=== PATIENT | male | born 1965 | race Caucasian/White ===

== ENCOUNTER 2020-06-02 16:32 | Emergency (ER) | payer MEDICAID, SELFPAY ==
[2020-06-02 17:21] VITALS: BP 113/77; PULSE 90; RESP 18; TEMP 37.4; O2SAT 97; BMI 18.1
--- NOTE | 2020-06-02 17:22 | ED.URI ---
HPI - URI/Sore Throat General Chief Complaint: Upper Respiratory Symptoms Stated Complaint: COUGH Time Seen by Provider: 06/02/20 17:11 Source: patient Mode of arrival: ambulatory Limitations: no limitations History of Present Illness HPI Narrative: states around this time of the year he will get runny nose/congestion and does a postnasal drip he will get some nausea. Mother at home with similar symptoms. presenting seeking cover test. MD elicited complaint: rhinorrhea and nasal congestion Onset (ago): day(s) Consistency: constant Severity: mild Description of mucous: clear Relieving factors: nothing Context: sick contacts Treatments prior to arrival: none Related Data Allergies Allergy/AdvReac Type Severity Reaction Status Date / Time bictegravir [BICTEGRAVIR] Allergy Unknown FATIGUE Unverified 05/03/20 16:04 dapsone [DAPSONE] Allergy Unknown G6PD Unverified 05/03/20 16:04 DEFICIENT methotrexate [METHOTREXATE] Allergy Unknown HIGH Unverified 05/03/20 16:04 LFT's, Elevated LFTs Sulfa (Sulfonamide Allergy Unknown G6PD Unverified 05/03/20 16:04 Antibiotics) DEFICIENT [SULFA (SULFONAMIDE ANTIBIOTICS)] sulfamethoxazole Allergy Unknown G6PD Unverified 05/03/20 16:04 [From BACTRIM] DEFICIENT trimethoprim [From BACTRIM] Allergy Unknown G6PD Unverified 05/03/20 16:04 DEFICIENT Yozpklmvriq-Iciytyxzkc-Taesiow Allergy Unknown fatigue Uncoded 10/05/19 00:00 Sulfamethoxazole Allergy Unknown G6PD Uncoded 10/05/19 00:00 Deficient Sulfonamide Antibiotics Allergy Unknown Elevated Uncoded 10/05/19 00:00 LFTs Review of Systems Review of Systems: Constitutional: No Weight loss, No Fever, No Chills, No Night Sweats, No Fatigue, No Malaise ENT/Mouth: No Hearing loss, No Ear Pain, No Nasal Congestion, No Sinus Pain, No Hoarseness, No sore throat, No Swallowing Difficulty Eyes: No Eye Pain, No Swelling, No Redness, No Foreign Body, No Discharge, No Vision Changes Cardiovascular: No Chest Pain, No SOB, No Dyspnea on Exertion, No Orthopnea, No Edema, No Palpitations Respiratory: No Cough, No Sputum, No Wheezing, No Smoke Exposure, No Dyspnea Gastrointestinal: No Nausea, No Vomiting, No Diarrhea, No Constipation, No abdominal Pain, No Hematochezia, No Melena Genitourinary: no irregular bleeding, No Dysuria, No Urinary Frequency, No Hematuria, No Urinary Incontinence, No Urgency, No Flank Pain, No Urinary Flow Changes, No Hesitancy Musculoskeletal: No joint pain, No Myalgias, No Joint Swelling Skin: No Skin Lesions, No rash Neuro: No Weakness, No Numbness, No Paresthesias, No Loss of Consciousness, No Dizziness, No Headache Psych: No Anxiety/Panic, No Depression, No SI/HI/AH/VH, No Social Issues, Heme/Lymph: No Bruising, No Bleeding,No Lymphadenopathy Endocrine: No Polyuria, No Polydipsia, No Temperature Intolerance Yes all other systems are reviewed and are negative [facility] Past Medical History Attestation statement: The following information was validated with the patient. Social History Social History Smoking Status: Never smoker Substance Use Type: Marijuana Advance Directives: No Advance Directives Information Provided: No Physical Exam Vital Signs: Vital Signs: Reviewed Const: General: cooperative and healthy appearing; No acute distress or intoxicated appearing Nutritional Appearance: average body habitus Orientation/consciousness: patient oriented x3 HENMT: Head: Yes normal to inspection Ears: hearing grossly normal bilaterally Eyes: General: appearance normal, both eyes and all related structures Visual Navas: normal visual navas by confrontation Neck: Neck: Yes normal visual inspection and No tender Thyroid: Thyroid normal Chest: Chest palpation & inspection: normal inspection of the chest Resp: Effort & Inspection: normal respiratory effort Cardio: Jugular venous distension: no JVD GI: Inspection: Yes normal to inspection Percussion: Yes normal to percussion Auscultation: normal bowel sounds : General: Yes no CVA tenderness Back/Spine/Pelvis: Back: no CVA tenderness Skin: General skin exam: no rashes or lesions noted Neuro: General: patient oriented x3 Extrem: General: Yes normal to inspection Discharge Plan Discharge Clinical Impression: Viral infection Patient Disposition: Home, Self-Care Instructions: Viral Syndrome (ED) Additional Instructions: Based on your symptoms and history we have sent a COVID-19. Although your RESULT IS PENDING at this time. ? RESULTS should return within 72 hours. ? At this time you will be contacted with either NEGATIVE OR POSITIVE results. ? -Please wait until we contact you for your results. ? At this time you will be okay for discharge. Please plan for self quarantine for up to 14 days. Do not expose yourself to others. You may not go to work. If testing does come back negative you may return to activities as long as you are no longer having any symptoms for at least 3 days. ? Please continue to follow cold instructions and wash your hands frequently. You may take Tylenol as directed on the bottle for pain or fever. ? Patient seen in the emergency department on 02/10/2020 and should be excused from work until negative test results AND until 72 hours without any symptoms AND at least 10 days have passed since symptoms first appeared or since last exposure to COVID-19 positive patient ? CDC Guidelines for home isolation: - Stay away from others - WEAR A MASK if you are sick AND STAY HOME - Cover your mouth and nose with a tissue when you cough or sneeze. Dispose of tissues in a lined trash can and wash your hands immediately with soap and water for at least 20 seconds. If soap and water are not available, clean hands with alcohol-based hand presidential helicopter crew chief that contains at least 60% alcohol. - Clean your hands often with soap and water for at least 20 seconds - Avoid touching your eyes, nose and mouth with unwashed hands - Do not share dishes, drinking glasses, cups, eating utensils, towels, or bedding with other people in your home. After using these items, wash them thoroughly with soap and water or put in the electroplating sales representative. - Clean high-touch surfaces in your isolation area ( sick room and bathroom) every day; let a caregiver clean and disinfect high-touch surfaces in other areas of the home. Clean the area or item with soap and water or another detergent if it is dirty. Then, use a household disinfectant. - Limit contact with pets and animals: If you must care for a pet, wash your hands before and after interacting with them Referrals: Michell Mallory MD [Primary Care Provider] - 1 week (Phone VISIT )
== END 2020-06-02 17:30 | disposition home or self-care (01) ==
PROVIDERS: Nurse Practitioner Primary Care; Emergency Provider Emergency Medicine; PCP Family Medicine
DX: B34.9 Viral infection, unspecified (principal); Z20.828 Contact with and (suspected) exposure to other viral communicable diseases; F12.90 Cannabis use, unspecified, uncomplicated; Z21 Asymptomatic human immunodeficiency virus [HIV] infection status
CPT/HCPCS: 87635; 99283

== ENCOUNTER 2020-06-04 15:55 | Emergency (ER) | payer MEDICAID, SELFPAY ==
[2020-06-04 16:13] VITALS: BP 132/87; PULSE 86; RESP 18; TEMP 37.3; O2SAT 97; BMI 17.2
[2020-06-04 16:52] VITALS: BP 140/81; PULSE 78; RESP 18; O2SAT 97
--- NOTE | 2020-06-04 17:04 | PC.NURSE ---
PT ALERT AND ORIENTED, SKIN APPROPRIATE FOR ETHNICITY, RESPIRATIONS EVEN AND UNLABORED. PT REPORTS THAT HE IS UNABLE TO EAT, WHEN HE EATS HE STATES HIS STOMACH IS CLOSED, AND HAVING SOME ABD PAIN ALL OVER, DENIES NAUSEA AND DIARRHEA, ALSO REPORTS LOOSING WEIGHT IN LAST COUPLE OF WEEKS, SCLERA APPEARS SLIGHT YELLOW AT THIS TIME, VS STABLE
--- NOTE | 2020-06-04 18:57 | PC.NURSE ---
report taken from kolby patel. pt sitting in bed, rene just saw patient. pt in nad, pt neuro intact. pt very thin, sclera jaundice. primarily slovenian speaking
--- NOTE | 2020-06-04 19:09 | CT_ITS ---
EXAMINATION: CT CHEST, ABDOMEN AND PELVIS WITHOUT CONTRAST CLINICAL INFORMATION: Concern for malignancy. Unintentional weight loss. COMPARISON: Abdominal pelvic CT from May 10, 2020. TECHNIQUE: Contiguous axial thin section helical images of the chest, abdomen and pelvis without oral or IV contrast. The data set was reformatted in the coronal and sagittal planes and reviewed on an independent workstation. Please note that the examination is significantly limited secondary to the lack of IV contrast. As such, it is not possible to appropriately evaluate for any possible malignancy. DLP: 439 mGy-cm. FINDINGS: The heart is of normal size. There is no pericardial effusion. There is no axillary lymphadenopathy. There is no demonstrable hilar or mediastinal lymphadenopathy; however, please note that evaluation for hilar and mediastinal lymphadenopathy is significantly limited due to the lack of IV contrast. There are no chest wall masses. Review of lung windows demonstrates that there are neither pleural effusions nor pneumothoraces. There is atelectasis within the azygos esophageal recess. Within both lower lobes, there is multifocal patchy groundglass opacification. There are no pulmonary parenchymal nodules. The liver is of normal size and attenuation without focal lesions nor intrahepatic biliary ductal dilation. There are calculi within the gallbladder lumen. There is no wall thickening or discernible pericholecystic fluid. The spleen, pancreas, adrenal glands are unremarkable. Again identified is an atrophic left kidney. The right kidney is of normal size and attenuation. There is no hydronephrosis. Within the upper pole of the right kidney there are 2 punctate nonobstructive renal calculi each measuring 2 mm. There is a 2 mm nonobstructive calculus within the interpole region of the right kidney. There is no abdominal free fluid. There is neither mesenteric nor retroperitoneal lymphadenopathy. Normal opacified loops of small and large bowel are identified. There is no pelvic free fluid. The urinary bladder is unremarkable. There is neither pelvic nor inguinal lymphadenopathy. Bone windows: Neither sclerotic nor lytic bone lesions are identified. There are bilateral L5 pars defects with grade 1-2 anterolisthesis of L5 in relation to S1. IMPRESSION: Please note that the examination is significantly limited secondary to the lack of IV contrast. As such, it is not possible to appropriately evaluate for any possible malignancy. There is no demonstrable mediastinal or hilar lymphadenopathy. However, please note that evaluation is, as stated above, significantly limited. Patchy multifocal airspace disease noted within both lower lobes. This is most likely medical claims representative of an infectious or inflammatory process. Recommendation is for a several month follow-up chest CT to assure resolution of this appearance. Cholelithiasis without evidence of cholecystitis. Atrophic left kidney. No right-sided hydronephrosis. Nonobstructive right renal calculi. Automated exposure control (Care Dose) Adjustment of the mA and/or kv according to patient size (this includes techniques or standardized protocols for targeted exams where dose is matched to indication / reason for exam; i.e. extremities or head).
--- NOTE | 2020-06-04 19:09 | ED_ITS ---
HPI - General Adult General Chief complaint: Failure to Thrive Stated complaint: unable to eat Time Seen by Provider: 06/04/20 16:50 Source: patient Mode of arrival: ambulatory Limitations: no limitations History of Present Illness HPI narrative: patient comes to emergency room complaining a 30 lb weight loss in 2 months. Patient states he has been having diffuse abdominal pain for 2 months now, patient states every time he eats his abdomen hurts and also when he gets he feels full fairly quickly. Patient states he is being treated for HIV but the treatment has been ongoing since 1985. Onset (ago): month(s) Related Data Allergies Allergy/AdvReac Type Severity Reaction Status Date / Time bictegravir [BICTEGRAVIR] Allergy Unknown FATIGUE Verified 06/04/20 16:18 dapsone [DAPSONE] Allergy Unknown G6PD Verified 06/04/20 16:18 DEFICIENT methotrexate [METHOTREXATE] Allergy Unknown HIGH Verified 06/04/20 16:18 LFT's, Elevated LFTs Sulfa (Sulfonamide Allergy Unknown G6PD Verified 06/04/20 16:18 Antibiotics) DEFICIENT [SULFA (SULFONAMIDE ANTIBIOTICS)] sulfamethoxazole Allergy Unknown G6PD Verified 06/04/20 16:18 [From BACTRIM] DEFICIENT trimethoprim [From BACTRIM] Allergy Unknown G6PD Verified 06/04/20 16:18 DEFICIENT Oxdomwledcy-Sxagtgtqmo-Avlvdlt Allergy Unknown fatigue Uncoded 10/05/19 00:00 Sulfamethoxazole Allergy Unknown G6PD Uncoded 10/05/19 00:00 Deficient Sulfonamide Antibiotics Allergy Unknown Elevated Uncoded 10/05/19 00:00 LFTs Review of Systems Review of Systems: Constitutional : 35 lb Weight loss, No Fever, No Chills, No Night Sweats, No Fatigue, No Malaise ENT/Mouth : No Hearing loss, No Ear Pain, No Nasal Congestion, No Sinus Pain, No Hoarseness, No sore throat, No Rhinorrhea, No Swallowing Difficulty Eyes: No Eye Pain, No Swelling, No Redness, No Foreign Body, No Discharge, No Vision Changes Cardiovascular : No Chest Pain, No SOB, No Dyspnea on Exertion, No Orthopnea, No Edema, No Palpitations Respiratory : No Cough, No Sputum, No Wheezing, No Smoke Exposure, No Dyspnea Gastrointestinal : No Nausea, No Vomiting, No Diarrhea, abdominal pain with meals Genitourinary : no irregular bleeding, No Dysuria, No Urinary Frequency, No Hematuria, No Urinary Incontinence, No Urgency, No Flank Pain, No Urinary Flow Changes, No Hesitancy Musculoskeletal : No joint pain, No Myalgias, No Joint Swelling Skin : No Skin Lesions, No rash Neuro : No Weakness, No Numbness, No Paresthesias, No Loss of Consciousness, No Dizziness, No Headache Psych : No Anxiety/Panic, No Depression, No SI/HI/AH/VH, No Social Issues, Heme/Lymph: No Bruising, No Bleeding,No Lymphadenopathy Endocrine : No Polyuria, No Polydipsia, No Temperature Intolerance [facility] Past Medical History Medical History HIV (human immunodeficiency virus infection) Social History Social History Smoking Status: Never smoker Use of substances other than those prescribed or required for medical reasons: Yes Substance Use Type: Marijuana Substance Use Frequency: Daily Advance Directives: No Advance Directives Information Provided: No Physical Exam Vital Signs: Vital Signs: Vital Signs Temp Pulse Resp BP Pulse Ox 06/04/20 20:30 98.5 F 59 18 133/77 99 06/04/20 16:52 78 18 140/81 H 97 06/04/20 16:13 99.2 F 86 18 132/87 97 Body Mass Index 17.2 Appearance: Alert. Oriented X3. No acute distress, cachectic Eyes: Pupils equal, round and reactive to light. ENT: Pharynx normal. Neck: Normal inspection. Neck supple. No lymph nodes noted. No crepitus CVS: Normal heart rate and rhythm. Pulses normal. Normal S1 and S2 Respiratory: No respiratory distress. Breath sounds normal. No Wheezing. No rales Abdomen: Soft and nontender. No rigidity. No distention. good BS x4 Skin: Skin warm and dry. Normal skin color. Normal skin turgor. Extremities: No lower extremity edema. No lower extremity edema. No Lacerations. No Rash Neuro: Oriented X 3. No motor deficit. No sensory deficit. Moving all extermities. No slurred speech. Medical Decision Making MDM Narrative Medical decision making narrative: patient's CT scan was not done with contrast because of patient's elevated creatinine I discussed with the patient his CT scan results and his labs. At this moment, it is on conclusive why he is losing so much weight. I discussed with the patient that he will need an upper endoscopy and a colonoscopy. Differential Diagnosis Differential Diagnosis: Peptic ulcer, versus gastritis versus malignancy Lab Data Result diagrams: 06/04/20 19:19 06/04/20 19:19 Labs: Lab Results 06/04/20 06/04/20 06/04/20 Range/Units 19:19 19:19 19:19 WBC 3.6 L (4.8-10.8) X10*3/uL RBC 3.94 L (4.60-5.80) X10*6/uL Hgb 11.6 L (14.0-18.0) g/dl Hct 35.7 L (42-52) % MCV 90.6 (80-98) fL MCH 29.4 (27.0-33.0) pg MCHC 32.5 (31.0-36.0) g/dl RDW 12.0 (11.0-16.0) % Plt Count 133 L (160-400) X10*3/uL MPV 11.7 (9.4-12.4) fL Immature Gran % (Auto) 0.8 H (0.0-0.4) % Neut % (Auto) 64.6 (45-73) % Lymph % (Auto) 24.2 (20-40) % Bureau % (Auto) 9.3 (2-11) % Eos % (Auto) 0.8 (0-4) % Baso % (Auto) 0.3 (0-2) % Lymph # (Auto) 0.9 L (1.2-4.9) X10*3/uL Bureau # (Auto) 0.3 (0.1-1.2) X10*3/uL Eos # (Auto) 0.0 (0.0-0.4) X10*3/uL Baso # (Auto) 0.0 (0.0-0.2) X10*3/uL Abs Immat Gran (auto) 0.03 (0.00-0.03) X10*3/uL Absolute Neuts (auto) 2.4 (2.0-8.3) X10*3/uL Absolute Nucleated RBC 0.000 (0.0-0.012) X10*3/uL Nucleated RBC % (auto) 0.0 (0.0-0.2) /100WBC Sodium 144 (135-145) mmol/L Potassium 4.5 (3.3-5.1) mmol/l Chloride 106 (96-108) mmol/L Carbon Dioxide 29 (22-29) mmol/L Anion Gap 14 (12-20) BUN 20 H (9-16) mg/dL Creatinine 1.77 H (0.5-1.4) mg/dL Estim Creat Clear Calc 31.7 Estimated GFR 40 Random Glucose 71 (60-115) mg/dL Calcium 8.5 (8.4-10.2) mg/dL Magnesium 2.0 (1.6-2.6) mg/dL Total Bilirubin 0.6 (0.0-1.0) mg/dL Direct Bilirubin 0.3 (0.0-0.5) mg/dL AST 19 (5-37) U/L ALT 13 (0-40) U/L Alkaline Phosphatase 71 (39-117) U/L Total Protein 6.8 (6.5-8.0) g/dL Albumin 3.6 (3.5-5.0) g/dL Lipase 51 (8-78) U/L Urine Color YELLOW Urine Appearance CLEAR Urine pH 6.0 (5.0-8.0) Ur Specific [place] 1.025 (1.005-1.025) Urine Protein 1+ H (NEG-TRACE) MG/DL Urine Glucose (UA) NEG (NEG) MG/DL Urine Ketones NEG (NEG) MG/DL Urine Blood TRACE (NEG) Urine Nitrite NEG (NEG) Ur Leukocyte Esterase NEG (NEG) Urine RBC 0-2 (0) /HPF Urine WBC 0 (0-4) /HPF Ur Squamous Epith Cells NONE /LPF Urine Bacteria NONE /LPF Imaging Data CT scan of chest abdomen and pelvis: Radiologist's impression: There is no demonstrable mediastinal or hilar lymphadenopathy. However, please note that evaluation is, as stated above, significantly limited. Patchy multifocal airspace disease noted within both lower lobes. This is most likely traffic workforce representative of an infectious or inflammatory process. Recommendation is for a several month follow-up chest CT to assure resolution of this appearance. Cholelithiasis without evidence of cholecystitis. Atrophic left kidney. No right-sided hydronephrosis. Nonobstructive right renal calculi. Discharge Plan Discharge Clinical Impression: Excessive weight loss, Early satiety Patient Disposition: Home, Self-Care Additional Instructions: please follow-up with her primary care physician. You will likely need a referral to gastroenterology for an upper and lower endoscopy. If you have any new symptoms or worsening symptoms, please return to the emergency room or call 911. Referrals: Dale Castaneda MD [Physician] - 2 days
[2020-06-04] MEDS: 0.9 % Sodium Chloride 1,000 ML 999 ML IVCONT ×2 (19:20→20:54)
[2020-06-04 19:32] LABS: Basophils Percent Auto 0.3 % (0-2); Eosinophils Percent Auto 0.8 % (0-4); Hemoglobin 11.6 g/dl (14.0-18.0); PLT CLUMP 1; SCAN SMEAR FLAG 1
[2020-06-04 19:34] LABS: Appearance Urine CLEAR; Color Urine YELLOW; Glucose Urine UA NEG (NEG); Hematocrit 35.7 % (42-52); Imm Gran Abs Auto 0.03 X10*3/uL (0.00-0.03); Imm Gran Pct Auto 0.8 % (0.0-0.4); Leukocyte Esterase Urine NEG (NEG); Lymphocytes Absolute Auto 0.9 X10*3/uL (1.2-4.9); Lymphocytes Percent Auto 24.2 % (20-40); Mean Corpuscular HGB Conc 32.5 g/dl (31.0-36.0); Mean Corpuscular Hemoglobin 29.4 pg (27.0-33.0); Mean Corpuscular Volume 90.6 fL (80-98); Mean Platelet Volume 11.7 fL (9.4-12.4); Monocytes Absolute Auto 0.3 X10*3/uL (0.1-1.2); Monocytes Percent Auto 9.3 % (2-11); Neutrophils Absolute Auto 2.4 X10*3/uL (2.0-8.3); Neutrophils Percent Auto 64.6 % (45-73); Nitrite Urine NEG (NEG); Platelet Count 133 X10*3/uL (160-400); Red Blood Count 3.94 X10*6/uL (4.60-5.80); Specific Gravity - Urine 1.025 (1.005-1.025); Urine Blood TRACE (NEG); Urine Ketones NEG (NEG); Urine Protein 1+ MG/DL (NEG-TRACE); White Blood Count 3.6 X10*3/uL (4.8-10.8)
[2020-06-04 19:35] LABS: MANUAL DIFF FLAG NO
[2020-06-04 19:44] LABS: RBC Urine 0-2 /HPF (0); WBC Urine 0 /HPF (0-4)
[2020-06-04 20:00] LABS: Alanine Aminotransferase 13 U/L (0-40); Albumin Level 3.6 g/dL (3.5-5.0); Alkaline Phosphatase 71 U/L (39-117); Anion Gap 14 (12-20); Aspartate Amino Transferase 19 U/L (5-37); Bilirubin Direct 0.3 mg/dL (0.0-0.5); Bilirubin Total 0.6 mg/dL (0.0-1.0); Blood Urea Nitrogen 20 mg/dL (9-16); Calcium 8.5 mg/dL (8.4-10.2); Carbon Dioxide 29 mmol/L (22-29); Chloride 106 mmol/L (96-108); Creatinine Clr Calc Pharmacy 31.7; Estimated Glomerular Filt Rate 40; Glucose Random 71 mg/dL (60-115); Lipase 51 U/L (8-78); Potassium 4.5 mmol/l (3.3-5.1); Sodium 144 mmol/L (135-145); Total Protein 6.8 g/dL (6.5-8.0)
[2020-06-04 20:30] VITALS: BP 133/77; PULSE 59; RESP 18; TEMP 36.9; O2SAT 99
[2020-06-04 22:12] VITALS: BP 145/81; PULSE 65; RESP 18; TEMP 36.8; O2SAT 100
--- NOTE | 2020-06-04 22:20 | PC.NURSE ---
sandwich given dr lópez at bedside for re eval
== END 2020-06-04 22:33 | disposition home or self-care (01) ==
PROVIDERS: Emergency Provider Emergency Medicine; PCP Family Medicine
DX: R63.4 Abnormal weight loss (principal); R68.81 Early satiety; F12.90 Cannabis use, unspecified, uncomplicated; Z21 Asymptomatic human immunodeficiency virus [HIV] infection status; Z79.899 Other long term (current) drug therapy
CPT/HCPCS: 36415; 71250; 74176; 80048; 80076; 81001; 83690; 83735; 85025; 96360; 96361; 99285

== ENCOUNTER → 2020-08-29 08:46 | Outpatient (BNVA) | payer MEDICAID, SELFPAY | PROVIDERS: PCP Family Medicine; Referring Provider Family Medicine; Visit Provider Student in an Organized Health Care Education/Training Program | DX: Z76.89 Persons encountering health services in other specified circumstances (principal) ==

== ENCOUNTER 2020-11-01 | Outpatient (REF) | payer MEDICAID, SELFPAY ==
[2020-11-01 14:46] LABS: MANUAL DIFF FLAG NO
[2020-11-01 14:50] LABS: Basophils Percent Auto 0.4 % (0-2); Eosinophils Absolute Auto 0.1 X10*3/uL (0.0-0.4); Eosinophils Percent Auto 2.4 % (0-4); Hematocrit 39.2 % (42-52); Hemoglobin 12.8 g/dl (14.0-18.0); Imm Gran Abs Auto 0.01 X10*3/uL (0.00-0.03); Imm Gran Pct Auto 0.2 % (0.0-0.4); Lymphocytes Absolute Auto 0.9 X10*3/uL (1.2-4.9); Lymphocytes Percent Auto 18.6 % (20-40); Mean Corpuscular HGB Conc 32.7 g/dl (31.0-36.0); Mean Corpuscular Hemoglobin 30.3 pg (27.0-33.0); Mean Corpuscular Volume 92.7 fL (80-98); Mean Platelet Volume 12.6 fL (9.4-12.4); Monocytes Absolute Auto 0.3 X10*3/uL (0.1-1.2); Monocytes Percent Auto 6.7 % (2-11); Neutrophils Absolute Auto 3.6 X10*3/uL (2.0-8.3); Neutrophils Percent Auto 71.7 % (45-73); Platelet Count 133 X10*3/uL (160-400); Red Blood Count 4.23 X10*6/uL (4.60-5.80); Red Cell Distribution Width 12.2 % (11.0-16.0); White Blood Count 5.1 X10*3/uL (4.8-10.8)
[2020-11-01 15:21] LABS: Alanine Aminotransferase 14 U/L (0-40); Albumin Level 4.2 g/dL (3.5-5.0); Alkaline Phosphatase 83 U/L (39-117); Anion Gap 13 (12-20); Aspartate Amino Transferase 19 U/L (5-37); Bilirubin Total 1.2 mg/dL (0.0-1.0); Blood Urea Nitrogen 19 mg/dL (9-16); C Reactive Protein 0.45 mg/dL (< or = 0.50); Calcium 9.1 mg/dL (8.4-10.2); Carbon Dioxide 29 mmol/L (22-29); Chloride 104 mmol/L (96-108); Estimated Glomerular Filt Rate 37; Glucose Random 87 mg/dL (60-115); Potassium 4.5 mmol/L (3.3-5.1); Sodium 141 mmol/L (135-145)
[2020-11-01 15:31] LABS: Erythrocyte Sedimentation Rate 14 MM/HR (0-15)
[2020-11-06 08:03] LABS: TS Negative Control Passed; TS Panel A 0; TS Panel B 0; TS Positive Control Passed; TSpotTB Negative (SeeBelow)
== END 2020-11-01 00:01 ==
LOC: HO.MRI
PROVIDERS: Student in an Organized Health Care Education/Training Program; Visit Provider Psychiatry & Neurology Neurology
DX: L40.50 Arthropathic psoriasis, unspecified (principal); B20 Human immunodeficiency virus [HIV] disease; N28.9 Disorder of kidney and ureter, unspecified; B19.20 Unspecified viral hepatitis C without hepatic coma; Z88.2 Allergy status to sulfonamides; Z88.8 Allergy status to other drugs, medicaments and biological substances; Z79.899 Other long term (current) drug therapy
CPT/HCPCS: 36415; 80053; 85025; 85652; 86140; 86481; 99212

== ENCOUNTER 2020-11-07 17:59 | Outpatient (REF) | payer MEDICAID, SELFPAY ==
--- NOTE | ~2020-11-07 | MR_ITS ---
EXAMINATION: MR BRAIN WITHOUT CONTRAST CLINICAL INFORMATION: Seizures. COMPARISON: CT head from 05/17/2014. Brain MRI from 03/20/2008. TECHNIQUE: MRI of the brain was obtained using routine sequences without contrast. FINDINGS: No focal restricted diffusion is demonstrated to suggest acute or subacute cerebral ischemia. No evidence of acute or chronic hemorrhagic products on heme-sensitive imaging. Chronic, extensive, confluent periventricular and deep white matter T2 FLAIR hyperintensity. The ventricles are normal in morphology and size. No abnormal mass effect. No midline shift. The hippocampi are symmetric in size, contour, and signal intensity. The temporal horns appear symmetric. Normal appearance of the pituitary gland. Normal positioning of the cerebellar tonsils. Normal arterial and venous vascular flow voids are present. Normal, homogeneous marrow signal. Mild mucosal thickening of the paranasal sinuses. No signal abnormalities within the mastoids. MR/MR head/brain wo con IMPRESSION: 1. No acute intracranial abnormalities. 2. Chronic extensive leukoencephalopathy, similar distribution but slightly decreased in degree compared to exam from 2007.
== END 2020-11-07 18:00 | disposition home or self-care (01) ==
LOC: HO.MRI 17:59
PROVIDERS: Visit Provider Psychiatry & Neurology Neurology
DX: G40.909 Epilepsy, unspecified, not intractable, without status epilepticus (principal)
CPT/HCPCS: 70551

== ENCOUNTER 2020-11-27 16:09 | Outpatient (REF) | payer MEDICAID, SELFPAY ==
--- NOTE | ~2020-11-27 | CT_ITS ---
EXAMINATION: CT CHEST WITHOUT CONTRAST CLINICAL INFORMATION: Follow-up abnormal chest CT COMPARISON: Previous chest CT May 2020 TECHNIQUE: Multidetector volumetric CT imaging of the chest was done. Axial MIP volume rendering provided. Sagittal and coronal reformatted images were obtained. This CT examination was performed using dose optimization techniques as appropriate, variously including the following: *Automated exposure control *Adjustment of mA and/or kV according to patient size (this includes techniques or standardized protocols for targeted exams where dose is matched to indication/reason for exam; i.e. extremities or head) *Use of iterative reconstruction technique DLP: 94 mGy-cm FINDINGS: MBA INTERNSHIP: Unremarkable LUNGS: The bilateral lower lobe patchy groundglass opacities seen on May 2020 exam have resolved. The lungs are clear. MEDIASTINUM: The mediastinum is normal. PLEURA: There is no pleural effusion. No pleural mass or thickening. AXILLA: No lymphadenopathy. UPPER ABDOMEN: The left kidney appears atrophic. There are small bilateral renal calcifications suggestive of small stones. OSSEOUS STRUCTURES: There are mild degenerative changes of the spine and scoliosis.. There is slight loss of height of the T5 and T6 vertebral body superior endplates questionable for mild old compression fractures. This appears unchanged. CT/CT chest wo con IMPRESSION: Resolved bilateral lower lobe groundglass opacities from May 2020 exam. The lungs are clear. Atrophic-appearing left kidney. Small bilateral renal stones.
== END 2020-11-27 16:10 | disposition home or self-care (01) ==
LOC: HO.CT 16:09
PROVIDERS: Visit Provider Family Medicine
DX: R93.89 Abnormal findings on diagnostic imaging of other specified body structures (principal); U07.1 COVID-19
CPT/HCPCS: 71250

== ENCOUNTER 2021-01-03 14:16 | Outpatient (REF) | payer MEDICAID, SELFPAY ==
[2021-01-03 15:51] LABS: Hemoglobin 13.6 g/dl (14.0-18.0); Mean Corpuscular HGB Conc 33.2 g/dl (31.0-36.0); Mean Corpuscular Hemoglobin 30.6 pg (27.0-33.0); Mean Corpuscular Volume 92.1 fL (80-98); Mean Platelet Volume 12.4 fL (9.4-12.4); Platelet Count 131 X10*3/uL (160-400); Red Blood Count 4.45 X10*6/uL (4.60-5.80); Red Cell Distribution Width 12.2 % (11.0-16.0); White Blood Count 5.9 X10*3/uL (4.8-10.8)
[2021-01-03 16:06] LABS: Anion Gap 11 (12-20); Blood Urea Nitrogen 21 mg/dL (9-16); Calcium 9.5 mg/dL (8.4-10.2); Carbon Dioxide 31 mmol/L (22-29); Chloride 107 mmol/L (96-108); Estimated Glomerular Filt Rate 32; Glucose Random 93 mg/dL (60-115); Potassium 4.9 mmol/L (3.3-5.1); Sodium 144 mmol/L (135-145)
== END 2021-01-03 14:17 | disposition home or self-care (01) ==
LOC: HO.LAB 14:16
PROVIDERS: PCP Family Medicine; Referring Provider Family Medicine; Visit Provider Nurse Practitioner Family
DX: R10.9 Unspecified abdominal pain (principal); K21.9 Gastro-esophageal reflux disease without esophagitis
CPT/HCPCS: 36415; 80048; 85027

== ENCOUNTER → 2021-01-31 11:12 | Day surgery (SDC) | payer MEDICAID, SELFPAY ==
[2021-01-25 15:03] VITALS: BMI 18.1
[2021-01-25 15:32] VITALS: BMI 16.6
--- NOTE | 2021-01-29 13:13 | HO.ANESPROP2 ---
HPI - Anesthesia Eval Consult details Narrative: 55yo M for Colonoscopy Multiple med allergies/ G6PD Deficiency Suboxone daily PMFSH Active Problems Active Problems: All Active Problems (Updated 01/25/21 @ 15:31 by Svitlana Atkinson) G6PD deficiency (Acute) Chronic hepatitis C (Acute) Chronic hepatitis B (Acute) Chronic kidney disease, stage 3 (Acute) Psoriatic arthritis (Acute) Chronic, continuous use of opioids (Acute) Nephrolithiasis (Acute) Compensated HCV cirrhosis (Acute) Venous stasis of both lower extremities (Acute) H/O immunosuppressive therapy (Acute) Methadone maintenance therapy patient (Acute) HIV (human immunodeficiency virus infection) (Acute) Past Medical History Medical History (Updated 01/29/21 @ 13:20 by Sherlyn Wynn) Arthritis Chronic hepatitis B Chronic hepatitis C Chronic kidney disease, stage 3 Chronic, continuous use of opioids Compensated HCV cirrhosis Epigastric pain Failure to thrive G6PD deficiency History of COVID-19 HIV (human immunodeficiency virus infection) Methadone maintenance therapy patient Poor dentition Psoriatic arthritis Unintentional weight loss Venous stasis of both lower extremities Surgical History Surgical History (Updated 01/25/21 @ 15:29 by Svitlana Atkinson) No significant past surgical history Social History Social History Patient Tobacco Use Status: Former Tobacco user Quit Date: 1999 Use of substances other than those prescribed or required for medical reasons: Yes Substance Use Type: Marijuana Substance Use Frequency: Daily Are you DNR?: No Advance Directives: No Advance Directives Information Provided: No Advance Directives on File: No Recently lost weight without trying: Yes How much weight loss: 24-33 pounds Poor oral hygiene: Yes Meds Allergies Allergy/AdvReac Type Severity Reaction Status Date / Time bictegravir [BICTEGRAVIR] Allergy Unknown FATIGUE Verified 01/03/21 14:30 dapsone [DAPSONE] Allergy Unknown G6PD Verified 01/03/21 14:30 DEFICIENT methotrexate [METHOTREXATE] Allergy Unknown HIGH Verified 01/03/21 14:30 LFT's, Elevated LFTs Sulfa (Sulfonamide Allergy Unknown G6PD Verified 01/03/21 14:30 Antibiotics) DEFICIENT [SULFA (SULFONAMIDE ANTIBIOTICS)] sulfamethoxazole Allergy Unknown G6PD Verified 01/03/21 14:30 [From BACTRIM] DEFICIENT trimethoprim [From BACTRIM] Allergy Unknown G6PD Verified 01/03/21 14:30 DEFICIENT Seaouhjvybj-Yyzqmgsgkh-Bfqggcn Allergy Unknown fatigue Uncoded 10/05/19 00:00 Sulfamethoxazole Allergy Unknown G6PD Uncoded 10/05/19 00:00 Deficient Sulfonamide Antibiotics Allergy Unknown Elevated Uncoded 10/05/19 00:00 LFTs Home Medications Medication Instructions Recorded Confirmed Last Taken Type darunavir ethanolate 800 mg tablet 800 mg PO DAILY 07/19/20 01/25/21 Unknown History docusate sodium 100 mg capsule 100 mg PO DAILY 07/19/20 08/29/20 Unknown History dolutegravir 50 mg tablet 50 mg PO DAILY 07/19/20 08/29/20 Unknown History atovaquone 750 mg/5 mL oral 1,500 mg PO DAILY 01/03/21 01/25/21 Unknown History suspension buprenorphine-naloxone [Suboxone] 1 strip SUBLINGUAL BID 01/25/21 01/25/21 01/31/21 History Exam Exam Date and Time: January 29, 2021 1313 Height,Weight and Vital Signs: Height 5 ft 5 in Weight 45.359 kg Pertinent Lab Results Pertinent Lab Results: Laboratory Tests 01/03/21 01/03/21 15:24 15:24 WBC 5.9 Hgb 13.6 L Hct 41.0 L Plt Count 131 L Sodium 144 Potassium 4.9 Chloride 107 Carbon Dioxide 31 H BUN 21 H Creatinine 2.15 H Assessment and Plan Assessment Anesthesia Assessment: Chart Reviewed
[2021-01-31 12:20] VITALS: BP 135/77; PULSE 60; RESP 18; TEMP 37.1; O2SAT 99
--- NOTE | 2021-01-31 12:32 | PC.NURSE ---
pt ate all day dr mills cancelled case
== END ==
PROVIDERS: PCP Family Medicine; Visit Provider Internal Medicine Gastroenterology
DX: Z12.11 Encounter for screening for malignant neoplasm of colon (principal); Z53.9 Procedure and treatment not carried out, unspecified reason

== ENCOUNTER 2021-04-17 12:51 | Day surgery (SDC) | payer MEDICAID, SELFPAY ==
[2021-03-13 20:29] VITALS: BMI 18.3
--- NOTE | 2021-04-16 10:53 | HO.ANESPROP2 ---
Documented by User: Sherlyn Wynn NP 04/16/21 10:55 HPI - Anesthesia Eval Consult details Narrative: 55yo M for Colonoscopy Multiple med allergies/ G6PD Deficiency Suboxone daily PMFSH Active Problems Active Problems: All Active Problems (Updated 01/29/21 @ 13:20 by Sherlyn Wynn NP) Compensated HCV cirrhosis (Acute) Chronic hepatitis B (Acute) Chronic hepatitis C (Acute) Nephrolithiasis (Acute) H/O immunosuppressive therapy (Acute) HIV (human immunodeficiency virus infection) (Acute) Past Medical History Medical History Arthritis Chronic hepatitis B Chronic hepatitis C Chronic kidney disease, stage 3 Chronic, continuous use of opioids Compensated HCV cirrhosis Epigastric pain Failure to thrive G6PD deficiency History of COVID-19 HIV (human immunodeficiency virus infection) Methadone maintenance therapy patient Poor dentition Psoriatic arthritis Unintentional weight loss Venous stasis of both lower extremities Surgical History Surgical History No significant past surgical history Social History Social History Patient Tobacco Use Status: Former Tobacco user Quit Date: 1999 Substance Use Type: Marijuana Are you DNR?: No Advance Directives: No Advance Directives Information Provided: Yes Advance Directives on File: No Meds Allergies Allergy/AdvReac Type Severity Reaction Status Date / Time bictegravir [BICTEGRAVIR] Allergy Unknown FATIGUE Verified 04/17/21 12:57 dapsone [DAPSONE] Allergy Unknown G6PD Verified 04/17/21 12:57 DEFICIENT methotrexate [METHOTREXATE] Allergy Unknown HIGH Verified 04/17/21 12:57 LFT's, Elevated LFTs Sulfa (Sulfonamide Allergy Unknown G6PD Verified 04/17/21 12:57 Antibiotics) DEFICIENT [SULFA (SULFONAMIDE ANTIBIOTICS)] sulfamethoxazole Allergy Unknown G6PD Verified 04/17/21 12:57 [From BACTRIM] DEFICIENT trimethoprim [From BACTRIM] Allergy Unknown G6PD Verified 04/17/21 12:57 DEFICIENT Dlnlynipclk-Vwrcgpnvgg-Wisqbus Allergy Unknown fatigue Uncoded 10/05/19 00:00 Sulfamethoxazole Allergy Unknown G6PD Uncoded 10/05/19 00:00 Deficient Sulfonamide Antibiotics Allergy Unknown Elevated Uncoded 10/05/19 00:00 LFTs Home Medications Medication Instructions Recorded Confirmed Last Taken Type darunavir ethanolate 800 mg tablet 800 mg PO DAILY 07/19/20 03/13/21 Unknown History (Prezista) docusate sodium 100 mg capsule 100 mg PO DAILY 07/19/20 03/13/21 Unknown History (Colace) dolutegravir 50 mg tablet (Tivicay) 50 mg PO DAILY 07/19/20 03/13/21 Unknown History atovaquone 750 mg/5 mL oral 1,500 mg PO DAILY 01/03/21 03/13/21 Unknown History suspension buprenorphine 8 mg-naloxone 2 mg 1 strip SUBLINGUAL BID 01/25/21 03/13/21 01/31/21 History sublingual film (Suboxone) Exam Exam Date and Time: April 16, 2021 1053 Height,Weight and Vital Signs: Height 5 ft 5 in Weight 49.895 kg Pertinent Lab Results Pertinent Lab Results: Laboratory Tests 01/03/21 01/03/21 15:24 15:24 WBC 5.9 Hgb 13.6 L Hct 41.0 L Plt Count 131 L Sodium 144 Potassium 4.9 Chloride 107 Carbon Dioxide 31 H BUN 21 H Creatinine 2.15 H Assessment and Plan Assessment Anesthesia Assessment: Chart Reviewed Documented by User: Sanaz Chamorro MD 04/17/21 13:05 [facility] Past Medical History Medical History Arthritis Chronic hepatitis B Chronic hepatitis C Chronic kidney disease, stage 3 Chronic, continuous use of opioids Compensated HCV cirrhosis Epigastric pain Failure to thrive G6PD deficiency History of COVID-19 HIV (human immunodeficiency virus infection) Methadone maintenance therapy patient Poor dentition Psoriatic arthritis Unintentional weight loss Venous stasis of both lower extremities Family History Family history of problems with anesthesia: No Surgical History Surgical History No significant past surgical history History of Problems with Anesthesia: No Social History Social History Patient Tobacco Use Status: Former Tobacco user Quit Date: 1999 Substance Use Type: Marijuana Are you DNR?: No Advance Directives: No Advance Directives Information Provided: Yes Advance Directives on File: No Meds Allergies Allergy/AdvReac Type Severity Reaction Status Date / Time bictegravir [BICTEGRAVIR] Allergy Unknown FATIGUE Verified 04/17/21 12:57 dapsone [DAPSONE] Allergy Unknown G6PD Verified 04/17/21 12:57 DEFICIENT methotrexate [METHOTREXATE] Allergy Unknown HIGH Verified 04/17/21 12:57 LFT's, Elevated LFTs Sulfa (Sulfonamide Allergy Unknown G6PD Verified 04/17/21 12:57 Antibiotics) DEFICIENT [SULFA (SULFONAMIDE ANTIBIOTICS)] sulfamethoxazole Allergy Unknown G6PD Verified 04/17/21 12:57 [From BACTRIM] DEFICIENT trimethoprim [From BACTRIM] Allergy Unknown G6PD Verified 04/17/21 12:57 DEFICIENT Vtektwnwlzt-Zluiyrxjaw-Fcoodpo Allergy Unknown fatigue Uncoded 10/05/19 00:00 Sulfamethoxazole Allergy Unknown G6PD Uncoded 10/05/19 00:00 Deficient Sulfonamide Antibiotics Allergy Unknown Elevated Uncoded 10/05/19 00:00 LFTs Home Medications Medication Instructions Recorded Confirmed Last Taken Type darunavir ethanolate 800 mg tablet 800 mg PO DAILY 07/19/20 03/13/21 Unknown History (Prezista) docusate sodium 100 mg capsule 100 mg PO DAILY 07/19/20 03/13/21 Unknown History (Colace) dolutegravir 50 mg tablet (Tivicay) 50 mg PO DAILY 07/19/20 03/13/21 Unknown History atovaquone 750 mg/5 mL oral 1,500 mg PO DAILY 01/03/21 03/13/21 Unknown History suspension buprenorphine 8 mg-naloxone 2 mg 1 strip SUBLINGUAL BID 01/25/21 03/13/21 01/31/21 History sublingual film (Suboxone) Exam Airway Mallampati Class: II TM Dist: >3cm Neck ROM: Full Heart: rrr Lungs: cta Assessment and Plan Assessment Anesthesia Assessment: Anesthesia Plan Discussed and Chart Reviewed Final Anesthetic Review Family History of Problems with Anesthesia: No History of Problems with Anesthesia: No NPO: Yes ASA Class: III Final Preanesthetic Review: No Changes in Pt Med Stat, Meds/Allgs Chart Reviewed and Consent Obtained/Reviewed Patient Risk: Intermediate Procedure Risk: Intermediate Anesthetic Plan Anesthetic Plan: MAC: Disposition: Standard PACU
[2021-04-17 13:12] VITALS: BP 143/76; PULSE 61; RESP 15; TEMP 36.5; O2SAT 99
[2021-04-17] MEDS: Lactated Ringers 1,000 ML 100 ML IVCONT (13:28)
--- NOTE | 2021-04-17 14:09 | MHC.SHP ---
Pre-Procedural Eval Section A Date of Service: 04/17/21 Section B Chief Complaint: screening Relevant Family History (Specify if Yes): No Relevant Social History: Other (specify) (THC) Present Medications: see Short Stay Collaborative assessment Medical History: Significant History (Arthritis Chronic hepatitis B Chronic hepatitis C Chronic kidney disease, stage 3 Chronic, continuous use of opioids Compensated HCV cirrhosis Epigastric pain Failure to thrive G6PD deficiency History of COVID-19 HIV (human immunodeficiency virus infection) Methadone maintenance therapy patient Poor) Allergies: Allergies Allergy/AdvReac Type Severity Reaction Status Date / Time bictegravir [BICTEGRAVIR] Allergy Unknown FATIGUE Verified 04/17/21 12:57 dapsone [DAPSONE] Allergy Unknown G6PD Verified 04/17/21 12:57 DEFICIENT methotrexate [METHOTREXATE] Allergy Unknown HIGH Verified 04/17/21 12:57 LFT's, Elevated LFTs Sulfa (Sulfonamide Allergy Unknown G6PD Verified 04/17/21 12:57 Antibiotics) DEFICIENT [SULFA (SULFONAMIDE ANTIBIOTICS)] sulfamethoxazole Allergy Unknown G6PD Verified 04/17/21 12:57 [From BACTRIM] DEFICIENT trimethoprim [From BACTRIM] Allergy Unknown G6PD Verified 04/17/21 12:57 DEFICIENT Jqqopuyujje-Cboqoqwkcq-Ubtwzua Allergy Unknown fatigue Uncoded 10/05/19 00:00 Sulfamethoxazole Allergy Unknown G6PD Uncoded 10/05/19 00:00 Deficient Sulfonamide Antibiotics Allergy Unknown Elevated Uncoded 10/05/19 00:00 LFTs Review of Systems Sugical H&P ROS: Negative: Constitution, Cardiovascular, Respiratory, Neurological, Psychiatric, Hem-Onc, Allergic/Immunologic, Gastrointestinal, Genitourinary, Musculoskeletal, Integumentary, Endocrine and Eyes/Ears/Nose/Throat Exam Surgical H&P Exam: Normal: HEENT, Normal: Heart, Normal: Lungs, Normal: Extremities, Normal: Abdomen, Normal: Skin and Normal: Neurological Plan Diagnosis/Plan: Unchanged I have reviewed the history and physical and performed a pertinent physical examination on my patient. No changes have occurred unless specified.
--- NOTE | 2021-04-17 14:11 | P.OP_ITS ---
Operative Note Operative Note Date of Service: 04/17/21 Narrative: Operative Information Procedure Description: Colonoscopy COLONOSCOPY Instrument: Olympus variable stiffness pediatric scope 190L Colonoscopy Monitoring: Vital signs and clinical assessment, continuous EKG monitoring, Pulse oximetry, Carbon Dioxide monitoring and blood pressure monitoring were done throughout the procedure. Colon withdrawal time was 11 minutes. Procedure: The patient was placed in the left lateral decubitis position and pre-procedure medications were administered. After a digital rectal examination of the ano-rectum, the video colonoscope was inserted into the rectum and advanced through the colon to the cecum/TI. The colonoscope was slowly withdrawn in a retrograde panoramic fashion and the colon mucosa was carefully examined including a retroflexed view of the rectum. Findings and interventions are described below. Procedure Difficulty:moderate Findings: Terminal Gagnh-heobgl-acpv superficially intubated Cecum:normal Ascending Colon: x 2 diminutive polyps 4-5 mm removed with forceps Transverse Colon -normal Descending Colon:normal Sigmoid Colon: normal Rectum: Retroflexion with small internal hemorrhoids, grade I Anorectum - normal Colon preparation: [place] Bowel Preparation Scale Right colon; 1 Transverse colon: 2 Left colon; 1 (0 = Unprepared colon segment with mucosa not seen due to solid stool that cannot be cleared. 1 = Portion of mucosa of the colon segment seen, but other areas of the colon segment not well seen due to staining, residual stool and/or opaque liquid. 2 = Minor amount of residual staining, small fragments of stool and/or opaque li quid, but mucosa of colon segment seen well. 3 = Entire mucosa of colon segment seen well with no residual staining, small fragments of stool or opaque liquid) Impression and Post Procedure Diagnosis: polyps internal hemorrhoids Plan: High fiber diet leaflet Avoid straining at stool, epsom salts and sitz bath, anusol supps or cream Repeat Colonoscopy in 1-2 years or earlier if clinically indicated, next time review prep with patient again and emphasize compliance Above findings were reviewed with the patient and relevant handouts were provided if indicated.
--- NOTE | 2021-04-17 14:11 | P.BOP_ITS ---
Brief Operative Note Date of Service: 04/17/21 Pre-op diagnosis: colon screening Post-op diagnosis: same Procedure: see op note Surgeon: Nina Chase MD Anesthesia: MAC Was an Public Information Specialist used for this Procedure?: No Estimated blood loss (mL): 0 Condition: stable Disposition: PACU
[2021-04-17 14:45] VITALS: BP 84/55; PULSE 60; RESP 16; TEMP 36.2; O2SAT 99
[2021-04-17 15:00] VITALS: BP 138/83; PULSE 58; RESP 18; O2SAT 100
[2021-04-17 15:10] VITALS: TEMP 36.4
== END 2021-04-17 15:40 | disposition home or self-care (01) ==
PROVIDERS: PCP Family Medicine; Visit Provider Internal Medicine Gastroenterology
PROC: 0DJD8ZZ Inspection of Lower Intestinal Tract, Via Natural or Artificial Opening Endoscopic (ICD-10-PCS; CPT 45378; principal; 2021-04-17 14:10)
DX: Z12.11 Encounter for screening for malignant neoplasm of colon (principal); K63.5 Polyp of colon; K64.0 First degree hemorrhoids; Z21 Asymptomatic human immunodeficiency virus [HIV] infection status; N18.9 Chronic kidney disease, unspecified
CPT/HCPCS: 45380; 88305

== ENCOUNTER → 2021-04-24 08:51 | Outpatient (BNVA) | payer MEDICAID, SELFPAY | PROVIDERS: PCP Family Medicine; Visit Provider Student in an Organized Health Care Education/Training Program ==

== ENCOUNTER 2021-11-06 09:34 | Outpatient (REF) | payer MEDICAID, SELFPAY ==
[2021-11-06 09:53] LABS: MANUAL DIFF FLAG NO
[2021-11-06 10:05] LABS: Basophils Percent Auto 0.3 % (0-2); Eosinophils Absolute Auto 0.2 X10*3/uL (0.0-0.4); Eosinophils Percent Auto 3.3 % (0-4); Hematocrit 43.6 % (42.0-52.0); Imm Gran Abs Auto 0.03 X10*3/uL (0.00-0.03); Imm Gran Pct Auto 0.5 % (0.0-0.4); Lymphocytes Absolute Auto 1.1 X10*3/uL (1.2-4.9); Lymphocytes Percent Auto 16.6 % (20-40); Mean Corpuscular HGB Conc 32.1 g/dl (31.0-36.0); Mean Corpuscular Hemoglobin 30.2 pg (27.0-33.0); Mean Corpuscular Volume 94.2 fL (80.0-98.0); Mean Platelet Volume 11.7 fL (9.4-12.4); Monocytes Absolute Auto 0.4 X10*3/uL (0.1-1.2); Monocytes Percent Auto 5.4 % (2-11); Neutrophils Absolute Auto 4.9 x10*3/uL (2.0-8.3); Neutrophils Percent Auto 73.9 % (45-73); Platelet Count 139 X10*3/uL (160-400); Red Blood Count 4.63 X10*6/uL (4.60-5.80); Red Cell Distribution Width 12.5 % (11.0-16.0); White Blood Count 6.6 X10*3/uL (4.8-10.8)
[2021-11-06 10:45] LABS: Alanine Aminotransferase 17 U/L (0-40); Albumin Level 4.3 g/dL (3.5-5.0); Alkaline Phosphatase 113 U/L (39-117); Anion Gap 12 (12-20); Aspartate Amino Transferase 21 U/L (5-37); Bilirubin Total 1.2 mg/dL (0.0-1.0); Blood Urea Nitrogen 22 mg/dL (9-16); C Reactive Protein 1.35 mg/dL (< or = 0.50); Calcium 9.8 mg/dL (8.4-10.2); Carbon Dioxide 29 mmol/L (22-29); Chloride 107 mmol/L (96-108); Estimated Glomerular Filt Rate 41; Glucose Random 106 mg/dL (60-115); Potassium 4.4 mmol/L (3.3-5.1); Sodium 144 mmol/L (135-145); Total Protein 7.5 g/dL (6.5-8.0)
[2021-11-06 10:51] LABS: Erythrocyte Sedimentation Rate 17 MM/HR (0-15)
== END 2021-11-06 09:35 | disposition home or self-care (01) ==
LOC: HO.LAB 09:34
PROVIDERS: PCP Family Medicine; Visit Provider Student in an Organized Health Care Education/Training Program
DX: L40.50 Arthropathic psoriasis, unspecified (principal)
CPT/HCPCS: 36415; 80053; 85025; 85652; 86140

== ENCOUNTER → 2021-11-25 14:10 | Outpatient (BNVA) | payer MEDICAID, SELFPAY | PROVIDERS: PCP Family Medicine; Visit Provider Nurse Practitioner Family | DX: L40.50 Arthropathic psoriasis, unspecified (principal) | CPT/HCPCS: 99212 ==

== ENCOUNTER 2021-11-27 12:44 | Outpatient (REF) | payer MEDICAID, SELFPAY ==
[2021-11-28 05:03] LABS: HBc Num1 1.19 S/CO (0.00-0.79); ~Hepatitis B Surface Antibody NONREACTIVE (Nonreactive)
[2021-11-28 05:11] LABS: Hepatitis B Surface Antigen Negative (Negative)
[2021-11-28 05:58] LABS: HBc Num2 1.14 S/CO; Hepatitis B Core Antibody Reactive (Nonreactive); ~HepC Num2 0.99; ~HepC Num3 0.99
[2021-11-29 07:36] LABS: HBsAGNum1 0.15 S/CO (0.00-0.99); ~HepC Num1 1.28 S/CO (0.00-0.79); ~Hepatitis C Antibody Reactive (Nonreactive)
[2021-11-29 07:42] LABS: Hepatitis A Antibody IgM 0.33 Index (0-0.79); ~Hepatitis A Antibody IgM Nonreactive (Nonreactive)
[2021-11-29 14:06] LABS: HIV RNA PCR Qn Copies 226 copies/mL (NOT DETECTED); HIV RNA PCR Qn Log Copies 2.35 (NOT DETECTED)
[2021-11-29 17:26] LABS: TS Negative Control Passed; TS Panel A 0; TS Panel B 0; TS Positive Control Passed; TSpotTB Negative (Negative)
[2021-11-30 20:45] LABS: Hepatitis B Core Antibody IgM NON-REACTIVE (NON-REACTIVE)
[2021-12-01 13:46] LABS: HCV Log PCR <1.18 NOT DETECTED Log IU/mL (NOT DETECTED); HepC Viral Load <15 NOT DETECTED IU/mL (NOT DETECTED)
== END 2021-11-27 12:45 | disposition home or self-care (01) ==
LOC: HO.LAB 12:44
PROVIDERS: PCP Family Medicine; Visit Provider Nurse Practitioner Family
DX: L40.50 Arthropathic psoriasis, unspecified (principal); B20 Human immunodeficiency virus [HIV] disease
CPT/HCPCS: 36415; 86481; 86704; 86705; 86706; 86709; 86803; 87340; 87522; 87536

== ENCOUNTER → 2022-02-27 12:36 | Outpatient (BNVA) | payer MEDICAID, SELFPAY | PROVIDERS: PCP Nurse Practitioner Family; Visit Provider Nurse Practitioner Family | DX: L40.50 Arthropathic psoriasis, unspecified (principal) | CPT/HCPCS: 99212 ==

== ENCOUNTER 2022-04-25 12:39 | Outpatient (REF) | payer MEDICAID, SELFPAY ==
[2022-04-25 12:49] LABS: MANUAL DIFF FLAG NO
[2022-04-25 13:21] LABS: Basophils Percent Auto 0.6 % (0-2); Eosinophils Absolute Auto 0.3 X10*3/uL (0.0-0.4); Eosinophils Percent Auto 3.9 % (0-4); Hematocrit 40.6 % (42.0-52.0); Hemoglobin 13.4 g/dl (14.0-18.0); Imm Gran Abs Auto 0.02 X10*3/uL (0.00-0.03); Imm Gran Pct Auto 0.3 % (0.0-0.4); Lymphocytes Absolute Auto 1.4 X10*3/uL (1.2-4.9); Lymphocytes Percent Auto 20.8 % (20-40); Mean Corpuscular Hemoglobin 29.8 pg (27.0-33.0); Mean Corpuscular Volume 90.2 fL (80.0-98.0); Mean Platelet Volume 12.4 fL (9.4-12.4); Monocytes Absolute Auto 0.4 X10*3/uL (0.1-1.2); Monocytes Percent Auto 5.8 % (2-11); Neutrophils Absolute Auto 4.6 x10*3/uL (2.0-8.3); Neutrophils Percent Auto 68.6 % (45-73); Platelet Count 147 X10*3/uL (160-400); White Blood Count 6.7 X10*3/uL (4.8-10.8)
[2022-04-25 14:01] LABS: Alanine Aminotransferase 15 U/L (0-40); Aspartate Amino Transferase 19 U/L (5-37); C Reactive Protein 0.18 mg/dL (< or = 0.50); Estimated Glomerular Filt Rate 33
[2022-04-25 14:05] LABS: Erythrocyte Sedimentation Rate 10 MM/HR (0-15)
[2022-04-28 14:02] LABS: Absolute CD3 Count 891 cells/uL (840-3060); Absolute CD4 Count 327 cells/uL (490-1740); Absolute CD8 Count 570 cells/uL (180-1170); Absolute Lymphocytes 1268 cells/uL (850-3900); CD4 CD8 Ratio 0.57 (0.86-5.00); Percent CD3 Cells 70 % (57-85); Percent CD4 Cells 26 % (30-61); Percent CD8 Cells 45 % (12-42)
== END 2022-04-25 12:40 | disposition home or self-care (01) ==
LOC: HO.LAB 12:39
PROVIDERS: Visit Provider Nurse Practitioner Family
DX: B20 Human immunodeficiency virus [HIV] disease (principal); L40.50 Arthropathic psoriasis, unspecified; Z79.899 Other long term (current) drug therapy
CPT/HCPCS: 36415; 82565; 84450; 84460; 85025; 85652; 86140; 86359; 86360

== ENCOUNTER 2022-07-04 17:19 | Emergency (ER) | payer MEDICAID, SELFPAY ==
--- NOTE | ~2022-07-04 | CT_ITS ---
EXAMINATION: CT HEAD WITHOUT CONTRAST CLINICAL INFORMATION: Window fell on head COMPARISON: Head CT 05/17/2014 TECHNIQUE: Imaging was performed from the skull base to vertex without intravenous administration of contrast. This CT examination was performed using dose optimization techniques as appropriate, variously including the following: *Automated exposure control *Adjustment of mA and/or kV according to patient size (this includes techniques or standardized protocols for targeted exams where dose is matched to indication/reason for exam; i.e. extremities or head) *Use of iterative reconstruction technique Total exam dose length product: 602 mGy-cm FINDINGS: No intra or extra-axial fluid collection, hemorrhage, or mass. No ventriculomegaly. No midline shift or herniation. Basal cisterns are patent. Ross-white matter differentiation is maintained. No territorial encephalomalacia. No significant volume loss. Similar appearance of extensive confluent hypoattenuation throughout the supratentorial white matter bilaterally. No calvarial fracture or soft tissue abnormality. The mastoid air cells and visualized portions of the paranasal sinuses are well aerated. CT/CT head/brain wo IV con IMPRESSION: No acute intracranial pathology.
--- NOTE | ~2022-07-04 | XR_ITS ---
EXAMINATION: XR hand LT 2V CLINICAL INFORMATION: Reason for Exam crush.lacs. r/o retained glass COMPARISON: Left hand radiographs 01/15/2012 TECHNIQUE: AP, lateral, and oblique views of the hand FINDINGS: No acute fracture or dislocation. Advanced degenerative changes of the wrist with complete loss of radiocarpal joint space, subchondral sclerosis and cystic change. Osseous fusion across the fourth and fifth DIP joints. The second and third DIP joints demonstrate advanced loss of joint space with central erosions which could be seen in the setting of erosive arthropathy. Loss of joint space involving the first through fifth metacarpophalangeal joints with volar subluxation of the second and third and potentially fourth proximal phalanges with respect to the metacarpal heads and flexion of the PIP joints involving the second through fourth digits, progressed from prior which could be seen in the setting of rheumatoid arthritis if clinical history is appropriate. Soft tissue swelling along the dorsum of the hand. No radiopaque retained foreign body. XR/XR hand LT 2V IMPRESSION: Soft tissue swelling along the dorsum of the hand. No radiopaque retained foreign body. 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
[2022-07-04 17:52] VITALS: BP 145/89; PULSE 82; RESP 16; TEMP 37; O2SAT 94; BMI 16.6
--- NOTE | 2022-07-04 17:52 | ED.UPPEXIN ---
HPI - Extremity Injury (Upper) General Chief Complaint: Wound/Laceration <KALI Rodriguez - Last Filed: 07/04/22 17:58> Stated Complaint: left hand laceration and head <KALI Rodriguez - Last Filed: 07/04/22 17:58> Time Seen by Provider: 07/04/22 18:05 <KALI Rodriguez - Last Filed: 07/04/22 17:58> Source: patient <Lottie Womack CNP - Last Filed: 07/04/22 19:03> Mode of arrival: ambulatory <Lottie Womack CNP - Last Filed: 07/04/22 19:03> Limitations: no limitations <Ltotie Womack CNP - Last Filed: 07/04/22 19:03> History of Present Illness HPI narrative: Patient is a 57-year-old male who presents to emergency department for evaluation laceration to the hand and head. Reports that approximately 10:00pm yesterday a glass window had fallen landing on top of his head and to the left hand. He states that his hand has been painful since this occurred, he also has swelling, with 2 lacerations to the top of the hand. currently denies any numbness or tingling to the fingers or cold sensation. There is localized swelling across failure is also complaining of a mild headache. He denies any loss of consciousness during this. Denies dizziness, lightheadedness, vision changes, pain, neck stiffness. Unaware of last tetanus vaccine. <Lottie Womack CNP - Last Filed: 07/04/22 19:03> Related Data Home Medications: Home Medications Medication Instructions Recorded Confirmed dolutegravir 50 mg tablet (Tivicay) 50 mg PO DAILY 07/19/20 11/25/21 buprenorphine 8 mg-naloxone 2 mg 1 strip sublingual BID 01/25/21 03/13/21 sublingual film (Suboxone) darunavir 800 mg-cobicistat 150 mg 1 tab PO BEDTIME 11/25/21 11/25/21 tablet (Prezcobix) naloxone 4 mg/actuation nasal 1 spray intranasal PRN 11/25/21 11/25/21 spray (Narcan) Previous Rx's Medication Instructions Recorded famotidine 20 mg tablet (Pepcid) 20 mg PO DAILY #30 tabs 01/03/21 adalimumab 40 mg/0.4 mL 40 mg (0.4 mL) subcut Q2W #2 ea 06/03/22 subcutaneous syringe kit (Humira(CF)) <KALI Rodriguez - Last Filed: 07/04/22 17:58> Allergies/Adverse Reactions: Allergies Allergy/AdvReac Type Severity Reaction Status Date / Time bictegravir [BICTEGRAVIR] Allergy Unknown FATIGUE Verified 07/04/22 17:57 dapsone [DAPSONE] Allergy Unknown G6PD Verified 07/04/22 17:57 DEFICIENT methotrexate [METHOTREXATE] Allergy Unknown HIGH Verified 07/04/22 17:57 LFT's, Elevated LFTs Sulfa (Sulfonamide Allergy Unknown G6PD Verified 07/04/22 17:57 Antibiotics) DEFICIENT [SULFA (SULFONAMIDE ANTIBIOTICS)] sulfamethoxazole Allergy Unknown G6PD Verified 07/04/22 17:57 [From BACTRIM] DEFICIENT trimethoprim [From BACTRIM] Allergy Unknown G6PD Verified 07/04/22 17:57 DEFICIENT Suthzkoffbv-Rczmqjycfj-Nhrcvol Allergy Unknown fatigue Uncoded 07/04/22 17:57 Sulfamethoxazole Allergy Unknown G6PD Uncoded 07/04/22 17:57 Deficient Sulfonamide Antibiotics Allergy Unknown Elevated Uncoded 07/04/22 17:57 LFTs <KALI Rodriguez - Last Filed: 07/04/22 17:58> [facility] Past Medical History Attestation statement: The following information was validated with the patient. <Lottie Womack CNP - Last Filed: 07/04/22 19:03> Source: old records reviewed <Lottie Womack CNP - Last Filed: 07/04/22 19:03> Medical History: Medical History Arthritis Chronic hepatitis B Chronic hepatitis C Chronic kidney disease, stage 3 Chronic, continuous use of opioids Compensated HCV cirrhosis Epigastric pain Failure to thrive G6PD deficiency History of COVID-19 HIV (human immunodeficiency virus infection) Methadone maintenance therapy patient Poor dentition Psoriatic arthritis Unintentional weight loss Venous stasis of both lower extremities <KALI Rodriguez - Last Filed: 07/04/22 17:58> Surgical History: Surgical History History of removal of cyst No significant past surgical history <KALI Rodriguez - Last Filed: 07/04/22 17:58> Social History Social History: Social History Patient Tobacco Use Status: Former Tobacco user Quit Date: 1999 Substance Use Type: Marijuana Advance Directives: No Advance Directives Information Provided: No <KALI Rodriguez - Last Filed: 07/04/22 17:58> Physical Exam Vital Signs: Vital Signs: Last Vital Signs Temp 98.6 F 07/04/22 17:52 Pulse 82 07/04/22 17:52 Resp 16 07/04/22 17:52 BP 145/89 H 07/04/22 17:52 Pulse Ox 94 07/04/22 17:52 O2 Del Method 07/04/22 17:52 BMI result Body Mass Index 16.6 <KALI Rodriguez - Last Filed: 07/04/22 17:58> Vital Signs: Last Vital Signs Temp 98.6 F 07/04/22 17:52 Pulse 82 07/04/22 17:52 Resp 16 07/04/22 17:52 BP 145/89 H 07/04/22 17:52 Pulse Ox 94 07/04/22 17:52 O2 Del Method 07/04/22 17:52 BMI result Body Mass Index 16.6 <Lottie Womack CNP - Last Filed: 07/04/22 19:03> Vital Signs: Last Vital Signs Temp 98.6 F 07/04/22 17:52 Pulse 82 07/04/22 17:52 Resp 16 07/04/22 17:52 BP 145/89 H 07/04/22 17:52 Pulse Ox 94 07/04/22 17:52 O2 Del Method 07/04/22 17:52 BMI result Body Mass Index 16.6 <Annette Larson NP - Last Filed: 07/04/22 19:34> Appearance: Alert.?Oriented to person, place and time. No acute distress.?Normal affect. Head: Normocephalic. Tenderness upon palpation left scientologist region, no lacerations present. No hematoma. Eyes: Pupils equal, round and reactive to light.? EOMI. No nystagmus. ENT: Pharynx normal.?? Neck: Normal inspection.? Neck supple.??No midline cervical spine tenderness, step-offs, deformities CVS: Heart sounds normal. Normal heart rate and rhythm.? Pulses normal.?? Respiratory: No respiratory distress.? Lung sounds clear to auscultation bilaterally?? Abdomen: Soft and non-tender. Normoactive bowel sounds. Skin: Skin warm and dry.? Normal skin color.? Two superficial linear lacerations to the dorsal left hand, no active bleeding, no purulent drainage, localized swelling. 2+ radial pulse bilaterally, full range of motion to the left digits and wrist. Extremities: No lower extremity edema.? Neuro: Moves all extremities spontaneously. Sensation intact bilaterally. CN II-XII intact. No focal neuro deficits. Ambulates with normal steady gait. <Lottie Womack CNP - Last Filed: 07/04/22 19:03> Course Course Course Narrative: RME--57yo M pmhx HIV (levels undetectable estela patient) c/o glass window falling on head and crushing L hand last night 10PM. +head pain and L hand pain/swelling and superficial lacs. Tetanus unknown. Denies LOC. +ttp to L frontal forehead. L hand swollen with [address], x-ray, Tdap ordered <KALI Rodriguez - Last Filed: 07/04/22 17:58> Reevaluation(s) Reevaluation #1: Patient is a 57-year-old male with a past medical history of arthritis, hepatitis-B, hepatitis-C, HIV, CKD, G6PD deficiency who presents emergency department for evaluation of lacerations to left hand in pain after injury in addition to left frontal headache. At the time of examination he is well-appearing. No focal neurological deficits. Head CT is pending from rapid medical exam in triage and XR of the left hand is pending. Lacerations cleansed with normal saline, closure with been removed. Tetanus vaccine updated. <Lottie Womack CNP - Last Filed: 07/04/22 19:03> Time: 18:14 <Lottie Womack CNP - Last Filed: 07/04/22 19:03> Reevaluation #2: Patient signed out to Steven Larson, pending CT of the head in XR the left hand. If results are normal, patient can be cleared for discharge home. <Lottie Womack CNP - Last Filed: 07/04/22 19:03> Time: 19:01 <Lottie Womack CNP - Last Filed: 07/04/22 19:03> Reevaluation #3: 1930-CT head shows no acute finding. X-ray of hand shows no foreign body, no acute fracture but severe degenerative changes. Plan for discharge home <Annette Larson NP - Last Filed: 07/04/22 19:34> Medications Administered Discontinued Medications Generic Name Dose Route Start Last Admin Trade Name Freq PRN Reason Stop Dose Admin Diphtheria/Tetanus/Acell Pertussis 0.5 ml 07/04/22 17:55 07/04/22 18:09 Diphth,Pertus(Acell),Tet Adult 0.5 Ml Syringe IM 07/04/22 17:56 0.5 ml .ONCE ONE Administration <KALI Rodriguez - Last Filed: 07/04/22 17:58> Medications Administered Discontinued Medications Generic Name Dose Route Start Last Admin Trade Name Freq PRN Reason Stop Dose Admin Diphtheria/Tetanus/Acell Pertussis 0.5 ml 07/04/22 17:55 07/04/22 18:09 Diphth,Pertus(Acell),Tet Adult 0.5 Ml Syringe IM 07/04/22 17:56 0.5 ml .ONCE ONE Administration <Lottie Womack CNP - Last Filed: 07/04/22 19:03> Medications Administered Discontinued Medications Generic Name Dose Route Start Last Admin Trade Name Freq PRN Reason Stop Dose Admin Diphtheria/Tetanus/Acell Pertussis 0.5 ml 07/04/22 17:55 07/04/22 18:09 Diphth,Pertus(Acell),Tet Adult 0.5 Ml Syringe IM 07/04/22 17:56 0.5 ml .ONCE ONE Administration <Annette Larson NP - Last Filed: 07/04/22 19:34> MDM - Extremity Injury (Upper) Medical Records Attestation: I reviewed the patient's medical records. <Lottie Womack CNP - Last Filed: 07/04/22 19:03> Imaging Data CT scan - head: Attestation: I personally reviewed and interpreted this imaging study as follows: <Annette Larson NP - Last Filed: 07/04/22 19:34> Radiologist's impression: [place] [id number] CT Scan Report Signed Patient: Joe Echols MR#: [id number] : 1965 Acct:[id number] Age/Sex: 57 / M ADM Date: 07/04/22 Loc: HO.ED Attending Dr: Ordering Physician: Kelsey Martinez Date of Service: 07/04/22 Procedure(s): CT head/brain wo IV con Accession Number(s): [id number] cc: Kelsey Martinez~ EXAMINATION: CT HEAD WITHOUT CONTRAST CLINICAL INFORMATION: Window fell on head? COMPARISON: Head CT 05/17/2014 TECHNIQUE: Imaging was performed from the skull base to vertex without intravenous administration of contrast. This CT examination was performed using dose optimization techniques as appropriate, variously including the following: *Automated exposure control *Adjustment of mA and/or kV according to patient size (this includes techniques or standardized protocols for targeted exams where dose is matched to indication/reason for exam; i.e. extremities or head) *Use of iterative reconstruction technique Total exam dose length product: 602 mGy-cm FINDINGS: No intra or extra-axial fluid collection, hemorrhage, or mass. No ventriculomegaly. No midline shift or herniation. Basal cisterns are patent. Ross-white matter differentiation is maintained. No territorial encephalomalacia. ?No significant volume loss. Similar appearance of extensive confluent hypoattenuation throughout the supratentorial white matter bilaterally. No calvarial fracture or soft tissue abnormality.? The mastoid air cells and visualized portions of the paranasal sinuses are well aerated. CT/CT head/brain wo IV con IMPRESSION: No acute intracranial pathology. ? <Annette Larson NP - Last Filed: 07/04/22 19:34> XR hand: Attestation: I personally reviewed and interpreted this imaging study as follows: <Annette Larson NP - Last Filed: 07/04/22 19:34> Radiologist's impression: [address] [address] XRay Report Signed Patient: Joe Echols MR#: [id number] : 1965 Acct:[id number] Age/Sex: 57 / M ADM Date: 07/04/22 Loc: HO.ED Attending Dr: Ordering Physician: Kelsey Martinez Date of Service: 07/04/22 Procedure(s): XR hand LT 2V Accession Number(s): [id number] cc: Kelsey Martinez~ EXAMINATION: XR hand LT 2V CLINICAL INFORMATION: Reason for Exam crush.lacs. r/o retained glass COMPARISON: Left hand radiographs 01/15/2012 TECHNIQUE: AP, lateral, and oblique views of the hand FINDINGS: No acute fracture or dislocation. ? Advanced degenerative changes of the wrist with complete loss of radiocarpal joint space, subchondral sclerosis and cystic change. Osseous fusion across the fourth and fifth DIP joints. The second and third DIP joints demonstrate advanced loss of joint space with central erosions which could be seen in the setting of erosive arthropathy. Loss of joint space involving the first through fifth metacarpophalangeal joints with volar subluxation of the second and third and potentially fourth proximal phalanges with respect to the metacarpal heads and flexion of the PIP joints involving the second through fourth digits, progressed from prior which could be seen in the setting of rheumatoid arthritis if clinical history is appropriate. Soft tissue swelling along the dorsum of the hand. No radiopaque retained foreign body. XR/XR hand LT 2V IMPRESSION: ? Soft tissue swelling along the dorsum of the hand. No radiopaque retained foreign body. ? 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 <Annette Larson NP - Last Filed: 07/04/22 19:34> Discharge Plan Discharge Clinical Impression: Acute head injury without loss of consciousness, Laceration, Traumatic hematoma of left hand <KALI Rodirguez - Last Filed: 07/04/22 17:58> Patient Disposition: Home, Self-Care <KALI Rodriguez - Last Filed: 07/04/22 17:58> Instructions: Head Injury (ED), Contusion in Adults (ED), Skin Adhesive Care (ED) <KALI Rodriguez - Last Filed: 07/04/22 17:58> Additional Instructions: Your tetanus vaccine was updated today. Please be sure that the left hand does not get wet for the next 24 hours, as this may disrupt the skin glue. You can take ibuprofen 200 mg, 3 tablets (600mg) every 6-8 hours as needed for pain. Apply ice to your hand for 10-15 minutes 3-4 times daily. Contact your primary care provider and arrange for a follow-up visit as needed Return to emergency department with any new or worsening symptoms or concerns. <KALI Rodriguez - Last Filed: 07/04/22 17:58> Prescriptions: No Action Humira(CF) 40 mg/0.4 mL syringe kit 40 mg subcut Q2W Qty: 2 0RF buprenorphine-naloxone [Suboxone] 8-2 mg film 1 strip sublingual BID Tivicay 50 mg tablet 50 mg PO DAILY famotidine [Pepcid] 20 mg tablet 20 mg PO DAILY Qty: 30 3RF Prezcobix 800-150 mg-mg tablet 1 tab PO BEDTIME naloxone [Narcan] 4 mg/actuation spray,non-aerosol 1 spray intranasal PRN <KALI Rodriguez - Last Filed: 07/04/22 17:58>
[2022-07-04] MEDS: Diphth,Pertus(ACell),Tet Adult 0.5 ML SYRINGE IM (18:09)
[2022-07-04 20:09] VITALS: BP 134/83; PULSE 93; RESP 16; TEMP 36.5; O2SAT 95
== END 2022-07-04 20:11 | disposition home or self-care (01) ==
PROVIDERS: Emergency Provider Emergency Medicine; PCP Family Medicine
DX: S01.01XA Laceration without foreign body of scalp, initial encounter (principal); S60.512A Abrasion of left hand, initial encounter; S60.222A Contusion of left hand, initial encounter; R51.9 Headache, unspecified; M54.2 Cervicalgia; W25.XXXA Contact with sharp glass, initial encounter; Y93.9 Activity, unspecified; Y92.9 Unspecified place or not applicable; Y99.9 Unspecified external cause status; Z87.891 Personal history of nicotine dependence; Z79.899 Other long term (current) drug therapy
CPT/HCPCS: 70450; 73120; 90471; 90715; 99284

== ENCOUNTER → 2022-08-13 09:28 | Outpatient (BNVA) | payer MEDICAID, SELFPAY | PROVIDERS: PCP Family Medicine; Visit Provider Nurse Practitioner Family | DX: L40.50 Arthropathic psoriasis, unspecified (principal); Z79.899 Other long term (current) drug therapy | CPT/HCPCS: 36415; 82565; 84450; 84460; 85025; 85652; 86140; 99212 ==

== ENCOUNTER 2022-08-13 10:28 | Outpatient (REF) | payer MEDICAID, SELFPAY ==
[2022-08-13 13:38] LABS: MANUAL DIFF FLAG NO
[2022-08-13 13:55] LABS: Basophils Percent Auto 0.3 % (0-2); Eosinophils Absolute Auto 0.1 X10*3/uL (0.0-0.4); Eosinophils Percent Auto 2.4 % (0-4); Hematocrit 42.3 % (42.0-52.0); Hemoglobin 13.9 g/dl (14.0-18.0); Imm Gran Abs Auto 0.01 X10*3/uL (0.00-0.03); Imm Gran Pct Auto 0.2 % (0.0-0.4); Lymphocytes Absolute Auto 1.1 X10*3/uL (1.2-4.9); Lymphocytes Percent Auto 18.8 % (20-40); Mean Corpuscular HGB Conc 32.9 g/dl (31.0-36.0); Mean Corpuscular Hemoglobin 30.3 pg (27.0-33.0); Mean Corpuscular Volume 92.2 fL (80.0-98.0); Mean Platelet Volume 12.7 fL (9.4-12.4); Monocytes Absolute Auto 0.3 X10*3/uL (0.1-1.2); Monocytes Percent Auto 5.2 % (2-11); Neutrophils Absolute Auto 4.2 x10*3/uL (2.0-8.3); Neutrophils Percent Auto 73.1 % (45-73); Platelet Count 129 X10*3/uL (160-400); Red Blood Count 4.59 X10*6/uL (4.60-5.80); Red Cell Distribution Width 12.2 % (11.0-16.0); White Blood Count 5.8 X10*3/uL (4.8-10.8)
[2022-08-13 14:05] LABS: Alanine Aminotransferase 18 U/L (0-40); Aspartate Amino Transferase 21 U/L (5-37); C Reactive Protein < 0.10 mg/dL (< or = 0.50); Estimated Glomerular Filt Rate 34
[2022-08-13 14:37] LABS: Erythrocyte Sedimentation Rate 6 MM/HR (0-15)
== END 2022-08-13 10:29 | disposition home or self-care (01) ==
LOC: HO.10HDL 10:28
PROVIDERS: Visit Provider Nurse Practitioner Family
DX: L40.50 Arthropathic psoriasis, unspecified (principal); Z79.899 Other long term (current) drug therapy
CPT/HCPCS: 36415; 82565; 84450; 84460; 85025; 85652; 86140

== ENCOUNTER 2022-11-14 10:32 | Outpatient (REF) | payer MEDICAID, SELFPAY ==
--- NOTE | ~2022-11-14 | MR_ITS ---
EXAMINATION: MR head/brain wo con MR/MR head/brain wo con FINDINGS/IMPRESSION: The ordered MRI examination could not be performed due to claustrophobia. Only a localizer sequence was performed without performing diagnostic sequences. The patient may be able to undergo the MRI examination at a later time after receiving pre-treatment for claustrophobia. No images were obtained.
== END 2022-11-14 10:33 | disposition home or self-care (01) ==
LOC: HO.MRI 10:32
PROVIDERS: PCP Family Medicine; Visit Provider Family Medicine
DX: G44.329 Chronic post-traumatic headache, not intractable (principal); H53.9 Unspecified visual disturbance; N18.32 Chronic kidney disease, stage 3b; N20.0 Calculus of kidney
CPT/HCPCS: 70551

== ENCOUNTER → 2022-12-04 09:55 | Outpatient (BNVA) | payer MEDICAID, SELFPAY | PROVIDERS: PCP Family Medicine; Visit Provider Nurse Practitioner Family | DX: N20.0 Calculus of kidney (principal) | CPT/HCPCS: 99202 ==

== ENCOUNTER 2022-12-08 11:45 | Outpatient (REF) | payer MEDICAID, SELFPAY ==
[2022-12-08 12:46] LABS: Basophils Percent Auto 0.4 % (0-2); Eosinophils Absolute Auto 0.2 X10*3/uL (0.0-0.4); Eosinophils Percent Auto 3.1 % (0-4); Hematocrit 40.6 % (42.0-52.0); Hemoglobin 13.6 g/dl (14.0-18.0); Imm Gran Abs Auto 0.02 X10*3/uL (0.00-0.03); Imm Gran Pct Auto 0.4 % (0.0-0.4); Lymphocytes Absolute Auto 1.1 X10*3/uL (1.2-4.9); Lymphocytes Percent Auto 21.9 % (20-40); MANUAL DIFF FLAG NO; Mean Corpuscular HGB Conc 33.5 g/dl (31.0-36.0); Mean Corpuscular Hemoglobin 30.3 pg (27.0-33.0); Mean Corpuscular Volume 90.4 fL (80.0-98.0); Mean Platelet Volume 11.9 fL (9.4-12.4); Monocytes Absolute Auto 0.3 X10*3/uL (0.1-1.2); Monocytes Percent Auto 5.5 % (2-11); Neutrophils Absolute Auto 3.5 x10*3/uL (2.0-8.3); Neutrophils Percent Auto 68.7 % (45-73); Platelet Count 113 X10*3/uL (160-400); Red Blood Count 4.49 X10*6/uL (4.60-5.80); Red Cell Distribution Width 12.5 % (11.0-16.0); White Blood Count 5.1 X10*3/uL (4.8-10.8)
[2022-12-08 13:30] LABS: Erythrocyte Sedimentation Rate 5 MM/HR (0-15)
[2022-12-08 13:33] LABS: Alanine Aminotransferase 15 U/L (0-40); Aspartate Amino Transferase 20 U/L (5-37); C Reactive Protein 0.12 mg/dL (< or = 0.50); Estimated Glomerular Filt Rate 29; Prostate Specific Antigen 0.13 ng/mL (<0.05-4.0)
== END 2022-12-08 11:46 | disposition home or self-care (01) ==
LOC: HO.LAB 11:45
PROVIDERS: Nurse Practitioner Family; PCP Family Medicine; Visit Provider Nurse Practitioner Family
DX: N40.0 Benign prostatic hyperplasia without lower urinary tract symptoms (principal); L40.50 Arthropathic psoriasis, unspecified; Z79.899 Other long term (current) drug therapy
CPT/HCPCS: 36415; 82565; 84153; 84450; 84460; 85025; 85652; 86140

== ENCOUNTER 2022-12-11 13:49 | Outpatient (REF) | payer MEDICAID, SELFPAY ==
--- NOTE | ~2022-12-11 | US_ITS ---
EXAMINATION: US RETROPERITONEAL LIMITED (RENAL ONLY) CLINICAL INFORMATION: Calculus of kidney. COMPARISON: CT abdomen pelvis 06/04/2020. Ultrasound renal 01/25/2020. TECHNIQUE: Real-time imaging of the kidneys. FINDINGS: RIGHT KIDNEY: 9.6 x 5.0 x 5.9 cm (SAG x AP x TRV). The kidney is slightly small but parenchymal thickness appears normal. No hydronephrosis. 1.0 cm simple lower pole cyst. No follow-up imaging is recommended. 4 mm nonobstructing calculus in the mid to upper kidney. 2 mm nonobstructing calculus in the mid to upper kidney. 2 mm nonobstructing calculus in the mid kidney. LEFT KIDNEY: 5.5 x 2.2 x 2.6 cm (SAG x AP x TRV). Atrophic kidney. No focal parenchymal lesions or hydronephrosis. 2 mm nonobstructing calculus in the mid kidney. US/US renal BI IMPRESSION: Atrophic left kidney and small right kidney (but with normal parenchymal thickness). Multiple bilateral nonobstructing renal calculi. Overall appearance unchanged compared to 06/04/2020.
== END 2022-12-11 13:50 | disposition home or self-care (01) ==
LOC: HO.US 13:49
PROVIDERS: PCP Family Medicine; Visit Provider Nurse Practitioner Family
DX: N20.0 Calculus of kidney (principal)
CPT/HCPCS: 76775

== ENCOUNTER → 2023-01-07 08:11 | Outpatient (BNVA) | payer MEDICAID, SELFPAY | PROVIDERS: PCP Family Medicine; Visit Provider Nurse Practitioner Family | DX: L40.50 Arthropathic psoriasis, unspecified (principal); M25.512 Pain in left shoulder; Z79.899 Other long term (current) drug therapy | CPT/HCPCS: 99212 ==

== ENCOUNTER 2023-02-08 09:12 | Emergency (ER) | payer MEDICAID, SELFPAY ==
--- NOTE | ~2023-02-08 | CT_ITS ---
EXAMINATION: CT HEAD WITHOUT CONTRAST CLINICAL INFORMATION: Seizure. COMPARISON: Most recent MR brain dated 11/14/2022. TECHNIQUE: Contiguous axial imaging was performed from the skull base to vertex without intravenous administration of contrast. This CT examination was performed using dose optimization techniques as appropriate, variously including the following: *Automated exposure control *Adjustment of mA and/or kV according to patient size (this includes techniques or standardized protocols for targeted exams where dose is matched to indication/reason for exam; i.e. extremities or head) *Use of iterative reconstruction technique DLP: 576 mGy-cm. FINDINGS: No acute intracranial hemorrhage. No mass effect or midline shift. No parenchymal lesion. Hypoattenuation of the periventricular white matter, unchanged and consistent with chronic microvascular ischemic disease. The clayton-white differentiation is maintained. No extra-axial fluid collection. The ventricles and sulci are unremarkable. The basal cisterns are patent. The calvarium is intact. The visualized paranasal sinuses and mastoid air cells are clear. CT/CT head/brain wo IV con IMPRESSION: 1. No acute intracranial hemorrhage or mass effect. 2. Chronic microvascular ischemic disease, unchanged.
--- NOTE | ~2023-02-08 | XR_ITS ---
EXAMINATION: XR CHEST CLINICAL INFORMATION: Seizure. COMPARISON: Most recent chest CT dated 11/27/2020. TECHNIQUE: Frontal view of the chest was obtained. FINDINGS: The lungs are clear. The cardiomediastinal silhouette is normal in size. There is no pleural effusion or pneumothorax. No acute osseous abnormality. XR/XR chest 1V IMPRESSION: No acute cardiopulmonary findings.
[2023-02-08 09:21] VITALS: BP 151/90; BP 168/90; PULSE 100; PULSE 79; RESP 18; TEMP 37.1; O2SAT 100; O2SAT 96; BMI 19.2
--- NOTE | 2023-02-08 09:38 | ECG_ITS ---
Test Reason : SEIZURE Blood Pressure : / mmHG Vent. Rate : 074 BPM Atrial Rate : 074 BPM P-R Int : 180 ms QRS Dur : 074 ms QT Int : 362 ms P-R-T Axes : 064 -43 025 degrees QTc Int : 401 ms Normal sinus rhythm Left axis deviation cannot exclude old Inferior infarct , age undetermined Abnormal ECG When compared with ECG of 07-MAR-2018 16:09, No significant changes seen Referred By: Lucho Gallagher Electronically Signed By:MARLENY FUENTES
--- NOTE | 2023-02-08 09:40 | ED.SEIZURE ---
HPI - Seizure General Chief Complaint: Seizure Stated Complaint: SEIZURE Time Seen by Provider: 02/08/23 09:22 Source: patient and EMS Mode of arrival: EMS Limitations: no limitations History of Present Illness HPI Narrative: 57-year-old male came in by ambulance for evaluation for possible seizure. Girlfriend called EMS for possible seizure, patient bit his tongue, no urinary incontinence, patient emerged department is awake do not know why he is here today. Patient declined using any drugs, no alcohol consumption, no headache, no CP, no SOB, no abdominal pain. Place: Home Related Data Home Medications Medication Instructions Recorded Confirmed dolutegravir 50 mg tablet (Tivicay) 50 mg PO DAILY 07/19/20 08/13/22 buprenorphine 8 mg-naloxone 2 mg 1 strip sublingual BID 01/25/21 08/13/22 sublingual film (Suboxone) darunavir 800 mg-cobicistat 150 mg 1 tab PO BEDTIME 11/25/21 08/13/22 tablet (Prezcobix) naloxone 4 mg/actuation nasal 1 spray intranasal PRN 11/25/21 08/13/22 spray (Narcan) Previous Rx's Medication Instructions Recorded adalimumab 40 mg/0.4 mL 40 mg (0.4 mL) subcut Q2W #2 ea 01/07/23 subcutaneous syringe kit (Humira(CF)) levetiracetam 500 mg tablet 500 mg PO Q12H #60 tabs 02/08/23 (Keppra) Allergies Allergy/AdvReac Type Severity Reaction Status Date / Time bictegravir [BICTEGRAVIR] AdvReac Unknown Fatigued Verified 02/08/23 09:32 dapsone [DAPSONE] AdvReac Unknown G6PD Verified 02/08/23 09:32 DEFICIENT methotrexate [METHOTREXATE] AdvReac Unknown HIGH Verified 02/08/23 09:32 LFT's, Elevated LFTs Sulfa (Sulfonamide AdvReac Unknown G6PD Verified 02/08/23 09:32 Antibiotics) DEFICIENT [SULFA (SULFONAMIDE ANTIBIOTICS)] sulfamethoxazole AdvReac Unknown G6PD Verified 02/08/23 09:32 [From BACTRIM] Deficient, elevated LFTs trimethoprim [From BACTRIM] AdvReac Unknown G6PD Verified 02/08/23 09:32 DEFICIENT emtricitabine [From Biktarvy] AdvReac Fatigued Verified 02/08/23 09:32 tenofovir [From Biktarvy] AdvReac Fatigued Verified 02/08/23 09:32 Review of Systems Review of Systems: All other systems are reviewed and are negative Constitutional: Reports as per HPI and Reports no additional constitutional complaints Eyes: Reports as per HPI and Reports no additional eye complaints Reports system reviewed and no additional complaints, except as documented Cardiovascular: Reports as per HPI and Reports no additional cardiovascular complaints Respiratory: Reports as per HPI and Reports no additional respiratory complaints Gastrointestinal: Reports as per HPI and Reports no additional gastrointestinal complaints Genitourinary: Reports no additional female genitourinary complaints Musculoskeletal: Reports no additional musculoskeletal complaints Skin/Breast: Reports system reviewed and no additional complaints, except as docu Psychiatric: Reports no additional psychiatric complaints Endocrine: Reports no additional endocrine complaints Hematologic/Lymphatic: Reports no additional hematologic/lymphatic complaints Allergic/Immunologic: Reports no additional allergic/immunologic complaints Reports system reviewed and no additional complaints, except as documented and Reports Abnormal speech present PMFSH Past Medical History Medical History Arthritis Chronic hepatitis B Chronic hepatitis C Chronic kidney disease, stage 3 Chronic, continuous use of opioids Compensated HCV cirrhosis Epigastric pain Failure to thrive G6PD deficiency History of COVID-19 HIV (human immunodeficiency virus infection) Methadone maintenance therapy patient Poor dentition Psoriatic arthritis Unintentional weight loss Venous stasis of both lower extremities Surgical History History of removal of cyst No significant past surgical history Social History Social History Alcohol intake: never Patient Tobacco Use Status: Former Tobacco user Quit Date: 1999 Smoked in Last 30 Days: No Use of substances other than those prescribed or required for medical reasons: Yes Substance Use Type: Marijuana Advance Directives: No Advance Directives Information Provided: Yes Physical Exam Vital Signs: Vital Signs: Last Vital Signs Temp 98.8 F 02/08/23 09:21 Pulse 80 02/08/23 10:33 Resp 14 02/08/23 10:33 BP 132/90 H 02/08/23 10:33 Pulse Ox 98 02/08/23 10:33 O2 Del Method Room Air 02/08/23 10:33 BMI result Body Mass Index 19.2 Vital signs have been reviewed as appeared to be correct. Blood pressure normal. Heart rate normal. Respiration rate normal. Temperature normal. Oxygen saturation normal. Appearance: Alert. Oriented X3. No acute distress. Head: Normal external exam. Normocephalic. Atraumatic. No Francisco signs noted. No raccoon eyes noted, a small tongue bite on the right side of the tongue, no active bleeding Eyes: PERRLA. EOMI. Conjunctiva and sclera normal. Eyelids normal. ENT: TM's Normal. Pharynx normal. Uvula midline. Moist mucous membranes. No trismus noted. No drooling noted. No muffled voice noted. Neck: Normal inspection. Neck supple. FROM. No adenopathy. Thyroid Normal. No meningeal signs. No neck mass noted. CVS: Normal heart rate and rhythm. Heart sound normal. No murmurs noted. Pulses normal throughout. Respiratory: No respiratory distress. Painless inspiration. Breath sounds normal. No wheezes/rales/rhonchi noted. Chest nontender. No accessory muscle usage noted or decreased air movement noted. Abdomen: Soft and nontender. Bowel sounds normal in all 4 quadrants. No distention noted. No organomegaly noted. No visible injury noted. Back: No CVA tenderness. Full range of motion noted. Skin: Skin warm and dry. Normal skin color. Normal skin turgor. No rashes/lesions/lacerations noted. Extremities: No lower extremity edema. Extremities exhibit normal range of motion. Extremities nontender. Neuro: Oriented X 3. Cranial nerve exam: II-XII are grossly intact No motor deficit. No sensory deficit. Reflexes normal. Course Course Course Narrative: Question of seizure and tongue bite, labs unremarkable, SCDs only workable will start the patient on given a 500 mg twice a day to control seizure and follow-up with neurologist as an outpatient. Medications Administered Discontinued Medications Generic Name Dose Route Start Last Admin Trade Name Freq PRN Reason Stop Dose Admin Levetiracetam 1,000 mg in 100 mls @ 400 mls/hr 02/08/23 10:00 02/08/23 10:33 Keppra IV 02/08/23 10:14 Infused ONCE ONE Infusion Medical Decision Making Differential Diagnosis Differential Diagnoses: The differential diagnosis associated with the presentation includes (Seizure, electrolyte abnormalities, severe anemia, substance abuse, dehydration.) Admission/Observation Consideration of admission/observation: Escalation of care including admission/observation considered Lab Data MDM Lab Attestation statement: I reviewed the patient's lab results. 02/08/23 09:50 02/08/23 09:50 Labs: Lab Results 02/08/23 02/08/23 02/08/23 Range/Units 09:50 09:50 09:50 WBC 4.6 L (4.8-10.8) X10*3/uL RBC 4.58 L (4.60-5.80) X10*6/uL Hgb 13.9 L (14.0-18.0) g/dl Hct 41.0 L (42.0-52.0) % MCV 89.5 (80.0-98.0) fL MCH 30.3 (27.0-33.0) pg MCHC 33.9 (31.0-36.0) g/dl RDW 12.4 (11.0-16.0) % Plt Count 97 L (160-400) X10*3/uL MPV 12.1 (9.4-12.4) fL Immature Gran % (Auto) 0.2 (0.0-0.4) % Neut % (Auto) 72.8 (45-73) % Lymph % (Auto) 19.3 L (20-40) % [place] % (Auto) 4.4 (2-11) % Eos % (Auto) 2.9 (0-4) % Baso % (Auto) 0.4 (0-2) % Lymph # (Auto) 0.9 L (1.2-4.9) X10*3/uL [place] # (Auto) 0.2 (0.1-1.2) X10*3/uL Eos # (Auto) 0.1 (0.0-0.4) X10*3/uL Baso # (Auto) 0.0 (0.0-0.2) X10*3/uL Abs Immat Gran (auto) 0.01 (0.00-0.03) X10*3/uL Absolute Neuts (auto) 3.3 (2.0-8.3) x10*3/uL Absolute Nucleated RBC 0.000 (0.0-0.012) X10*3/uL Nucleated RBC % (auto) 0.0 (0.0-0.2) /100WBC Smear Tech's Comments VERIFIED Sodium 143 (135-145) mmol/L Potassium 3.8 (3.3-5.1) mmol/L Chloride 108 (96-108) mmol/L Carbon Dioxide 29 (22-29) mmol/L Anion Gap 10 L (12-20) BUN 25 H (9-16) mg/dL Creatinine 1.91 H (0.5-1.4) mg/dL Estim Creat Clear Calc 30.6 Estimated GFR 36 Random Glucose 127 H (60-115) mg/dL Calcium 9.3 (8.4-10.2) mg/dL Total Bilirubin 1.1 H (0.0-1.0) mg/dL Direct Bilirubin 0.3 (0.0-0.5) mg/dL AST 16 (5-37) U/L ALT 9 (0-40) U/L Alkaline Phosphatase 85 (39-117) U/L Troponin I High Sens 13.4 (<3.5-35.0) ng/L Total Protein 6.6 (6.5-8.0) g/dL Albumin 3.8 (3.5-5.0) g/dL Lipase 43 (8-78) U/L Urine Color Urine Appearance Urine pH (5.0-9.0) Ur Specific [place] (1.005-1.025) Urine Protein (Neg-Trace) mg/dL Urine Glucose (UA) (Negative) mg/dL Urine Ketones (Negative) mg/dL Urine Blood (Negative) Urine Nitrite (Negative) Ur Leukocyte Esterase (Negative) Urine RBC (0-2) /HPF Urine WBC (0-5) /HPF Ur Squamous Epith Cells (0-2) /HPF Urine Bacteria (None Seen) Hyaline Casts (0-2) /LPF Urine Opiates Screen (Not Detect) Urine Fentanyl Screen (Not Detect) Ur Barbiturates Screen (Not Detect) Ur Phencyclidine Scrn (Not Detect) Ur Amphetamines Screen (Not Detect) U Benzodiazepines Scrn (Not Detect) Urine Cocaine Screen (Not Detect) U Marijuana (THC) Screen (Not Detect) Ethyl Alcohol mg/dL 02/08/23 02/08/23 02/08/23 Range/Units 09:50 10:44 10:44 WBC (4.8-10.8) X10*3/uL RBC (4.60-5.80) X10*6/uL Hgb (14.0-18.0) g/dl Hct (42.0-52.0) % MCV (80.0-98.0) fL MCH (27.0-33.0) pg MCHC (31.0-36.0) g/dl RDW (11.0-16.0) % Plt Count (160-400) X10*3/uL MPV (9.4-12.4) fL Immature Gran % (Auto) (0.0-0.4) % Neut % (Auto) (45-73) % Lymph % (Auto) (20-40) % [place] % (Auto) (2-11) % Eos % (Auto) (0-4) % Baso % (Auto) (0-2) % Lymph # (Auto) (1.2-4.9) X10*3/uL [place] # (Auto) (0.1-1.2) X10*3/uL Eos # (Auto) (0.0-0.4) X10*3/uL Baso # (Auto) (0.0-0.2) X10*3/uL Abs Immat Gran (auto) (0.00-0.03) X10*3/uL Absolute Neuts (auto) (2.0-8.3) x10*3/uL Absolute Nucleated RBC (0.0-0.012) X10*3/uL Nucleated RBC % (auto) (0.0-0.2) /100WBC Smear Tech's Comments Sodium (135-145) mmol/L Potassium (3.3-5.1) mmol/L Chloride (96-108) mmol/L Carbon Dioxide (22-29) mmol/L Anion Gap (12-20) BUN (9-16) mg/dL Creatinine (0.5-1.4) mg/dL Estim Creat Clear Calc Estimated GFR Random Glucose (60-115) mg/dL Calcium (8.4-10.2) mg/dL Total Bilirubin (0.0-1.0) mg/dL Direct Bilirubin (0.0-0.5) mg/dL AST (5-37) U/L ALT (0-40) U/L Alkaline Phosphatase (39-117) U/L Troponin I High Sens (<3.5-35.0) ng/L Total Protein (6.5-8.0) g/dL Albumin (3.5-5.0) g/dL Lipase (8-78) U/L Urine Color Yellow Urine Appearance Clear Urine pH 6.5 (5.0-9.0) Ur Specific [place] 1.010 (1.005-1.025) Urine Protein 30 (1+) H (Neg-Trace) mg/dL Urine Glucose (UA) 100 H (Negative) mg/dL Urine Ketones Negative (Negative) mg/dL Urine Blood Moderate (2+) H (Negative) Urine Nitrite Negative (Negative) Ur Leukocyte Esterase Negative (Negative) Urine RBC 11-20 H (0-2) /HPF Urine WBC 0-5 (0-5) /HPF Ur Squamous Epith Cells 0-2 (0-2) /HPF Urine Bacteria Trace (None Seen) Hyaline Casts 0-2 (0-2) /LPF Urine Opiates Screen Not Detected (Not Detect) Urine Fentanyl Screen Not Detected (Not Detect) Ur Barbiturates Screen Not Detected (Not Detect) Ur Phencyclidine Scrn Not Detected (Not Detect) Ur Amphetamines Screen Not Detected (Not Detect) U Benzodiazepines Scrn Not Detected (Not Detect) Urine Cocaine Screen Not Detected (Not Detect) U Marijuana (THC) Screen POSITIVE H (Not Detect) Ethyl Alcohol < 10 mg/dL Independent Interpretation I performed an independent interpretation of an: EKG (Normal sinus rhythm at 74 beats per minutes, left axis deviation, normal intervals, no ST-T changes.), Plain X-Ray (Chest: No acute intrathoracic pathology.) and CT Scan (Head: No acute intracranial pathology.) Radiology Impression Discussion of test interpretation with radiology: I have reviewed the radiologist's reading. Discharge Plan Discharge Clinical Impression: Seizure Patient Disposition: Home, Self-Care Instructions: Epilepsy in Older Adults (ED) Prescriptions: New levetiracetam [Keppra] 500 mg tablet 500 mg PO Q12H Qty: 60 0RF No Action buprenorphine-naloxone [Suboxone] 8-2 mg film 1 strip sublingual BID Tivicay 50 mg tablet 50 mg PO DAILY Prezcobix 800-150 mg-mg tablet 1 tab PO BEDTIME naloxone [Narcan] 4 mg/actuation spray,non-aerosol 1 spray intranasal PRN Humira(CF) 40 mg/0.4 mL syringe kit 40 mg subcut Q2W Qty: 2 2RF Referrals: Gladis Jiménez MD [Physician] - Michell Mallory MD [Primary Care Provider] -
[2023-02-08 09:55] LABS: Basophils Percent Auto 0.4 % (0-2); Imm Gran Abs Auto 0.01 X10*3/uL (0.00-0.03); Imm Gran Pct Auto 0.2 % (0.0-0.4); Mean Corpuscular Hemoglobin 30.3 pg (27.0-33.0); PLT CLUMP 1; SCAN SMEAR FLAG 1
[2023-02-08 09:57] LABS: Eosinophils Absolute Auto 0.1 X10*3/uL (0.0-0.4); Eosinophils Percent Auto 2.9 % (0-4); Hemoglobin 13.9 g/dl (14.0-18.0); Lymphocytes Absolute Auto 0.9 X10*3/uL (1.2-4.9); Lymphocytes Percent Auto 19.3 % (20-40); Mean Corpuscular HGB Conc 33.9 g/dl (31.0-36.0); Mean Corpuscular Volume 89.5 fL (80.0-98.0); Mean Platelet Volume 12.1 fL (9.4-12.4); Monocytes Absolute Auto 0.2 X10*3/uL (0.1-1.2); Monocytes Percent Auto 4.4 % (2-11); Neutrophils Absolute Auto 3.3 x10*3/uL (2.0-8.3); Neutrophils Percent Auto 72.8 % (45-73); Red Blood Count 4.58 X10*6/uL (4.60-5.80); Red Cell Distribution Width 12.4 % (11.0-16.0)
[2023-02-08 10:01] LABS: Platelet Count 97 X10*3/uL (160-400); White Blood Count 4.6 X10*3/uL (4.8-10.8)
[2023-02-08] MEDS: levETIRAcetam in NaCl (iso-os) 1,000 MG/100 ML PIGGYBACK 400 MG IV (10:05)
[2023-02-08 10:07] LABS: Ethanol < 10 mg/dL
[2023-02-08 10:09] LABS: Alanine Aminotransferase 9 U/L (0-40); Albumin Level 3.8 g/dL (3.5-5.0); Alkaline Phosphatase 85 U/L (39-117); Anion Gap 10 (12-20); Aspartate Amino Transferase 16 U/L (5-37); Bilirubin Direct 0.3 mg/dL (0.0-0.5); Bilirubin Total 1.1 mg/dL (0.0-1.0); Blood Urea Nitrogen 25 mg/dL (9-16); Calcium 9.3 mg/dL (8.4-10.2); Carbon Dioxide 29 mmol/L (22-29); Chloride 108 mmol/L (96-108); Creatinine Clr Calc Pharmacy 30.6; Estimated Glomerular Filt Rate 36; Glucose Random 127 mg/dL (60-115); Lipase 43 U/L (8-78); Potassium 3.8 mmol/L (3.3-5.1); Sodium 143 mmol/L (135-145); Total Protein 6.6 g/dL (6.5-8.0)
[2023-02-08 10:13] LABS: MANUAL DIFF FLAG SCAN; SLIDE REVIEW VERIFIED
[2023-02-08 10:16] LABS: Troponin-I High Sensitivity 13.4 ng/L (<3.5-35.0)
[2023-02-08 10:33] VITALS: BP 132/90; PULSE 80; RESP 14; O2SAT 98
[2023-02-08 10:56] LABS: Appearance Urine Clear; Color Urine Yellow; Glucose Urine UA 100 mg/dL (Negative); Leukocyte Esterase Urine Negative (Negative); Nitrite Urine Negative (Negative); PH 6.5 (5.0-9.0); UMIC TRIGGER UACC YES; Urine Blood Moderate (2+) (Negative); Urine Ketones Negative (Negative); Urine Protein 30 (1+) mg/dL (Neg-Trace)
[2023-02-08 10:58] LABS: Bacteria Urine Trace (None Seen); Hyaline Casts Urine 0-2 /LPF (0-2); Squamous Epithelial Cell Urine 0-2 /HPF (0-2); WBC Urine 0-5 /HPF (0-5)
[2023-02-08 11:06] LABS: Amphetamine Screen Urine Not Detected (Not Detect); Barbiturates, Urine Not Detected (Not Detect); Benzodiazepines Screen Urine Not Detected (Not Detect); Cannabinoid Screen Urine POSITIVE (Not Detect); Cocaine Screen Urine Not Detected (Not Detect); Fentanyl, urine Not Detected (Not Detect); Opiate Screen Urine Not Detected (Not Detect); Phencyclidine Screen Urine Not Detected (Not Detect)
== END 2023-02-08 12:41 | disposition home or self-care (01) ==
PROVIDERS: Emergency Provider Emergency Medicine; PCP Family Medicine
DX: R56.9 Unspecified convulsions (principal); R51.9 Headache, unspecified; F12.90 Cannabis use, unspecified, uncomplicated; R94.31 Abnormal electrocardiogram [ECG] [EKG]; Z79.899 Other long term (current) drug therapy
CPT/HCPCS: 36415; 70450; 71045; 80048; 80076; 80307; 81001; 83690; 84484; 85025; 93005; 96365; 96366; 99284; J1953

== ENCOUNTER 2023-04-17 13:25 | Outpatient (AMB) | payer MEDICAID, SELFPAY ==
--- NOTE | 2023-04-17 13:28 | A.OFFVIS_ITS ---
Intake Vital Signs 04/17/23 13:29 Height 5 ft 4 in Weight 105 lb 9.623 oz BMI 18.1 BP 130/80 Blood Pressure Location Rt brachial Position Sitting Pulse 81 Pulse Source Pulse Oximeter Temp 98.6 F Temp Source Skin Pulse Oximetry (%) 96 Intake Visit Reasons: psoriatic arthritis Intake Note: Pt seen today for PsA follow up. C/o pain in hands Lasting Floorworker Required: Yes Lasting Floorworker Name: Latonia [id number] Accompanied by: Self / Same As Patient Allergies bictegravir [BICTEGRAVIR] Adverse Reaction (Unknown, Verified 04/17/23 13:37) Fatigued dapsone [DAPSONE] Adverse Reaction (Unknown, Verified 04/17/23 13:37) G6PD DEFICIENT methotrexate [METHOTREXATE] Adverse Reaction (Unknown, Verified 04/17/23 13:37) HIGH LFT's, Elevated LFTs Sulfa (Sulfonamide Antibiotics) [SULFA (SULFONAMIDE ANTIBIOTICS)] Adverse Reaction (Unknown, Verified 04/17/23 13:37) G6PD DEFICIENT sulfamethoxazole [From BACTRIM] Adverse Reaction (Unknown, Verified 04/17/23 13:37) G6PD Deficient, elevated LFTs trimethoprim [From BACTRIM] Adverse Reaction (Unknown, Verified 04/17/23 13:37) G6PD DEFICIENT emtricitabine [From Biktarvy] Adverse Reaction (Verified 04/17/23 13:37) Fatigued tenofovir [From Biktarvy] Adverse Reaction (Verified 04/17/23 13:37) Fatigued Medication List - Last Reconciled 04/17/23 by Vel Tate MD adalimumab (Humira(CF)) 40 mg (0.4 mL) subcut Q2W buprenorphine-naloxone 8-2 mg (Suboxone) 1 strip sublingual BID darunavir-cobicistat 800-150 mg-mg (Prezcobix) 1 tab PO BEDTIME dolutegravir (Tivicay) 50 mg PO DAILY levetiracetam (Keppra) 500 mg PO Q12H naloxone 4 mg/actuation (Narcan) 1 spray intranasal PRN HPI HPI Comments History of Present Illness Details Patient is a 57yoM with psoriatic arthritis who presents for follow- up. He also has history of HIV on HAART, hepatitis-B and C, pancytopenia, CKD Patient states that he is doing well overall. On Humira every other week. Well tolerated. States that he gets tingling and numbness in his extremities, and this can happen in the morning or at night or in the middle of the day. States that he saw a medication on TV that can help with those symptoms. Does not remember the name of the medication. [facility] Medical History (Updated 04/17/23 @ 14:01 by Vel Tate MD) Arthritis Chronic hepatitis B Chronic hepatitis C Chronic kidney disease, stage 3 Chronic, continuous use of opioids Compensated HCV cirrhosis Epigastric pain Failure to thrive G6PD deficiency History of COVID-19 HIV (human immunodeficiency virus infection) Methadone maintenance therapy patient Poor dentition Psoriatic arthritis Unintentional weight loss Venous stasis of both lower extremities Surgical History History of removal of cyst No significant past surgical history Social History Alcohol intake: never Patient Tobacco Use Status: Former Tobacco user Quit Date: 1999 Substance Use Type: Marijuana Review of Systems Musc Reports numbness and Reports tingling Skin/Breast Denies rash Neuro Reports numbness and Reports tingling Physical Exam Vital Signs: Last Vital Signs Temp 98.6 F 04/17/23 13:29 Pulse 81 04/17/23 13:29 BP 130/80 04/17/23 13:29 Pulse Ox 96 04/17/23 13:29 BMI result Body Mass Index 18.1 Const General: cooperative, healthy appearing and comfortable Nutritional Appearance: thin Orientation/consciousness: patient oriented x3 Limitations: no limitations HEENT Head: Yes normocephalic and Yes atraumatic Mouth: moist mucous membranes Resp Effort & Inspection: normal respiratory effort and able to speak in complete sentences Skin General skin exam: no rashes or lesions noted Neuro General: patient oriented x3 Extrem Other: Chronic deformities of both hands with no active synovitis normal range of motion of both elbows and shoulders Nail pitting of left foot 4th and 5th fingers Assessment & Plan Assessment & Plan (1) Psoriatic arthritis: Comment: MTX Dc due to transaminitis In 2013 he was cleared by ID to start Biologic therapy. Started Arava in 2014 and then Enbrel was added in Aug 2016 because of worsening skin rash. Stopped Enbrel in January 2018 Humira restarted December 2021 with ID clearance effective Code(s): L40.50 - Arthropathic psoriasis, unspecified Plan: This is a 57-year-old male with psoriasis and psoriatic arthritis who presents for follow-up. He also has history of HIV on HAART, hepatitis-B, hepatitis-C, CKD, pancytopenia. Both up regularly with Infectious Disease. Patient is doing well with no active synovitis. No psoriasis on exam. Continue Humira 40 mg every other week Labs before next visit in 4 months (2) High risk medication use: Code(s): Z79.899 - Other jail (current) drug therapy Plan: Continue Humira 40 mg every other week. Continue to follow-up with ID Plan I spent 27 minutes reviewing patient's chart, evaluating patient, ordering diagn ostic workup, counseling patient and documenting in the chart Orders: Orders Comprehensive Met. Panel 4 Months L40.50 - Arthropathic psoriasis, unspecified C Reactive Protein 4 Months L40.50 - Arthropathic psoriasis, unspecified Complete Blood Count Auto Diff 4 Months L40.50 - Arthropathic psoriasis, unspecified Erythrocyte Sedimentation Rate 4 Months L40.50 - Arthropathic psoriasis, unspecified T Spot TB 4 Months Z11.7 - Encounter for testing for latent tuberculosis infection Coding Level of Care Code Est Pt Level 4 (65290) Diagnoses Psoriatic arthritis L40.50 High risk medication use Z79.899
[2023-04-17 13:29] VITALS: BP 130/80; PULSE 81; TEMP 37; O2SAT 96; BMI 18.1
== END 2023-04-17 13:55 | disposition home or self-care (01) ==
PROVIDERS: PCP Family Medicine; Visit Provider Student in an Organized Health Care Education/Training Program
DX: L40.50 Arthropathic psoriasis, unspecified (principal); Z79.899 Other long term (current) drug therapy
CPT/HCPCS: 99214

== ENCOUNTER → 2023-04-17 13:25 | Outpatient (BNVA) | payer MEDICAID, SELFPAY | PROVIDERS: PCP Family Medicine; Visit Provider Student in an Organized Health Care Education/Training Program | DX: L40.50 Arthropathic psoriasis, unspecified (principal); Z79.899 Other long term (current) drug therapy | CPT/HCPCS: 99212 ==

== ENCOUNTER 2023-05-04 14:45 | Outpatient (AMB) | payer MEDICAID, SELFPAY ==
--- NOTE | 2023-05-04 14:58 | MHC.OFFVIS ---
Intake Intake Visit Reasons: follow up/US/labs (set) Intake Note: Patient presents for follow up micro hematuria/nephrolithiasis/ultrasound/labs (imaging 12/11/22) (psa 0.13) Urology Medications: none Blood Thinner: none Firearms Specialist Required: No Accompanied by: Self / Same As Patient Allergies bictegravir [BICTEGRAVIR] Adverse Reaction (Unknown, Verified 05/04/23 23:01) Fatigued dapsone [DAPSONE] Adverse Reaction (Unknown, Verified 05/04/23 23:01) G6PD DEFICIENT methotrexate [METHOTREXATE] Adverse Reaction (Unknown, Verified 05/04/23 23:01) HIGH LFT's, Elevated LFTs Sulfa (Sulfonamide Antibiotics) [SULFA (SULFONAMIDE ANTIBIOTICS)] Adverse Reaction (Unknown, Verified 05/04/23 23:) G6PD DEFICIENT sulfamethoxazole [From BACTRIM] Adverse Reaction (Unknown, Verified 05/04/23 23:01) G6PD Deficient, elevated LFTs trimethoprim [From BACTRIM] Adverse Reaction (Unknown, Verified 05/04/23 23:) G6PD DEFICIENT emtricitabine [From Biktarvy] Adverse Reaction (Verified 05/04/23 23:01) Fatigued tenofovir [From Biktarvy] Adverse Reaction (Verified 05/04/23 23:01) Fatigued Medication List - Last Reconciled 05/04/23 by QUENTIN Keller-JR adalimumab (Humira(CF)) 40 mg (0.4 mL) subcut Q2W buprenorphine-naloxone 8-2 mg (Suboxone) 1 strip sublingual BID darunavir-cobicistat 800-150 mg-mg (Prezcobix) 1 tab PO BEDTIME dolutegravir (Tivicay) 50 mg PO DAILY levetiracetam (Keppra) 500 mg PO Q12H naloxone 4 mg/actuation (Narcan) 1 spray intranasal PRN HPI HPI Comments History of Present Illness Details Joe is a pleasant 57 year old male patient of Dr. Mallory. He has a PMH of HIV, nephropathy, pancytopenia, Hep C, Hep B and Psoriatic Arthritis. Patient presents to the office today for follow-up. Of note, patient was seen approximately 5 months ago as a new patient for history of nephrolithiasis at which a renal ultrasound was ordered for further assessment evaluation. These results reviewed with the patient today. Right kidney is slightly small but parenchymal thickness appears normal. Nohydronephrosis. 1.0 cm simple lower pole cyst. No follow-up imaging is recommended per radiology report. 4 mm nonobstructing calculus in the mid to upper kidney. 2 mm nonobstructing calculus in the mid to upper kidney. 2 mm nonobstructing calculus in the mid kidney. Left kidney noted to be atrophic. No lesions or hydronephrosis noted. 2 mm nonobstructing calculus in the midpole. When asked patient denies any bothersome urinary issues or concerns at this time. He denies urinary urgency, urinary frequency, incontinence, nocturia, hematuria, dysuria, foul smelling urine, changes to urinary stream, fever, falnk pain, and or chills. Recent PSA results reviewed with the patient today. PSA 12/07--0.1. Discussed at length surveillance monitoring verses surgical intervention of nephrolithiasis. Discussed risks and benefits of surveillance monitoring verses further surgical intervention. Discussed at length potential causes for nephrolithiasis. When asked patient reports to be following up with Nephrology regarding atrophic kidney and reports nephrology to be trending BUN and creatinine. He discusses following up with Dr. Richards and reports seeing him just a couple of weeks ago. He otherwise offers no issues or concerns at this time. [facility] Medical History Arthritis Unintentional weight loss Poor dentition Failure to thrive History of COVID-19 Epigastric pain Methadone maintenance therapy patient Venous stasis of both lower extremities Compensated HCV cirrhosis Chronic, continuous use of opioids Psoriatic arthritis Chronic kidney disease, stage 3 Chronic hepatitis B Chronic hepatitis C G6PD deficiency HIV (human immunodeficiency virus infection) Surgical History History of removal of cyst No significant past surgical history Social History Alcohol intake: never Patient Tobacco Use Status: Former Tobacco user Quit Date: 1999 Substance Use Type: Marijuana Review of Systems Const All systems reviewed & are unremarkable except as noted in HPI and below Reports no additional complaints Eyes Reports no additional complaints ENT Reports no additional complaints Card Reports no additional complaints Resp Reports no additional complaints GI Reports no additional complaints Reports as per HPI Musc Reports no additional complaints Neuro Reports no additional complaints Psych Reports no additional complaints Endo Reports no additional complaints Giles/Lymph Reports as per HPI Aller/Immun Reports as per HPI Physical Exam Const General: cooperative, comfortable, no acute distress, well developed, alert and awake Nutritional Appearance: thin Orientation/consciousness: patient oriented x3 Limitations: no limitations HEENT Head: Yes normal to inspection, Yes normocephalic and Yes atraumatic Ears: hearing grossly normal bilaterally Eyes General: appearance normal, both eyes and all related structures Neck Neck: Yes normal visual inspection and Yes trachea midline Chest Chest palpation & inspection: normal inspection of the chest Resp Effort & Inspection: normal respiratory effort and able to speak in complete sentences Cardio Rate: regular rate GI Inspection: Yes normal to inspection General: Yes no CVA tenderness Back/Spine/Pelvis Back: no CVA tenderness Skin General skin exam: no rashes or lesions noted Neuro General: patient oriented x3 Extrem General: Yes normal to inspection Psych Appearance: grossly normal and well kempt Mental Status: mental status grossly normal Speech and movement: Normal speech and movement present and Clear speech present Affect: normal affect Attitude: cooperative Thought process: Normal thought process present Thought content: Normal thought content present Insight: Fair insight present (Psych) Judgement: Fair judgement present (Psych) Results AMB Urinalysis, Automated UA Leukoctes 0 Leoncio/uL Last Edit by GregorioQualisteo Ayana on 05/04/23 15:25 UA Nitrite Last Edit by Factorli Ayana on 05/04/23 15:25 UA Urobilinogen 0.2 mg/dL Last Edit by [employer] on 05/04/23 15:25 UA Protein 15 mg/dL Last Edit by [employer] on 05/04/23 15:25 UA pH 6.5 Last Edit by [employer] on 05/04/23 15:25 UA Blood 10 Huey/uL Last Edit by [employer] on 05/04/23 15:25 UA Specific Chester 1.015 Last Edit by [employer] on 05/04/23 15:25 UA Ketone Negative Last Edit by Factorli [employer] on 05/04/23 15:25 UA Bilirubin 0 mg/dL Last Edit by Factorli Ayana on 05/04/23 15:25 UA Glucose 0 mg/dL Last Edit by Kayleigh Piña on 05/04/23 15:25 Results Reviewed Results Reviewed: Laboratory Last Values Urine pH (Auto) 6.5 05/04/23 15:09 Specific Chester (Auto) 1.015 05/04/23 15:09 Urine Protein (Auto) 15 mg/dL 05/04/23 15:09 Glucose (UA)(Auto) 0 mg/dL 05/04/23 15:09 Urine Ketones (Auto) Negative 05/04/23 15:09 Urine Blood (Auto) 10 Huey/uL 05/04/23 15:09 Urine Bilirubin (Auto) 0 mg/dL 05/04/23 15:09 Urine Urobilinogen (Auto) 0.2 mg/dL 05/04/23 15:09 Leukocyte Esterase (Auto) 0 Leoncio/uL 05/04/23 15:09 Date of Service: 12/11/22 EXAMINATION: US RETROPERITONEAL LIMITED (RENAL ONLY) FINDINGS: RIGHT KIDNEY: 9.6 x 5.0 x 5.9 cm (SAG x AP x TRV). The kidney is slightly small but parenchymal thickness appears normal. No hydronephrosis. 1.0 cm simple lower pole cyst. No follow-up imaging is recommended. 4 mm nonobstructing calculus in the mid to upper kidney. 2 mm nonobstructing calculus in the mid to upper kidney. 2 mm nonobstructing calculus in the mid kidney. LEFT KIDNEY: 5.5 x 2.2 x 2.6 cm (SAG x AP x TRV). Atrophic kidney. No focal parenchymal lesions or hydronephrosis. 2 mm nonobstructing calculus in the mid kidney. US/US renal BI IMPRESSION: Atrophic left kidney and small right kidney (but with normal parenchymal thickness). Multiple bilateral nonobstructing renal calculi. Overall appearance unchanged compared to 06/04/2020. Assessment & Plan Assessment & Plan (1) Nephrolithiasis: Code(s): N20.0 - Calculus of kidney (2) Atrophic kidney: Code(s): N26.1 - Atrophy of kidney (terminal) (3) Renal cyst: Code(s): N28.1 - Cyst of kidney, acquired Plan In office urinalysis results reviewed with the patient today; as noted above. Recent renal imaging results reviewed with the patient today; as noted above. Continue to follow with Nephrology per Nephrology recommendations; patient sees Dr. Richards. Patient denies any bothersome urinary issues or concerns at this time. Discussed at length potential causes of nephrolithiasis Discussed, educated, encouraged on the importance of drinking plenty of water daily. Start vitamin B6 as discussed and prescribed. Discussed adding 1 oz of lemon juice to water daily. Will continue with interval surveillance imaging Will obtain renal ultrasound in 6 months Follow-up in 6 months with imaging to be completed prior; or sooner with any issues, concerns, and or questions. Orders: Orders AMB Urinalysis Automated Today Z13.9 - Encounter for screening, unspecified Medications: New pyridoxine (vitamin B6) 100 mg PO DAILY 90 days 90 tabs 2RF N20.0 - Calculus of kidney Patient Instructions: The patient had an opportunity to ask questions regarding the treatment plan. All questions were answered. Physical exam, labs, and imaging were discussed and reviewed in detail. As well as risks, benefits, and discussion of treatment choices. No major barriers to understanding were identified. The patient expressed understanding and agreement with the above treatment plan. The patient was made aware they should contact our office by phone for worsening of their current condition, the appearance of new symptoms, or with any questions or concerns. Compliance is encouraged with any medications and follow up testing that is ordered. It is a privilege to be allowed the opportunity to participate in? your urological care.? Again, if you have any questions or concerns If you have any questions or concerns please do not hesitate to contact me. The office is [phone]. This note is constructed using voice recognition software. While every effort has been made to ensure accuracy refrigerating engineer head errors may have been included. Yours sincerely, EVERARDO Keller Coding Level of Care Code Est Pt Level 4 (71909) Diagnoses Nephrolithiasis N20.0 Atrophic kidney N26.1 Renal cyst N28.1
== END 2023-05-04 15:41 | disposition home or self-care (01) ==
PROVIDERS: PCP Family Medicine; Visit Provider Nurse Practitioner Family
DX: N20.0 Calculus of kidney (principal); N26.1 Atrophy of kidney (terminal); N28.1 Cyst of kidney, acquired
CPT/HCPCS: 99214

== ENCOUNTER → 2023-05-04 14:45 | Outpatient (BNVA) | payer MEDICAID, SELFPAY | PROVIDERS: PCP Family Medicine; Visit Provider Nurse Practitioner Family | DX: N20.0 Calculus of kidney (principal); N26.1 Atrophy of kidney (terminal); N28.1 Cyst of kidney, acquired | CPT/HCPCS: 81003; 99212 ==

== ENCOUNTER 2023-05-29 10:20 | Outpatient (REF) | payer MEDICAID, SELFPAY ==
[2023-05-29 11:43] LABS: MANUAL DIFF FLAG NO
[2023-05-29 11:46] LABS: Appearance Urine Clear; Color Urine Yellow; Glucose Urine UA Negative (Negative); Leukocyte Esterase Urine Negative (Negative); Nitrite Urine Negative (Negative); PH 5.5 (5.0-9.0); UMIC TRIGGER UA YES; Urine Blood Trace (Negative); Urine Ketones Negative (Negative); Urine Protein Trace mg/dL (Neg-Trace)
[2023-05-29 11:51] LABS: Bacteria Urine None Seen (None Seen); Hyaline Casts Urine 0-2 /LPF (0-2); RBC Urine 0-2 /HPF (0-2); Squamous Epithelial Cell Urine 0-2 /HPF (0-2); WBC Urine 0-5 /HPF (0-5)
[2023-05-29 12:07] LABS: Basophils Percent Auto 0.4 % (0-2); Eosinophils Absolute Auto 0.2 X10*3/uL (0.0-0.4); Eosinophils Percent Auto 3.1 % (0-4); Hematocrit 43.7 % (42.0-52.0); Hemoglobin 14.6 g/dl (14.0-18.0); Imm Gran Abs Auto 0.02 X10*3/uL (0.00-0.03); Imm Gran Pct Auto 0.4 % (0.0-0.4); Lymphocytes Absolute Auto 1.1 X10*3/uL (1.2-4.9); Lymphocytes Percent Auto 21.9 % (20-40); Mean Corpuscular HGB Conc 33.4 g/dl (31.0-36.0); Mean Corpuscular Hemoglobin 30.4 pg (27.0-33.0); Mean Corpuscular Volume 90.9 fL (80.0-98.0); Mean Platelet Volume 12.3 fL (9.4-12.4); Monocytes Absolute Auto 0.3 X10*3/uL (0.1-1.2); Monocytes Percent Auto 5.4 % (2-11); Neutrophils Absolute Auto 3.6 x10*3/uL (2.0-8.3); Neutrophils Percent Auto 68.8 % (45-73); Platelet Count 137 X10*3/uL (160-400); Red Blood Count 4.81 X10*6/uL (4.60-5.80); Red Cell Distribution Width 12.3 % (11.0-16.0); White Blood Count 5.2 X10*3/uL (4.8-10.8)
[2023-05-29 12:44] LABS: Cholesterol 192 mg/dL (<200); HDL Cholesterol 56 mg/dL (>40); LDL Cholesterol Calculated 125 mg/dL (<100); Triglycerides 58 mg/dL (<150)
[2023-05-29 12:50] LABS: Alanine Aminotransferase 19 U/L (0-40); Albumin Level 4.5 g/dL (3.5-5.0); Alkaline Phosphatase 81 U/L (39-117); Anion Gap 14 (12-20); Aspartate Amino Transferase 26 U/L (5-37); Bilirubin Total 1.1 mg/dL (0.0-1.0); Blood Urea Nitrogen 27 mg/dL (9-16); Calcium 9.8 mg/dL (8.4-10.2); Carbon Dioxide 28 mmol/L (22-29); Chloride 107 mmol/L (96-108); Estimated Glomerular Filt Rate 36; Glucose Random 108 mg/dL (60-115); Potassium 3.8 mmol/L (3.3-5.1); Sodium 145 mmol/L (135-145); Total Protein 7.6 g/dL (6.5-8.0)
[2023-05-29 13:12] LABS: Syphilis Screen Nonreactive (Nonreactive)
[2023-05-29 14:57] LABS: Reflex LDLD? No
[2023-06-01 01:14] LABS: TS Negative Control Passed; TS Panel A 0; TS Panel B 0; TS Positive Control Passed; TSpotTB Negative (Negative)
[2023-06-01 07:03] LABS: Absolute CD3 Count 752 cells/uL (840-3060); Absolute CD4 Count 279 cells/uL (490-1740); Absolute CD8 Count 467 cells/uL (180-1170); Absolute Lymphocytes 1078 cells/uL (850-3900); Percent CD3 Cells 70 % (57-85); Percent CD4 Cells 26 % (30-61); Percent CD8 Cells 43 % (12-42)
[2023-06-01 19:24] LABS: HIV RNA PCR Qn Copies NOT DETECTED copies/mL (NOT DETECTED); HIV RNA PCR Qn Log Copies NOT DETECTED (NOT DETECTED)
[2023-06-02 17:58] LABS: HCV Log PCR <1.18 NOT DETECTED Log IU/mL (NOT DETECTED); HepC Viral Load <15 NOT DETECTED IU/mL (NOT DETECTED)
== END 2023-05-29 10:21 | disposition home or self-care (01) ==
LOC: HO.HHCL 10:20
PROVIDERS: Visit Provider Internal Medicine
DX: B20 Human immunodeficiency virus [HIV] disease (principal)
CPT/HCPCS: 36415; 80053; 80061; 81001; 85025; 86359; 86360; 86481; 86780; 87522; 87536

== ENCOUNTER 2023-07-14 10:20 | Outpatient (REF) | payer MEDICAID, SELFPAY ==
[2023-07-14 11:07] LABS: MANUAL DIFF FLAG NO
[2023-07-14 11:18] LABS: Appearance Urine Clear; Color Urine Yellow; Glucose Urine UA Negative (Negative); Leukocyte Esterase Urine Negative (Negative); Nitrite Urine Negative (Negative); PH 6.5 (5.0-9.0); Specific Gravity - Urine 1.015 (1.005-1.025); UMIC TRIGGER UA YES; Urine Blood Trace (Negative); Urine Ketones Negative (Negative); Urine Protein 30 (1+) mg/dL (Neg-Trace)
[2023-07-14 11:29] LABS: Estimated Average Glucose 80 mg/dL; Hemoglobin A1c % 4.4 % (<6.0)
[2023-07-14 11:30] LABS: Bacteria Urine None Seen (None Seen); Hyaline Casts Urine 0-2 /LPF (0-2); RBC Urine 0-2 /HPF (0-2); Squamous Epithelial Cell Urine 0-2 /HPF (0-2); WBC Urine 0-5 /HPF (0-5)
[2023-07-14 11:35] LABS: Basophils Percent Auto 0.6 % (0-2); Eosinophils Absolute Auto 0.2 X10*3/uL (0.0-0.4); Eosinophils Percent Auto 4.2 % (0-4); Hematocrit 41.3 % (42.0-52.0); Hemoglobin 14.2 g/dl (14.0-18.0); Imm Gran Abs Auto 0.02 X10*3/uL (0.00-0.03); Imm Gran Pct Auto 0.4 % (0.0-0.4); Lymphocytes Absolute Auto 1.4 X10*3/uL (1.2-4.9); Lymphocytes Percent Auto 27.1 % (20-40); Mean Corpuscular HGB Conc 34.4 g/dl (31.0-36.0); Mean Corpuscular Hemoglobin 30.8 pg (27.0-33.0); Mean Corpuscular Volume 89.6 fL (80.0-98.0); Mean Platelet Volume 12.6 fL (9.4-12.4); Monocytes Absolute Auto 0.3 X10*3/uL (0.1-1.2); Neutrophils Absolute Auto 3.2 x10*3/uL (2.0-8.3); Neutrophils Percent Auto 61.7 % (45-73); Platelet Count 125 X10*3/uL (160-400); Red Blood Count 4.61 X10*6/uL (4.60-5.80); Red Cell Distribution Width 12.2 % (11.0-16.0); White Blood Count 5.2 X10*3/uL (4.8-10.8)
[2023-07-14 12:03] LABS: Parathyroid Hormone Intact 133.5 pg/mL (8.7-77.1)
[2023-07-14 12:09] LABS: Anion Gap 12 (12-20); Blood Urea Nitrogen 24 mg/dL (9-16); Calcium 9.4 mg/dL (8.4-10.2); Carbon Dioxide 29 mmol/L (22-29); Chloride 107 mmol/L (96-108); Estimated Glomerular Filt Rate 34; Iron 49 mcg/dL (45-160); Percent Iron Saturation 19 % (15-50); Sodium 144 mmol/L (135-145); Total Iron Binding Capacity 258 mcg/dL (228-428); Unsaturated Iron Binding 209 ug/dL
[2023-07-14 12:29] LABS: TSH reflex Free T4 2.25 uIU/mL (0.32-4.0)
[2023-07-14 12:39] LABS: Creatinine Urine 81.12 mg/dL; Microalbum/Creatinine Ratio Ur 44.3 ug/mg cr (<30); Protein/Creatinine Ratio, Ur 0.26 (<0.2); Total Protein Urine Random 21 mg/dL (<12)
[2023-07-14 12:58] LABS: Uric Acid 5.7 mg/dL (3.4-7.0)
[2023-07-15 18:14] LABS: Calcium, Ionized 5.1 mg/dL (4.7-5.5)
[2023-07-18 16:28] LABS: VITAMIN D (1,25 OH) D3 36 pg/mL; Vit D (1,25-Dihydroxy) Total 36 pg/mL (18-72); Vitamin D (1,25 OH) D2 <8 pg/mL
== END 2023-07-14 10:21 | disposition home or self-care (01) ==
LOC: HO.HHCL 10:20
PROVIDERS: Visit Provider Internal Medicine Nephrology
DX: N18.32 Chronic kidney disease, stage 3b (principal)
CPT/HCPCS: 36415; 80051; 81001; 82043; 82306; 82310; 82330; 82565; 82570; 82652; 83036; 83540; 83970; 84156; 84443; 84520; 84550; 85025

== ENCOUNTER 2023-08-18 14:28 | Outpatient (REF) | payer MEDICAID, SELFPAY ==
[2023-08-18 16:14] LABS: MANUAL DIFF FLAG NO
[2023-08-18 16:18] LABS: Basophils Percent Auto 0.5 % (0-2); Eosinophils Absolute Auto 0.1 X10*3/uL (0.0-0.4); Eosinophils Percent Auto 1.7 % (0-4); Hematocrit 43.1 % (42.0-52.0); Hemoglobin 14.6 g/dl (14.0-18.0); Imm Gran Abs Auto 0.02 X10*3/uL (0.00-0.03); Imm Gran Pct Auto 0.3 % (0.0-0.4); Lymphocytes Absolute Auto 0.9 X10*3/uL (1.2-4.9); Mean Corpuscular HGB Conc 33.9 g/dl (31.0-36.0); Mean Corpuscular Hemoglobin 30.7 pg (27.0-33.0); Mean Corpuscular Volume 90.7 fL (80.0-98.0); Mean Platelet Volume 12.5 fL (9.4-12.4); Monocytes Absolute Auto 0.3 X10*3/uL (0.1-1.2); Monocytes Percent Auto 5.8 % (2-11); Neutrophils Absolute Auto 4.4 x10*3/uL (2.0-8.3); Neutrophils Percent Auto 75.7 % (45-73); Platelet Count 128 X10*3/uL (160-400); Red Blood Count 4.75 X10*6/uL (4.60-5.80); Red Cell Distribution Width 12.4 % (11.0-16.0); White Blood Count 5.8 X10*3/uL (4.8-10.8)
[2023-08-18 16:32] LABS: Alanine Aminotransferase 12 U/L (0-40); Albumin Level 4.3 g/dL (3.5-5.0); Alkaline Phosphatase 82 U/L (39-117); Anion Gap 13 (12-20); Aspartate Amino Transferase 19 U/L (5-37); Bilirubin Total 0.9 mg/dL (0.0-1.0); Blood Urea Nitrogen 27 mg/dL (9-16); Calcium 9.8 mg/dL (8.4-10.2); Carbon Dioxide 29 mmol/L (22-29); Chloride 106 mmol/L (96-108); Estimated Glomerular Filt Rate 41; Glucose Random 97 mg/dL (60-115); Potassium 4.1 mmol/L (3.3-5.1); Sodium 144 mmol/L (135-145); Total Protein 7.2 g/dL (6.5-8.0)
[2023-08-18 16:49] LABS: Erythrocyte Sedimentation Rate 5 MM/HR (0-15)
[2023-08-21 08:14] LABS: TS Negative Control Passed; TS Panel A 0; TS Panel B 0; TS Positive Control Passed; TSpotTB Negative (Negative)
== END 2023-08-18 14:29 | disposition home or self-care (01) ==
LOC: HO.HHCL 14:28
PROVIDERS: Visit Provider Student in an Organized Health Care Education/Training Program
DX: L40.50 Arthropathic psoriasis, unspecified (principal); Z11.7 Encounter for testing for latent tuberculosis infection
CPT/HCPCS: 36415; 80053; 85025; 85652; 86140; 86481

== ENCOUNTER 2023-08-19 13:47 | Outpatient (AMB) | payer MEDICAID, SELFPAY ==
[2023-08-19 13:49] VITALS: BP 124/80; PULSE 106; O2SAT 99; BMI 18.3
--- NOTE | 2023-08-19 13:49 | MHC.OFFVIS ---
Intake Vital Signs 08/19/23 13:49 Height 5 ft 4 in Weight 106 lb 11.26 oz BMI 18.3 BP 124/80 Blood Pressure Location Rt brachial Position Sitting Pulse 106 H Pulse Source Pulse Oximeter Pulse Oximetry (%) 99 Intake Visit Reasons: PsA Intake Note: Pt last seen 04/17/23 presents today for follow up and test result. Pt c/o joint pain everywhere. Editor Greeting Card Required: No Accompanied by: Self / Same As Patient Allergies bictegravir [BICTEGRAVIR] Adverse Reaction (Unknown, Verified 08/19/23 13:51) Fatigued dapsone [DAPSONE] Adverse Reaction (Unknown, Verified 08/19/23 13:51) G6PD DEFICIENT methotrexate [METHOTREXATE] Adverse Reaction (Unknown, Verified 08/19/23 13:51) HIGH LFT's, Elevated LFTs Sulfa (Sulfonamide Antibiotics) [SULFA (SULFONAMIDE ANTIBIOTICS)] Adverse Reaction (Unknown, Verified 08/19/23 13:51) G6PD DEFICIENT sulfamethoxazole [From BACTRIM] Adverse Reaction (Unknown, Verified 08/19/23 13:51) G6PD Deficient, elevated LFTs trimethoprim [From BACTRIM] Adverse Reaction (Unknown, Verified 08/19/23 13:51) G6PD DEFICIENT emtricitabine [From Biktarvy] Adverse Reaction (Verified 08/19/23 13:51) Fatigued tenofovir [From Biktarvy] Adverse Reaction (Verified 08/19/23 13:51) Fatigued Medication List - Last Reconciled 08/19/23 by Vel Tate MD adalimumab (Humira(CF)) 40 mg (0.4 mL) subcut Q2W buprenorphine-naloxone 8-2 mg (Suboxone) 1 strip sublingual BID darunavir-cobicistat 800-150 mg-mg (Prezcobix) 1 tab PO BEDTIME dolutegravir (Tivicay) 50 mg PO DAILY levetiracetam (Keppra) 500 mg PO Q12H naloxone 4 mg/actuation (Narcan) 1 spray intranasal PRN pyridoxine (vitamin B6) 100 mg PO DAILY 90 days HPI HPI Comments History of Present Illness Details Patient is a 58yoM with psoriatic arthritis who presents for follow-up. He also has history of HIV on HAART, hepatitis-B and C, pancytopenia, CKD Patient states that he is doing well overall. On Humira every other week. Well tolerated. States that recently has been having left shoulder pain, worse with movement. He does not recall any injury to the shoulder. No psoriasis rash. [facility] Medical History Arthritis Unintentional weight loss Poor dentition Failure to thrive History of COVID-19 Epigastric pain Methadone maintenance therapy patient Venous stasis of both lower extremities Compensated HCV cirrhosis Chronic, continuous use of opioids Psoriatic arthritis Chronic kidney disease, stage 3 Chronic hepatitis B Chronic hepatitis C G6PD deficiency HIV (human immunodeficiency virus infection) Surgical History History of removal of cyst No significant past surgical history Social History Alcohol intake: never Patient Tobacco Use Status: Former Tobacco user Quit Date: 1999 Substance Use Type: Marijuana Review of Systems [facility] Reports arthralgias Skin/Breast Denies rash Physical Exam Vital Signs: Last Vital Signs Pulse 106 H 08/19/23 13:49 BP 124/80 08/19/23 13:49 Pulse Ox 99 08/19/23 13:49 BMI result Body Mass Index 18.3 Const General: cooperative, healthy appearing and comfortable Nutritional Appearance: thin Orientation/consciousness: patient oriented x3 Limitations: no limitations HEENT Head: Yes normocephalic and Yes atraumatic Mouth: moist mucous membranes Resp Effort & Inspection: normal respiratory effort and able to speak in complete sentences Skin General skin exam: no rashes or lesions noted Neuro General: patient oriented x3 Extrem Other: Chronic deformities of both hands with no active synovitis normal range of motion of both elbows and shoulders Some tenderness to palpation of the left deltoid anteriorly Nail pitting of left foot 4th and 5th fingers Assessment & Plan Assessment & Plan (1) Psoriatic arthritis: Comment: MTX Dc due to transaminitis In 2013 he was cleared by ID to start Biologic therapy. Started Arava in 2014 and then Enbrel was added in Aug 2016 because of worsening skin rash. Stopped Enbrel in January 2018 Humira restarted December 2021 with ID clearance effective Code(s): L40.50 - Arthropathic psoriasis, unspecified Plan: This is a 58-year-old male with psoriasis and psoriatic arthritis who presents for follow-up. He also has history of HIV on HAART, hepatitis-B, hepatitis-C, CKD, pancytopenia. Follows up regularly with Infectious Disease. Patient is doing well with no active synovitis. No psoriasis on exam. Labs are stable. His left shoulder pain is likely due to bicipital tendinitis/rotator cuff tendinopathy. Will refer patient to PT Continue Humira 40 mg every other week. Labs before next visit in 4 months (2) High risk medication use: Code(s): Z79.899 - Other assisted (current) drug therapy Plan: Continue Humira 40 mg every other week. Continue to follow-up with ID (3) Immunization counseling: Code(s): Z71.85 - Encounter for immunization safety counseling Plan: Advised patient to get new COVID booster and flu vaccines for this season Plan I spent 27 minutes reviewing patient's chart, evaluating patient, ordering diagnostic workup, counseling patient and documenting in the chart Orders: Orders Comprehensive Met. Panel 4 Months L40.50 - Arthropathic psoriasis, unspecified C Reactive Protein 4 Months L40.50 - Arthropathic psoriasis, unspecified PT Evaluation and Treatment Today L40.50 - Arthropathic psoriasis, unspecified, M75.22 - Bicipital tendinitis, left shoulder, M75.82 - Other shoulder lesions, left shoulder Complete Blood Count Auto Diff 4 Months L40.50 - Arthropathic psoriasis, unspecified Erythrocyte Sedimentation Rate 4 Months L40.50 - Arthropathic psoriasis, unspecified Coding Level of Care Code Est Pt Level 4 (25474) Diagnoses Psoriatic arthritis L40.50 High risk medication use Z79.899 Immunization counseling Z71.85
== END 2023-08-19 14:08 | disposition home or self-care (01) ==
LOC: HO.RHE 13:47
PROVIDERS: PCP Family Medicine; Referring Provider Family Medicine; Visit Provider Student in an Organized Health Care Education/Training Program
DX: L40.50 Arthropathic psoriasis, unspecified (principal); Z79.899 Other long term (current) drug therapy; Z71.85 Encounter for immunization safety counseling
CPT/HCPCS: 99214

== ENCOUNTER → 2023-08-19 13:47 | Outpatient (BNVA) | payer MEDICAID, SELFPAY | PROVIDERS: PCP Family Medicine; Visit Provider Student in an Organized Health Care Education/Training Program | DX: L40.50 Arthropathic psoriasis, unspecified (principal); Z79.899 Other long term (current) drug therapy; Z71.85 Encounter for immunization safety counseling | CPT/HCPCS: 99212 ==

== ENCOUNTER 2023-08-25 13:13 | Emergency (ER) | payer MEDICAID, SELFPAY ==
[2023-08-25 13:32] VITALS: BP 148/83; PULSE 93; RESP 18; TEMP 36.6; O2SAT 94; BMI 19.0
--- NOTE | 2023-08-25 13:41 | ED.GENADULT ---
HPI - General Adult General Chief complaint: Abdominal Pain Stated complaint: Stomach Pain History of Present Illness HPI narrative: Left before completion of treatment by ED provider Related Data Home Medications Medication Instructions Recorded Confirmed dolutegravir 50 mg tablet (Tivicay) 50 mg PO DAILY 07/19/20 04/17/23 buprenorphine 8 mg-naloxone 2 mg 1 strip sublingual BID 01/25/21 04/17/23 sublingual film (Suboxone) darunavir 800 mg-cobicistat 150 mg 1 tab PO BEDTIME 11/25/21 04/17/23 tablet (Prezcobix) naloxone 4 mg/actuation nasal 1 spray intranasal PRN 11/25/21 04/17/23 spray (Narcan) Previous Rx's Medication Instructions Recorded levetiracetam 500 mg tablet 500 mg PO Q12H #60 tabs 02/08/23 (Keppra) pyridoxine (vitamin B6) 100 mg 100 mg PO DAILY 90 days #90 tabs 05/04/23 tablet adalimumab 40 mg/0.4 mL 40 mg (0.4 mL) subcut Q2W #2 ea 07/24/23 subcutaneous syringe kit (Humira(CF)) Allergies Allergy/AdvReac Type Severity Reaction Status Date / Time bictegravir [BICTEGRAVIR] AdvReac Unknown Fatigued Verified 08/25/23 13:32 dapsone [DAPSONE] AdvReac Unknown G6PD Verified 08/25/23 13:32 DEFICIENT methotrexate [METHOTREXATE] AdvReac Unknown HIGH Verified 08/25/23 13:32 LFT's, Elevated LFTs Sulfa (Sulfonamide AdvReac Unknown G6PD Verified 08/25/23 13:32 Antibiotics) DEFICIENT [SULFA (SULFONAMIDE ANTIBIOTICS)] sulfamethoxazole AdvReac Unknown G6PD Verified 08/25/23 13:32 [From BACTRIM] Deficient, elevated LFTs trimethoprim [From BACTRIM] AdvReac Unknown G6PD Verified 08/25/23 13:32 DEFICIENT emtricitabine [From Biktarvy] AdvReac Fatigued Verified 08/25/23 13:32 tenofovir [From Biktarvy] AdvReac Fatigued Verified 08/25/23 13:32 PMFSH Past Medical History Onset Date is defined in the Problem List Problems that require an onset date and time if occurred within 24 hrs of arrival to the ED Aortic Dissection and Rupture; Neurologic impairment; Cardiopulmonary Arrest; Endotracheal Intubation; Insertion or Replacement of Mechanical Circulatory Assist Device Medical History Arthritis Unintentional weight loss Poor dentition Failure to thrive History of COVID-19 Epigastric pain Methadone maintenance therapy patient Venous stasis of both lower extremities Compensated HCV cirrhosis Chronic, continuous use of opioids Psoriatic arthritis Chronic kidney disease, stage 3 Chronic hepatitis B Chronic hepatitis C G6PD deficiency HIV (human immunodeficiency virus infection) Surgical History History of removal of cyst No significant past surgical history Social History Social History Alcohol intake: never Patient Tobacco Use Status: Former Tobacco user Quit Date: 1999 Substance Use Type: Marijuana Advance Directives: No Advance Directives Information Provided: No Physical Exam ED Vital Signs: Vital Signs - 24 hr 08/25/23 13:32 Temperature 98 F Pulse Rate 93 Respiratory Rate 18 Blood Pressure 148/83 H Pulse Oximetry 94 Oxygen Delivery Method Room Air BMI result Body Mass Index 19.0 Course Course Course Narrative: RME: 58 yold male presents to ED for abdominal pain and diarrheax 2 days with nausea. Patient denies any blood in her stool. Patient denies any urinary symptoms. Labs are as ordered Medical Decision Making Lab Data 08/25/23 14:09 08/25/23 14:09 Labs: Lab Results 08/25/23 Range/Units 14:09 WBC 5.4 (4.8-10.8) X10*3/uL RBC 4.82 (4.60-5.80) X10*6/uL Hgb 14.7 (14.0-18.0) g/dl Hct 43.4 (42.0-52.0) % MCV 90.0 (80.0-98.0) fL MCH 30.5 (27.0-33.0) pg MCHC 33.9 (31.0-36.0) g/dl RDW 12.1 (11.0-16.0) % Plt Count 127 L (160-400) X10*3/uL MPV 11.6 (9.4-12.4) fL Immature Gran % (Auto) 0.2 (0.0-0.4) % Neut % (Auto) 77.2 H (45-73) % Lymph % (Auto) 14.6 L (20-40) % Carson % (Auto) 5.7 (2-11) % Eos % (Auto) 1.7 (0-4) % Baso % (Auto) 0.6 (0-2) % Lymph # (Auto) 0.8 L (1.2-4.9) X10*3/uL Carson # (Auto) 0.3 (0.1-1.2) X10*3/uL Eos # (Auto) 0.1 (0.0-0.4) X10*3/uL Baso # (Auto) 0.0 (0.0-0.2) X10*3/uL Abs Immat Gran (auto) 0.01 (0.00-0.03) X10*3/uL Absolute Neuts (auto) 4.2 (2.0-8.3) x10*3/uL Absolute Nucleated RBC 0.000 (0.0-0.012) X10*3/uL Nucleated RBC % (auto) 0.0 (0.0-0.2) /100WBC PT 10.9 L (11.1-13.3) SEC INR 0.9 (0.9-1.1) APTT 30.5 (26.0-36.4) SEC Sodium 143 (135-145) mmol/L Potassium 4.3 (3.3-5.1) mmol/L Chloride 105 (96-108) mmol/L Carbon Dioxide 30 H (22-29) mmol/L Anion Gap 12 (12-20) BUN 26 H (9-16) mg/dL Creatinine 1.94 H (0.5-1.4) mg/dL Estim Creat Clear Calc 28.4 Estimated GFR 36 Random Glucose 95 (60-115) mg/dL Calcium 9.7 (8.4-10.2) mg/dL Total Bilirubin 1.1 H (0.0-1.0) mg/dL AST 20 (5-37) U/L ALT 14 (0-40) U/L Alkaline Phosphatase 86 (39-117) U/L Total Protein 7.3 (6.5-8.0) g/dL Albumin 4.2 (3.5-5.0) g/dL Lipase 33 (8-78) U/L Influenza Type A (PCR) NEGATIVE (Negative) Influenza Type B (PCR) NEGATIVE (Negative) RSV RNA Qual (PCR) NEGATIVE (Negative) SARS-CoV-2 RNA (RT-PCR) NEGATIVE (Negative) Discharge Plan Discharge Clinical Impression: Abdominal pain Patient Disposition: Left W/O Completing Treatment Prescriptions: No Action Humira(CF) 40 mg/0.4 mL syringe kit 40 mg subcut Q2W Qty: 2 2RF buprenorphine-naloxone [Suboxone] 8-2 mg film 1 strip sublingual BID levetiracetam [Keppra] 500 mg tablet 500 mg PO Q12H Qty: 60 0RF Tivicay 50 mg tablet 50 mg PO DAILY Prezcobix 800-150 mg-mg tablet 1 tab PO BEDTIME naloxone [Narcan] 4 mg/actuation spray,non-aerosol 1 spray intranasal PRN pyridoxine (vitamin B6) 100 mg tablet 100 mg PO DAILY 90 Days Qty: 90 2RF Discharge Date/Time: 08/25/23 22:04
[2023-08-25 14:14] LABS: MANUAL DIFF FLAG NO
[2023-08-25 14:17] LABS: Basophils Percent Auto 0.6 % (0-2); Eosinophils Absolute Auto 0.1 X10*3/uL (0.0-0.4); Eosinophils Percent Auto 1.7 % (0-4); Hematocrit 43.4 % (42.0-52.0); Hemoglobin 14.7 g/dl (14.0-18.0); Imm Gran Abs Auto 0.01 X10*3/uL (0.00-0.03); Imm Gran Pct Auto 0.2 % (0.0-0.4); Lymphocytes Absolute Auto 0.8 X10*3/uL (1.2-4.9); Lymphocytes Percent Auto 14.6 % (20-40); Mean Corpuscular HGB Conc 33.9 g/dl (31.0-36.0); Mean Corpuscular Hemoglobin 30.5 pg (27.0-33.0); Mean Platelet Volume 11.6 fL (9.4-12.4); Monocytes Absolute Auto 0.3 X10*3/uL (0.1-1.2); Monocytes Percent Auto 5.7 % (2-11); Neutrophils Absolute Auto 4.2 x10*3/uL (2.0-8.3); Neutrophils Percent Auto 77.2 % (45-73); Platelet Count 127 X10*3/uL (160-400); Red Blood Count 4.82 X10*6/uL (4.60-5.80); Red Cell Distribution Width 12.1 % (11.0-16.0); White Blood Count 5.4 X10*3/uL (4.8-10.8)
[2023-08-25 14:21] LABS: INTERNATIONAL NORM RATIO 0.9 (0.9-1.1); Prothrombin Time 10.9 SEC (11.1-13.3)
[2023-08-25 14:23] LABS: Partial Thromboplastin Time 30.5 SEC (26.0-36.4)
[2023-08-25 14:29] LABS: Alanine Aminotransferase 14 U/L (0-40); Albumin Level 4.2 g/dL (3.5-5.0); Alkaline Phosphatase 86 U/L (39-117); Anion Gap 12 (12-20); Aspartate Amino Transferase 20 U/L (5-37); Bilirubin Total 1.1 mg/dL (0.0-1.0); Blood Urea Nitrogen 26 mg/dL (9-16); Calcium 9.7 mg/dL (8.4-10.2); Carbon Dioxide 30 mmol/L (22-29); Chloride 105 mmol/L (96-108); Creatinine Clr Calc Pharmacy 28.4; Estimated Glomerular Filt Rate 36; Glucose Random 95 mg/dL (60-115); Lipase 33 U/L (8-78); Potassium 4.3 mmol/L (3.3-5.1); Sodium 143 mmol/L (135-145); Total Protein 7.3 g/dL (6.5-8.0)
[2023-08-25 14:55] LABS: Influenza A PCR NEGATIVE (Negative); Influenza B PCR NEGATIVE (Negative); Resp Syncy Virus RNA Qual PCR NEGATIVE (Negative); SARS COV2 PCR INHOUSE NEGATIVE (Negative)
== END 2023-08-25 22:04 | disposition left against medical advice (07) ==
LOC: HO.ED 22:03
PROVIDERS: Physician Assistant; Emergency Provider Emergency Medicine; PCP Family Medicine
DX: R10.9 Unspecified abdominal pain (principal); Z20.822 Contact with and (suspected) exposure to COVID-19; Z20.828 Contact with and (suspected) exposure to other viral communicable diseases; Z79.899 Other long term (current) drug therapy
CPT/HCPCS: 0241U; 80053; 83690; 85025; 85610; 85730; 99281; 99283

== ENCOUNTER 2023-10-27 11:51 | Outpatient (REF) | payer MEDICAID, SELFPAY ==
[2023-10-27 14:04] LABS: Cholesterol 188 mg/dL (<200); HDL Cholesterol 55 mg/dL (>40); LDL Cholesterol Calculated 124 mg/dL (<100); Triglycerides 48 mg/dL (<150)
[2023-10-27 14:10] LABS: Reflex LDLD? No
[2023-10-28 04:21] LABS: Syphilis Screen Nonreactive (Nonreactive)
== END 2023-10-27 11:52 | disposition home or self-care (01) ==
LOC: HO.HHCL 11:51
PROVIDERS: Visit Provider Family Medicine
DX: B20 Human immunodeficiency virus [HIV] disease (principal); R30.0 Dysuria
CPT/HCPCS: 36415; 80061; 86780; 87661

== ENCOUNTER 2023-11-04 13:52 | Outpatient (REF) | payer MEDICAID, SELFPAY ==
--- NOTE | ~2023-11-04 | US_ITS ---
EXAMINATION: US RETROPERITONEAL LIMITED (RENAL ONLY) CLINICAL INFORMATION: Cyst of kidney, acquired. COMPARISON: Renal ultrasound 12/11/2022. CT chest, abdomen and pelvis 06/04/2020. Ultrasound kidneys and bladder 01/25/2020. TECHNIQUE: Real-time imaging of the kidneys. FINDINGS: RIGHT KIDNEY: 9.9 x 5.0 x 5.0 cm (SAG x AP x TRV). The kidney is small although cortical thickness appears normal. No hydronephrosis. There is a 0.9 cm simple appearing cyst in the lower pole, for which no imaging follow-up is recommended. There are scattered hyperechoic foci that could represent a combination of nonobstructive calculi and vascular calcifications. LEFT KIDNEY: Atrophic limitedly visualized kidney measuring up to 5.4 cm in length. No hydronephrosis. US/US renal BI IMPRESSION: 1. Atrophic left kidney. 2. Scattered hyperechoic foci in the right kidney which could represent nonobstructive calculi and vascular calcifications. No hydronephrosis. 3. Simple appearing cyst in the lower pole of the right kidney for which no imaging follow-up is recommended.
== END 2023-11-04 13:53 | disposition home or self-care (01) ==
LOC: HO.US 13:52
PROVIDERS: PCP Family Medicine; Visit Provider Nurse Practitioner Family
DX: N28.1 Cyst of kidney, acquired (principal); N26.1 Atrophy of kidney (terminal); N20.0 Calculus of kidney
CPT/HCPCS: 76775

== ENCOUNTER 2023-11-09 10:34 | Outpatient (AMB) | payer MEDICAID, SELFPAY ==
--- NOTE | 2023-11-09 10:43 | A.OFFVIS_ITS ---
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 Accompanied by: Self / Same As Patient Allergies bictegravir [BICTEGRAVIR] Adverse Reaction (Unknown, Verified 11/09/23 11:03) Fatigued dapsone [DAPSONE] Adverse Reaction (Unknown, Verified 11/09/23 11:03) G6PD DEFICIENT methotrexate [METHOTREXATE] Adverse Reaction (Unknown, Verified 11/09/23 11:03) HIGH LFT's, Elevated LFTs Sulfa (Sulfonamide Antibiotics) [SULFA (SULFONAMIDE ANTIBIOTICS)] Adverse Reaction (Unknown, Verified 11/09/23 11:03) G6PD DEFICIENT sulfamethoxazole [From BACTRIM] Adverse Reaction (Unknown, Verified 11/09/23 11:03) G6PD Deficient, elevated LFTs trimethoprim [From BACTRIM] Adverse Reaction (Unknown, Verified 11/09/23 11:03) G6PD DEFICIENT emtricitabine [From Biktarvy] Adverse Reaction (Verified 11/09/23 11:03) Fatigued tenofovir [From Biktarvy] Adverse Reaction (Verified 11/09/23 11:03) Fatigued Medication List - Last Reconciled 11/09/23 by QUENTIN Keller-JR adalimumab (Humira(CF)) 40 mg (0.4 mL) subcut Q2W buprenorphine-naloxone 8-2 mg (Suboxone) 1 strip sublingual BID darunavir-cobicistat 800-150 mg-mg (Prezcobix) 1 tab PO BEDTIME dolutegravir (Tivicay) 50 mg PO DAILY levetiracetam (Keppra) 500 mg PO Q12H naloxone 4 mg/actuation (Narcan) 1 spray intranasal PRN pyridoxine (vitamin B6) 100 mg PO DAILY 90 days HPI HPI Comments History of Present Illness Details Joe is a pleasant 58 year old male patient of Dr. Mallory. He has a PMH of HIV, nephropathy, pancytopenia, Hep C, Hep B and Psoriatic Arthritis. Patient presents to the office today for follow-up of his nephrolithiasis. Recent renal ultrasound results reviewed with the patient today. Right kidney with no hydronephrosis. There is a 0.9 cm simple appearing cyst in the lower pole for which no imaging follow-up is recommended per radiology report. There are scattered hyper echoic foci that could represent combination of nonobstructing calculi or vascular calcifications. Left kidney atrophic limited visualization. No hydronephrosis noted. When asked patient denies any bothersome urinary issues or concerns at this time. He denies urinary urgency, urinary frequency, incontinence, nocturia, hematuria, dysuria, foul smelling urine, changes to urinary stream, fever, flank pain, and or chills. PSA 12/07--0.1. Discussed at length potential causes for nephrolithiasis. Patient reports he had been following up with Nephrology for ongoing left atrophic kidney with Dr. Richards however has lost his follow-up. In office urinalysis results reviewed with the patient today. He otherwise offers no issues or concerns at this time. [facility] Medical History Arthritis Unintentional weight loss Poor dentition Failure to thrive History of COVID-19 Epigastric pain Methadone maintenance therapy patient Venous stasis of both lower extremities Compensated HCV cirrhosis Chronic, continuous use of opioids Psoriatic arthritis Chronic kidney disease, stage 3 Chronic hepatitis B Chronic hepatitis C G6PD deficiency HIV (human immunodeficiency virus infection) Surgical History History of removal of cyst No significant past surgical history Social History Alcohol intake: never Patient Tobacco Use Status: Former Tobacco user Quit Date: 1999 Substance Use Type: Marijuana Review of Systems Const All systems reviewed & are unremarkable except as noted in HPI and below Reports no additional complaints Eyes Reports no additional complaints ENT Reports no additional complaints Card Reports no additional complaints Resp Reports no additional complaints GI Reports no additional complaints Reports as per HPI Musc Reports no additional complaints Neuro Reports no additional complaints Psych Reports no additional complaints Endo Reports no additional complaints Giles/Lymph Reports as per HPI Aller/Immun Reports as per HPI Physical Exam Const General: cooperative, healthy appearing, comfortable, no acute distress, well developed, alert and awake Nutritional Appearance: thin Orientation/consciousness: patient oriented x3 Limitations: no limitations HEENT Head: Yes normal to inspection, Yes normocephalic and Yes atraumatic Ears: hearing grossly normal bilaterally Eyes General: appearance normal, both eyes and all related structures Neck Neck: Yes normal visual inspection and Yes trachea midline Chest Chest palpation & inspection: normal inspection of the chest Resp Effort & Inspection: normal respiratory effort and able to speak in complete sentences Cardio Rate: regular rate GI Inspection: Yes normal to inspection General: Yes no CVA tenderness Back/Spine/Pelvis Back: no CVA tenderness Skin General skin exam: no rashes or lesions noted Neuro General: patient oriented x3 Extrem General: Yes normal to inspection Psych Appearance: grossly normal and well kempt Mental Status: mental status grossly normal Speech and movement: Normal speech and movement present and Clear speech present Affect: normal affect Attitude: cooperative Thought process: Normal thought process present Thought content: Normal thought content present Insight: Fair insight present (Psych) Judgement: Fair judgement present (Psych) Results AMB Urinalysis, Automated UA Leukoctes 0 Leoncio/uL Last Edit by Buzzoek on 11/09/23 11:09 UA Nitrite Negative Last Edit by Buzzoek on 11/09/23 11:09 UA Urobilinogen 0.2 mg/dL Last Edit by Buzzoek on 11/09/23 11:09 UA Protein 30 mg/dL Last Edit by Buzzoek on 11/09/23 11:09 UA pH 6.5 Last Edit by Buzzoek on 11/09/23 11:09 UA Blood 10 Huey/uL Last Edit by Buzzoek on 11/09/23 11:09 UA Specific [place] 1.010 Last Edit by Buzzoek on 11/09/23 11:09 UA Ketone Negative Last Edit by Buzzoek on 11/09/23 11:09 UA Bilirubin 0 mg/dL Last Edit by Buzzoek on 11/09/23 11:09 UA Glucose 0 mg/dL Last Edit by Buzzoek on 11/09/23 11:09 Results Reviewed Results Reviewed: Laboratory Last Values Urine pH (Auto) 6.5 11/09/23 11:03 Specific [place] (Auto) 1.010 11/09/23 11:03 Urine Protein (Auto) 30 mg/dL 11/09/23 11:03 Glucose (UA)(Auto) 0 mg/dL 11/09/23 11:03 Urine Ketones (Auto) Negative 11/09/23 11:03 Urine Blood (Auto) 10 Huey/uL 11/09/23 11:03 Urine Nitrite (Auto) Negative 11/09/23 11:03 Urine Bilirubin (Auto) 0 mg/dL 11/09/23 11:03 Urine Urobilinogen (Auto) 0.2 mg/dL 11/09/23 11:03 Leukocyte Esterase (Auto) 0 Leoncio/uL 11/09/23 11:03 Date of Service: 11/04/23 EXAMINATION: US RETROPERITONEAL LIMITED (RENAL ONLY) FINDINGS: RIGHT KIDNEY: 9.9 x 5.0 x 5.0 cm (SAG x AP x TRV). The kidney is small although cortical thickness appears normal. No hydronephrosis. There is a 0.9 cm simple appearing cyst in the lower pole, for which no imaging follow-up is recommended. There are scattered hyperechoic foci that could represent a combination of nonobstructive calculi and vascular calcifications. LEFT KIDNEY: Atrophic limitedly visualized kidney measuring up to 5.4 cm in length. No hydronephrosis. IMPRESSION: 1. Atrophic left kidney. 2. Scattered hyperechoic foci in the right kidney which could represent nonobstructive calculi and vascular calcifications. No hydronephrosis. 3. Simple appearing cyst in the lower pole of the right kidney for which no imaging follow-up is recommended. Assessment & Plan Assessment & Plan (1) Atrophic kidney: Code(s): N26.1 - Atrophy of kidney (terminal) (2) Renal cyst: Code(s): N28.1 - Cyst of kidney, acquired (3) Nephrolithiasis: Code(s): N20.0 - Calculus of kidney Plan In office urinalysis results reviewed with the patient today; as noted above. Recent renal ultrasound results reviewed with the patient today; as noted above. Will refer to Nephrology. Patient currently denies any bothersome urinary issues or concerns. He is happy with his current voiding parameters. Discussed, educated, and stressed the importance of drinking adequate amount of water daily. Will obtain renal ultrasound in 1 year Will obtain PSA Follow-up in 1 year with imaging to be completed prior; or sooner with any issues, concerns, and or questions. Orders: Orders AMB Urinalysis Automated Today Z13.9 - Encounter for screening, unspecified US renal BI 1 Year N20.0 - Calculus of kidney US renal BI 11/04/23 N20.0 - Calculus of kidney, N26.1 - Atrophy of kidney (terminal), N28.1 - Cyst of kidney, acquired Prostate Specific Antigen Today N40.0 - Benign prostatic hyperplasia without lower urinary tract symptoms Referrals Nephrology Referral N26.1 - Atrophy of kidney (terminal) Patient Instructions: The patient had an opportunity to ask questions regarding the treatment plan. All questions were answered. Physical exam, labs, and imaging were discussed and reviewed in detail. As well as risks, benefits, and discussion of treatment choices. No major barriers to understanding were identified. The patient expressed understanding and agreement with the above treatment plan. The patient was made aware they should contact our office by phone for worsening of their current condition, the appearance of new symptoms, or with any questions or concerns. Compliance is encouraged with any medications and follow up testing that is ordered. It is a privilege to be allowed the opportunity to participate in? your urological care.? Again, if you have any questions or concerns If you have any questions or concerns please do not hesitate to contact me. The office is [phone]. This note is constructed using voice recognition software. While every effort has been made to ensure accuracy designer writer errors may have been included. Yours sincerely, EVERARDO Keller Coding Level of Care Code Est Pt Level 3 (70256) Diagnoses Atrophic kidney N26.1 Renal cyst N28.1 Nephrolithiasis N20.0
== END 2023-11-09 11:17 | disposition home or self-care (01) ==
PROVIDERS: PCP Family Medicine; Visit Provider Nurse Practitioner Family
DX: N26.1 Atrophy of kidney (terminal) (principal); N28.1 Cyst of kidney, acquired; N20.0 Calculus of kidney; Z13.9 Encounter for screening, unspecified
CPT/HCPCS: 99213

== ENCOUNTER → 2023-11-09 10:34 | Outpatient (BNVA) | payer MEDICAID, SELFPAY | PROVIDERS: PCP Family Medicine; Visit Provider Nurse Practitioner Family | DX: N28.1 Cyst of kidney, acquired (principal); N26.1 Atrophy of kidney (terminal); N20.0 Calculus of kidney | CPT/HCPCS: 81003; 99212 ==

== ENCOUNTER 2023-12-29 13:11 | Outpatient (REF) | payer MEDICAID, SELFPAY ==
[2023-12-29 15:59] LABS: MANUAL DIFF FLAG NO
[2023-12-29 16:05] LABS: Basophils Percent Auto 0.6 % (0-2); Eosinophils Absolute Auto 0.1 X10*3/uL (0.0-0.4); Eosinophils Percent Auto 1.1 % (0-4); Hemoglobin 13.6 g/dl (14.0-18.0); Imm Gran Abs Auto 0.02 X10*3/uL (0.00-0.03); Imm Gran Pct Auto 0.4 % (0.0-0.4); Lymphocytes Absolute Auto 0.9 X10*3/uL (1.2-4.9); Lymphocytes Percent Auto 16.1 % (20-40); Mean Corpuscular Hemoglobin 30.4 pg (27.0-33.0); Mean Corpuscular Volume 89.3 fL (80.0-98.0); Mean Platelet Volume 12.3 fL (9.4-12.4); Monocytes Absolute Auto 0.3 X10*3/uL (0.1-1.2); Monocytes Percent Auto 5.9 % (2-11); Neutrophils Absolute Auto 4.1 x10*3/uL (2.0-8.3); Neutrophils Percent Auto 75.9 % (45-73); Platelet Count 148 X10*3/uL (160-400); Red Blood Count 4.48 X10*6/uL (4.60-5.80); Red Cell Distribution Width 12.3 % (11.0-16.0); White Blood Count 5.4 X10*3/uL (4.8-10.8)
[2023-12-29 16:38] LABS: Alanine Aminotransferase 16 U/L (0-40); Albumin Level 4.3 g/dL (3.5-5.0); Alkaline Phosphatase 90 U/L (39-117); Anion Gap 15 (12-20); Aspartate Amino Transferase 23 U/L (5-37); Bilirubin Total 1.1 mg/dL (0.0-1.0); Blood Urea Nitrogen 23 mg/dL (9-16); C Reactive Protein 0.53 mg/dL (< or = 0.50); Calcium 9.7 mg/dL (8.4-10.2); Carbon Dioxide 27 mmol/L (22-29); Chloride 106 mmol/L (96-108); Estimated Glomerular Filt Rate 41; Glucose Random 107 mg/dL (60-115); Sodium 144 mmol/L (135-145); Total Protein 7.4 g/dL (6.5-8.0)
[2023-12-29 16:51] LABS: Erythrocyte Sedimentation Rate 10 MM/HR (0-15)
[2023-12-29 16:59] LABS: Prostate Specific Antigen 0.69 ng/mL (<0.05-4.0)
[2023-12-30 09:58] LABS: Absolute CD3 Count 759 cells/uL (840-3060); Absolute CD4 Count 333 cells/uL (490-1740); Absolute CD8 Count 421 cells/uL (180-1170); Absolute Lymphocytes 998 cells/uL (850-3900); CD4 CD8 Ratio 0.79 (0.86-5.00); Percent CD3 Cells 76 % (57-85); Percent CD4 Cells 33 % (30-61); Percent CD8 Cells 42 % (12-42)
[2023-12-31 04:08] LABS: HIV RNA PCR Qn Copies NOT DETECTED copies/mL (NOT DETECTED); HIV RNA PCR Qn Log Copies NOT DETECTED (NOT DETECTED)
== END 2023-12-29 13:12 | disposition home or self-care (01) ==
LOC: HO.HHCL 13:11
PROVIDERS: Internal Medicine; Nurse Practitioner Family; Visit Provider Student in an Organized Health Care Education/Training Program
DX: B20 Human immunodeficiency virus [HIV] disease (principal); L40.50 Arthropathic psoriasis, unspecified; N40.0 Benign prostatic hyperplasia without lower urinary tract symptoms
CPT/HCPCS: 36415; 80053; 84153; 85025; 85652; 86140; 86359; 86360; 87536

== ENCOUNTER 2023-12-31 09:59 | Outpatient (AMB) | payer MEDICAID, SELFPAY ==
--- NOTE | 2023-12-31 10:00 | MHC.OFFVIS ---
Vital Signs 12/31/23 10:07 Height 5 ft 3 in Weight 107 lb 12.897 oz BMI 19.1 BP 120/88 Blood Pressure Location Rt brachial Position Sitting Pulse 87 Pulse Source Pulse Oximeter Pulse Oximetry (%) 95 Oxygen Delivery Method Room Air Intake Visit Reasons: PsA/CM Intake Note: Patient last seen 08/19/23 presents today for follow up and test results. c/o back pain and cramping as well as abigail leg cramping that radiates up the leg. Patient reports his feet freeze up. 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 Accompanied by: Self / Same As Patient Allergies bictegravir [BICTEGRAVIR] Adverse Reaction (Unknown, Verified 12/31/23 10:00) Fatigued dapsone [DAPSONE] Adverse Reaction (Unknown, Verified 12/31/23 10:00) G6PD DEFICIENT methotrexate [METHOTREXATE] Adverse Reaction (Unknown, Verified 12/31/23 10:00) HIGH LFT's, Elevated LFTs Sulfa (Sulfonamide Antibiotics) [SULFA (SULFONAMIDE ANTIBIOTICS)] Adverse Reaction (Unknown, Verified 12/31/23 10:00) G6PD DEFICIENT sulfamethoxazole [From BACTRIM] Adverse Reaction (Unknown, Verified 12/31/23 10:00) G6PD Deficient, elevated LFTs trimethoprim [From BACTRIM] Adverse Reaction (Unknown, Verified 12/31/23 10:00) G6PD DEFICIENT emtricitabine [From Biktarvy] Adverse Reaction (Verified 12/31/23 10:00) Fatigued tenofovir [From Biktarvy] Adverse Reaction (Verified 12/31/23 10:00) Fatigued Medication List - Last Reconciled 12/31/23 by Vel Tate MD adalimumab (Humira(CF)) 40 mg (0.4 mL) subcut Q2W buprenorphine-naloxone 8-2 mg (Suboxone) 1 strip sublingual BID darunavir-cobicistat 800-150 mg-mg (Prezcobix) 1 tab PO BEDTIME dolutegravir (Tivicay) 50 mg PO DAILY levetiracetam (Keppra) 500 mg PO Q12H naloxone 4 mg/actuation (Narcan) 1 spray intranasal PRN prednisone orally; take 2 tabs daily for 1 week then 1 tab daily for 1 week then stop pyridoxine (vitamin B6) 100 mg PO DAILY 90 days HPI Comments Details: Patient is a 58yoM with psoriatic arthritis who presents for follow-up. He also has history of HIV on HAART, hepatitis-B and C, pancytopenia, CKD On Humira every other week. Well tolerated. States that he has been having diffuse tingling electric shock-like sensation, of his entire body in the day and in the night. He believes it might be due to stress. He does not sleep well. Has been having some aching in his right hand and wrist. No significant swelling. [facility] Medical History Arthritis Unintentional weight loss Poor dentition Failure to thrive History of COVID-19 Epigastric pain Methadone maintenance therapy patient Venous stasis of both lower extremities Compensated HCV cirrhosis Chronic, continuous use of opioids Psoriatic arthritis Chronic kidney disease, stage 3 Chronic hepatitis B Chronic hepatitis C G6PD deficiency HIV (human immunodeficiency virus infection) Surgical History History of removal of cyst No significant past surgical history Social History Alcohol intake: never Patient Tobacco Use Status: Former Tobacco user Quit Date: 1999 Substance Use Type: Marijuana Review of Systems Musc Reports arthralgias and Reports tingling Neuro Reports tingling and Reports paresthesias Physical Exam Vital Signs: Last Vital Signs Pulse 87 12/31/23 10:07 BP 120/88 12/31/23 10:07 Pulse Ox 95 12/31/23 10:07 Oxygen Delivery Method Room Air 12/31/23 10:07 BMI result Body Mass Index 19.1 Const General: cooperative, healthy appearing and comfortable Nutritional Appearance: thin Orientation/consciousness: patient oriented x3 Limitations: no limitations HEENT Head: Yes normocephalic and Yes atraumatic Mouth: moist mucous membranes Resp Effort & Inspection: normal respiratory effort and able to speak in complete sentences Skin General skin exam: no rashes or lesions noted Neuro General: patient oriented x3 Extrem Other: Chronic deformities of both hands Mild tenderness at the left wrist without swelling Mild right 5th MCP tenderness normal range of motion of both elbows and shoulders Nail pitting of left foot 4th and 5th toes Assessment & Plan Assessment & Plan (1) Psoriatic arthritis: Comment: MTX Dc due to transaminitis In 2013 he was cleared by ID to start Biologic therapy. Started Arava in 2014 and then Enbrel was added in Aug 2016 because of worsening skin rash. Stopped Enbrel in January 2018 Humira restarted December 2021 with ID clearance effective Code(s): L40.50 - Arthropathic psoriasis, unspecified Category: Medical Plan: This is a 58-year-old male with psoriasis and psoriatic arthritis who presents for follow-up. He also has history of HIV on HAART, hepatitis-B, hepatitis-C, CKD, pancytopenia. Follows up regularly with Infectious Disease. Today patient complaining of few achy joints. On exam he has few tender joints without swelling. Minimal flare. Will prescribe a low-dose short prednisone taper. 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 Continue to follow-up with ID Plan I spent 27 minutes reviewing patient's chart, evaluating patient, ordering diagnostic workup, counseling patient and documenting in the chart Orders: Orders Complete Blood Count Auto Diff 4 Months L40.50 - Arthropathic psoriasis, unspecified C Reactive Protein 4 Months L40.50 - Arthropathic psoriasis, unspecified Comprehensive Met. Panel 4 Months L40.50 - Arthropathic psoriasis, unspecified Erythrocyte Sedimentation Rate 4 Months L40.50 - Arthropathic psoriasis, unspecified Medications: New prednisone orally; take 2 tabs daily for 1 week then 1 tab daily for 1 week then stop 21 tabs 0RF Coding Level of Care Code Est Pt Level 4 (76747) Diagnoses Psoriatic arthritis L40.50 High risk medication use Z79.899
[2023-12-31 10:07] VITALS: BP 120/88; PULSE 87; O2SAT 95; BMI 19.1
== END 2023-12-31 10:37 | disposition home or self-care (01) ==
PROVIDERS: PCP Family Medicine; Referring Provider Family Medicine; Visit Provider Student in an Organized Health Care Education/Training Program
DX: L40.50 Arthropathic psoriasis, unspecified (principal); Z79.899 Other long term (current) drug therapy
CPT/HCPCS: 99214

== ENCOUNTER 2023-12-31 09:59 | Outpatient (REF) | payer MEDICAID, SELFPAY ==
[2023-12-31 11:06] LABS: MANUAL DIFF FLAG NO
[2023-12-31 11:46] LABS: Basophils Percent Auto 0.6 % (0-2); Eosinophils Absolute Auto 0.1 X10*3/uL (0.0-0.4); Eosinophils Percent Auto 1.7 % (0-4); Hematocrit 43.1 % (42.0-52.0); Hemoglobin 14.5 g/dl (14.0-18.0); Imm Gran Abs Auto 0.03 X10*3/uL (0.00-0.03); Imm Gran Pct Auto 0.6 % (0.0-0.4); Lymphocytes Absolute Auto 1.1 X10*3/uL (1.2-4.9); Lymphocytes Percent Auto 20.9 % (20-40); Mean Corpuscular HGB Conc 33.6 g/dl (31.0-36.0); Mean Corpuscular Hemoglobin 30.3 pg (27.0-33.0); Mean Platelet Volume 12.1 fL (9.4-12.4); Monocytes Absolute Auto 0.3 X10*3/uL (0.1-1.2); Neutrophils Absolute Auto 3.9 x10*3/uL (2.0-8.3); Neutrophils Percent Auto 71.2 % (45-73); Platelet Count 143 X10*3/uL (160-400); Red Blood Count 4.79 X10*6/uL (4.60-5.80); Red Cell Distribution Width 12.3 % (11.0-16.0); White Blood Count 5.4 X10*3/uL (4.8-10.8)
[2023-12-31 12:54] LABS: Alanine Aminotransferase 14 U/L (0-40); Albumin Level 4.2 g/dL (3.5-5.0); Alkaline Phosphatase 87 U/L (39-117); Anion Gap 11 (12-20); Aspartate Amino Transferase 18 U/L (5-37); Blood Urea Nitrogen 27 mg/dL (9-16); Calcium 9.6 mg/dL (8.4-10.2); Carbon Dioxide 29 mmol/L (22-29); Chloride 107 mmol/L (96-108); Estimated Glomerular Filt Rate 35; Glucose Random 107 mg/dL (60-115); Potassium 4.1 mmol/L (3.3-5.1); Sodium 143 mmol/L (135-145); Total Protein 7.4 g/dL (6.5-8.0)
== END 2023-12-31 10:00 | disposition home or self-care (01) ==
LOC: HO.LAB 09:59
PROVIDERS: PCP Family Medicine; Visit Provider Student in an Organized Health Care Education/Training Program
DX: L40.50 Arthropathic psoriasis, unspecified (principal); Z79.899 Other long term (current) drug therapy
CPT/HCPCS: 36415; 80053; 85025; 99212

== ENCOUNTER 2024-04-29 10:44 | Outpatient (REF) | payer MEDICAID, SELFPAY ==
[2024-04-29 11:50] LABS: MANUAL DIFF FLAG NO
[2024-04-29 12:18] LABS: Basophils Percent Auto 0.4 % (0-2); Eosinophils Absolute Auto 0.1 X10*3/uL (0.0-0.4); Eosinophils Percent Auto 2.8 % (0-4); Hematocrit 39.8 % (42.0-52.0); Hemoglobin 13.7 g/dl (14.0-18.0); Imm Gran Abs Auto 0.02 X10*3/uL (0.00-0.03); Imm Gran Pct Auto 0.4 % (0.0-0.4); Lymphocytes Percent Auto 21.8 % (20-40); Mean Corpuscular HGB Conc 34.4 g/dl (31.0-36.0); Mean Corpuscular Hemoglobin 30.2 pg (27.0-33.0); Mean Corpuscular Volume 87.9 fL (80.0-98.0); Mean Platelet Volume 11.7 fL (9.4-12.4); Monocytes Absolute Auto 0.3 X10*3/uL (0.1-1.2); Monocytes Percent Auto 5.8 % (2-11); Neutrophils Absolute Auto 3.2 x10*3/uL (2.0-8.3); Neutrophils Percent Auto 68.8 % (45-73); Platelet Count 147 X10*3/uL (160-400); Red Blood Count 4.53 X10*6/uL (4.60-5.80); Red Cell Distribution Width 12.1 % (11.0-16.0); White Blood Count 4.6 X10*3/uL (4.8-10.8)
[2024-04-29 12:25] LABS: Alanine Aminotransferase 15 U/L (0-40); Albumin Level 3.9 g/dL (3.5-5.0); Alkaline Phosphatase 90 U/L (39-117); Anion Gap 13 (12-20); Aspartate Amino Transferase 19 U/L (5-37); Bilirubin Total 0.8 mg/dL (0.0-1.0); Blood Urea Nitrogen 24 mg/dL (9-16); C Reactive Protein 0.12 mg/dL (< or = 0.50); Calcium 9.5 mg/dL (8.4-10.2); Carbon Dioxide 28 mmol/L (22-29); Chloride 107 mmol/L (96-108); Estimated Glomerular Filt Rate 32; Glucose Random 93 mg/dL (60-115); Potassium 3.8 mmol/L (3.3-5.1); Sodium 144 mmol/L (135-145); Total Protein 6.8 g/dL (6.5-8.0)
[2024-04-29 13:00] LABS: Erythrocyte Sedimentation Rate 9 MM/HR (0-15)
== END 2024-04-29 10:45 | disposition home or self-care (01) ==
LOC: HO.HHCL 10:44
PROVIDERS: Visit Provider Student in an Organized Health Care Education/Training Program
DX: L40.50 Arthropathic psoriasis, unspecified (principal)
CPT/HCPCS: 36415; 80053; 85025; 85652; 86140

== ENCOUNTER 2024-05-03 10:17 | Outpatient (AMB) | payer MEDICAID, SELFPAY ==
--- NOTE | 2024-05-03 10:34 | A.OFFVIS_ITS ---
Vital Signs 05/03/24 10:39 Height 5 ft 3 in Weight 111 lb 15.917 oz BMI 19.8 BP 134/82 Blood Pressure Location Rt brachial Position Sitting Pulse 69 Pulse Source Pulse Oximeter Pulse Oximetry (%) 98 Oxygen Delivery Method Room Air Intake Visit Reasons: PsA Intake Note: Patient presents for PsA. Allergies bictegravir [BICTEGRAVIR] Adverse Reaction (Unknown, Verified 05/03/24 10:38) Fatigued dapsone [DAPSONE] Adverse Reaction (Unknown, Verified 05/03/24 10:38) G6PD DEFICIENT methotrexate [METHOTREXATE] Adverse Reaction (Unknown, Verified 05/03/24 10:38) HIGH LFT's, Elevated LFTs Sulfa (Sulfonamide Antibiotics) [SULFA (SULFONAMIDE ANTIBIOTICS)] Adverse Reaction (Unknown, Verified 05/03/24 10:38) G6PD DEFICIENT sulfamethoxazole [From BACTRIM] Adverse Reaction (Unknown, Verified 05/03/24 10:38) G6PD Deficient, elevated LFTs trimethoprim [From BACTRIM] Adverse Reaction (Unknown, Verified 05/03/24 10:38) G6PD DEFICIENT emtricitabine [From Biktarvy] Adverse Reaction (Verified 05/03/24 10:38) Fatigued tenofovir [From Biktarvy] Adverse Reaction (Verified 05/03/24 10:38) Fatigued Medication List - Last Reconciled 05/03/24 by Vel Tate MD buprenorphine-naloxone 8-2 mg (Suboxone) 1 strip sublingual BID darunavir-cobicistat 800-150 mg-mg (Prezcobix) 1 tab PO BEDTIME dolutegravir (Tivicay) 50 mg PO DAILY Humira(CF) (adalimumab) 40 mg (0.4 mL) subcut Q2W NS levetiracetam (Keppra) 500 mg PO Q12H naloxone 4 mg/actuation (Narcan) 1 spray intranasal PRN pyridoxine (vitamin B6) 100 mg PO DAILY 90 days HPI Comments Details: Patient is a 58yoM with psoriatic arthritis who presents for follow-up. He also has history of HIV on HAART, hepatitis-B and C, pancytopenia, CKD On Humira every other week. Well tolerated. States that he has been having pains in the joints of his fingers, knuckles, wrists, slightly worse on the right. States that the Humira works well for about 6-7 days that starts wearing off. Has been having joint pains for the last 4-5 months. [facility] Medical History Arthritis Unintentional weight loss Poor dentition Failure to thrive History of COVID-19 Epigastric pain Methadone maintenance therapy patient Venous stasis of both lower extremities Compensated HCV cirrhosis Chronic, continuous use of opioids Psoriatic arthritis Chronic kidney disease, stage 3 Chronic hepatitis B Chronic hepatitis C G6PD deficiency HIV (human immunodeficiency virus infection) Surgical History History of removal of cyst No significant past surgical history Social History Alcohol intake: never Patient Tobacco Use Status: Former Tobacco user Substance Use Type: Marijuana Review of Systems Musc Reports arthralgias and Reports tingling Neuro Reports tingling and Reports paresthesias Physical Exam Vital Signs: Last Vital Signs Pulse 69 05/03/24 10:39 BP 134/82 05/03/24 10:39 Pulse Ox 98 05/03/24 10:39 Oxygen Delivery Method Room Air 05/03/24 10:39 BMI result Body Mass Index 19.8 Const General: cooperative, healthy appearing and comfortable Nutritional Appearance: thin Orientation/consciousness: patient oriented x3 Limitations: no limitations HEENT Head: Yes normocephalic and Yes atraumatic Mouth: moist mucous membranes Resp Effort & Inspection: normal respiratory effort and able to speak in complete sentences Skin General skin exam: no rashes or lesions noted Neuro General: patient oriented x3 Extrem Other: Chronic deformities of both hands Mild tenderness at the left wrist without swelling Mild right 5th MCP tenderness Bilateral 2nd to 5th PIP tenderness Significant limited flexion at the PIP is bilaterally normal range of motion of both elbows and shoulders Nail pitting of left foot 4th and 5th toes Assessment & Plan Assessment & Plan (1) Psoriatic arthritis: Comment: MTX Dc due to transaminitis In 2013 he was cleared by ID to start Biologic therapy. Started Arava in 2014 and then Enbrel was added in Aug 2016 because of worsening skin rash. Stopped Enbrel in January 2018 Humira started December 2021 with ID clearance Code(s): L40.50 - Arthropathic psoriasis, unspecified Category: Medical Plan: This is a 58-year-old male with psoriasis and psoriatic arthritis who presents for follow-up. He also has history of HIV on HAART, hepatitis-B, hepatitis-C, CKD, pancytopenia. Follows up regularly with Infectious Disease. He remains on Humira 40 mg every other week. Over the last 4-5 months patient has been having more joint pains. He feels that he Humira works well for about 6-7 days then it starts wearing off. On exam he has multiple tender joints. I will check anti adalimumab antibodies. Discussed with patient, I would like to advance Humira to 40 mg once weekly. If this is denied by insurance, Taltz can be pursued Labs before next visit in 3 months (2) High risk medication use: Code(s): Z79.899 - Other alf (current) drug therapy Category: Medical Plan: Side effects of Humira were discussed with the patient in detail including incre ased risk of infection, demyelinating disease, reactivation of latent TB, possible increased risk of solid and skin tumors. Patient fully aware. Advised patient to seek medical care [facility] if patient has an infection and advised patient to stop the medication until the infection is resolved. Plan I spent 27 minutes reviewing patient's chart, evaluating patient, ordering diagnostic workup, counseling patient and documenting in the chart Orders: Orders Other Ref Test - [facility] [place] Z51.81 - Encounter for therapeutic drug level monitoring, Z79.620 - buttermaker (current) use of immunosuppressive biologic Coding Level of Care Code Est Pt Level 4 (94902) Diagnoses Psoriatic arthritis L40.50 High risk medication use Z79.899
[2024-05-03 10:39] VITALS: BP 134/82; PULSE 69; O2SAT 98; BMI 19.8
== END 2024-05-03 11:15 | disposition home or self-care (01) ==
PROVIDERS: PCP Family Medicine; Referring Provider Family Medicine; Visit Provider Student in an Organized Health Care Education/Training Program
DX: L40.50 Arthropathic psoriasis, unspecified (principal); Z79.899 Other long term (current) drug therapy
CPT/HCPCS: 99214

== ENCOUNTER → 2024-05-03 10:17 | Outpatient (BNVA) | payer MEDICAID, SELFPAY | PROVIDERS: PCP Family Medicine; Visit Provider Student in an Organized Health Care Education/Training Program ==

== ENCOUNTER 2024-05-03 11:21 | Outpatient (REF) | payer MEDICAID, SELFPAY | END 2024-05-03 11:22 | disposition home or self-care (01) | LOC: HO.10HDL 11:21 | PROVIDERS: Visit Provider Student in an Organized Health Care Education/Training Program | DX: L40.50 Arthropathic psoriasis, unspecified (principal); Z79.620 Long term (current) use of immunosuppressive biologic | CPT/HCPCS: 80145; 83520; 99212 ==

== ENCOUNTER 2024-08-19 19:43 | Emergency (ER) | payer MEDICAID, SELFPAY ==
--- NOTE | 2024-08-19 | ECG_ITS ---
Test Reason : CHEST PAIN Blood Pressure : / mmHG Vent. Rate : 077 BPM Atrial Rate : 077 BPM P-R Int : 156 ms QRS Dur : 088 ms QT Int : 372 ms P-R-T Axes : 060 -48 -07 degrees QTc Int : 420 ms Normal sinus rhythm Left axis deviation Abnormal ECG When compared with ECG of 08-FEB-2023 09:48, Criteria for Inferior infarct are no longer Present Inverted T waves have replaced nonspecific T wave abnormality in Inferior leads Referred By: Generic ED Physician Electronically Signed By:NANCY FERMIN MD
[2024-08-19 19:45] VITALS: BP 181/108; PULSE 82; O2SAT 98
[2024-08-19 19:50] VITALS: BMI 21.5
[2024-08-19 19:54] VITALS: BP 166/101; PULSE 78; RESP 18; TEMP 36.9; O2SAT 98
[2024-08-19 20:09] LABS: Hemoglobin 14.1 g/dl (14.0-18.0); Mean Corpuscular Volume 87.6 fL (80.0-98.0); PLT CLUMP 1; SCAN SMEAR FLAG 1
[2024-08-19 20:11] LABS: Basophils Percent Auto 0.2 % (0-2); Eosinophils Absolute Auto 0.1 X10*3/uL (0.0-0.4); Eosinophils Percent Auto 1.9 % (0-4); Hematocrit 39.7 % (42.0-52.0); Imm Gran Abs Auto 0.01 X10*3/uL (0.00-0.03); Imm Gran Pct Auto 0.2 % (0.0-0.4); Lymphocytes Absolute Auto 0.7 X10*3/uL (1.2-4.9); Mean Corpuscular HGB Conc 35.5 g/dl (31.0-36.0); Mean Corpuscular Hemoglobin 31.1 pg (27.0-33.0); Mean Platelet Volume 11.4 fL (9.4-12.4); Monocytes Absolute Auto 0.3 X10*3/uL (0.1-1.2); Monocytes Percent Auto 5.7 % (2-11); Neutrophils Absolute Auto 3.7 x10*3/uL (2.0-8.3); Red Blood Count 4.53 X10*6/uL (4.60-5.80); Red Cell Distribution Width 12.1 % (11.0-16.0)
[2024-08-19 20:22] LABS: MANUAL DIFF FLAG NO; Platelet Count 129 X10*3/uL (160-400); White Blood Count 4.7 X10*3/uL (4.8-10.8)
[2024-08-19 20:30] LABS: Alanine Aminotransferase 15 U/L (0-40); Albumin Level 3.9 g/dL (3.5-5.0); Alkaline Phosphatase 84 U/L (39-117); Anion Gap 9 (12-20); Aspartate Amino Transferase 20 U/L (5-37); Bilirubin Total 0.9 mg/dL (0.0-1.0); Blood Urea Nitrogen 25 mg/dL (9-16); Calcium 8.6 mg/dL (8.4-10.2); Carbon Dioxide 28 mmol/L (22-29); Chloride 108 mmol/L (96-108); Creatinine Clr Calc Pharmacy 30.6; Estimated Glomerular Filt Rate 33; Glucose Random 120 mg/dL (60-115); Lipase 31 U/L (8-78); Magnesium 2.1 mg/dL (1.6-2.6); Potassium 3.5 mmol/L (3.3-5.1); Sodium 141 mmol/L (135-145); Total Protein 6.8 g/dL (6.5-8.0)
[2024-08-19 20:38] LABS: Troponin-I High Sensitivity 7.1 ng/L (<3.5-35.0)
--- NOTE | 2024-08-19 22:39 | ED.CHESTPAIN ---
HPI - Chest Pain General Chief Complaint: Chest Pain Stated Complaint: CHEST PAIN 30 MINS Time Seen by Provider: 08/19/24 22:20 Source: patient Mode of arrival: ambulatory Limitations: no limitations History of Present Illness ED Provider: HPI narrative: Patient's history of HIV undetectable viral load, CKD anxiety apparently had coffee earlier started having palpitation on arrival patient's heart rate was 78 complaining of slight discomfort in the left side of the chest felt nauseated no vomiting at this time patient does not have any symptoms on arrival patient's blood pressure was slightly elevated to 166/101 patient does not have any history of hypertension no history of coronary artery disease Related Data Home Medications ?Medication ?Instructions ?Recorded ?Confirmed dolutegravir 50 mg tablet (Tivicay) 50 mg PO DAILY 07/19/20 04/17/23 buprenorphine 8 mg-naloxone 2 mg 1 strip sublingual BID 01/25/21 04/17/23 sublingual film (Suboxone) darunavir 800 mg-cobicistat 150 mg 1 tab PO BEDTIME 11/25/21 04/17/23 tablet (Prezcobix) naloxone 4 mg/actuation nasal 1 spray intranasal PRN 11/25/21 04/17/23 spray (Narcan) Previous Rx's ?Medication ?Instructions ?Recorded levetiracetam 500 mg tablet 500 mg PO Q12H #60 tabs 02/08/23 (Keppra) pyridoxine (vitamin B6) 100 mg 100 mg PO DAILY 90 days #90 tabs 05/04/23 tablet Humira(CF) 40 mg/0.4 mL 40 mg (0.4 mL) subcut QWEEK #4 ea 05/03/24 subcutaneous syringe kit (adalimumab) amlodipine 5 mg tablet 5 mg PO DAILY #90 tabs 08/19/24 Allergies Allergy/AdvReac Type Severity Reaction Status Date / Time bictegravir [BICTEGRAVIR] AdvReac Unknown Fatigued Verified 08/19/24 19:51 dapsone [DAPSONE] AdvReac Unknown G6PD Verified 08/19/24 19:51 DEFICIENT methotrexate [METHOTREXATE] AdvReac Unknown HIGH Verified 08/19/24 19:51 LFT's, Elevated LFTs Sulfa (Sulfonamide AdvReac Unknown G6PD Verified 08/19/24 19:51 Antibiotics) DEFICIENT [SULFA (SULFONAMIDE ANTIBIOTICS)] sulfamethoxazole AdvReac Unknown G6PD Verified 08/19/24 19:51 [From BACTRIM] Deficient, elevated LFTs trimethoprim [From BACTRIM] AdvReac Unknown G6PD Verified 08/19/24 19:51 DEFICIENT acetaminophen [From Tylenol] AdvReac Gastrointestinal Verified 08/19/24 19:52 Upset emtricitabine [From Biktarvy] AdvReac Fatigued Verified 08/19/24 19:51 ibuprofen AdvReac Gastrointestinal Verified 08/19/24 19:52 Upset tenofovir [From Biktarvy] AdvReac Fatigued Verified 08/19/24 19:51 Review of Systems Review of Systems: Yes all other systems are reviewed and are negative PMFSH Past Medical History Medical History Arthritis Unintentional weight loss Poor dentition Failure to thrive History of COVID-19 Epigastric pain Methadone maintenance therapy patient Venous stasis of both lower extremities Compensated HCV cirrhosis Chronic, continuous use of opioids Psoriatic arthritis Chronic kidney disease, stage 3 Chronic hepatitis B Chronic hepatitis C G6PD deficiency HIV (human immunodeficiency virus infection) Surgical History History of removal of cyst No significant past surgical history Social History Social History Alcohol intake: never Patient Tobacco Use Status: Former Tobacco user Substance Use Type: Marijuana Advance Directives: No Advance Directives Information Provided: Yes Do you have a plan to hurt others: No Plan Physical Exam Vital Signs: Vital Signs: Last Vital Signs Temp 98.5 F 08/19/24 23:29 Pulse 73 08/19/24 23:29 Resp 12 08/19/24 23:29 BP 169/108 H 08/19/24 23:29 Pulse Ox 97 08/19/24 23:29 O2 Del Method Room Air 08/19/24 23:29 BMI result Body Mass Index 21.5 Appearance: Alert. Oriented X3. No acute distress. Eyes: PERRLA, No Nystagmus ENT: Pharynx normal. Oral Mucosa moist Neck: Normal inspection. Neck supple. CVS: Normal heart rate and rhythm. Pulses normal. Respiratory: No respiratory distress. Equal air entry bilateral, no wheezing/rales/rhonchi Abdomen: Soft and nontender. Bowel sounds are present, no mass palpable, no CVA tenderness Skin: Skin warm and dry. Normal skin color. Normal skin turgor. Extremities: No lower extremity edema. No calf tenderness Neuro: Oriented X 3. No motor deficit. No sensory deficit.No cerebellar signs , cranial nerves II-XII intact Medications Administered Discontinued Medications Generic Name Dose Route Start Last Admin Trade Name Freq PRN Reason Stop Dose Admin Amlodipine Besylate 5 mg 08/19/24 23:10 08/19/24 23:26 Amlodipine Besylate 5 Mg Tablet PO 08/19/24 23:11 5 mg ONCE ONE Administration Protocol Medical Decision Making Medical Decision Making [facility] Narrative: Patient with anxiety with palpitation with chest pain with no previous coronary artery disease cardiac enzymes EKG negative patient is feeling much better during stay in the ER discharge patient home advised to follow with PCP Differential Diagnosis Differential Diagnoses: The differential diagnosis associated with the presentation includes ACS/costochondritis/anxiety Lab Data [facility] Lab Attestation statement: I reviewed the patient's lab results. 08/19/24 19:55 08/19/24 19:55 Labs: Lab Results 08/19/24 Range/Units 19:55 WBC 4.7 L (4.8-10.8) X10*3/uL RBC 4.53 L (4.60-5.80) X10*6/uL Hgb 14.1 (14.0-18.0) g/dl Hct 39.7 L (42.0-52.0) % MCV 87.6 (80.0-98.0) fL MCH 31.1 (27.0-33.0) pg MCHC 35.5 (31.0-36.0) g/dl RDW 12.1 (11.0-16.0) % Plt Count 129 L (160-400) X10*3/uL MPV 11.4 (9.4-12.4) fL Immature Gran % (Auto) 0.2 (0.0-0.4) % Neut % (Auto) 77.0 H (45-73) % Lymph % (Auto) 15.0 L (20-40) % [place] % (Auto) 5.7 (2-11) % Eos % (Auto) 1.9 (0-4) % Baso % (Auto) 0.2 (0-2) % Lymph # (Auto) 0.7 L (1.2-4.9) X10*3/uL [place] # (Auto) 0.3 (0.1-1.2) X10*3/uL Eos # (Auto) 0.1 (0.0-0.4) X10*3/uL Baso # (Auto) 0.0 (0.0-0.2) X10*3/uL Abs Immat Gran (auto) 0.01 (0.00-0.03) X10*3/uL Absolute Neuts (auto) 3.7 (2.0-8.3) x10*3/uL Absolute Nucleated RBC 0.000 (0.0-0.012) X10*3/uL Nucleated RBC % (auto) 0.0 (0.0-0.2) /100WBC Sodium 141 (135-145) mmol/L Potassium 3.5 (3.3-5.1) mmol/L Chloride 108 (96-108) mmol/L Carbon Dioxide 28 (22-29) mmol/L Anion Gap 9 L (12-20) BUN 25 H (9-16) mg/dL Creatinine 2.08 H (0.5-1.4) mg/dL Estim Creat Clear Calc 30.6 Estimated GFR 33 Random Glucose 120 H (60-115) mg/dL Calcium 8.6 D (8.4-10.2) mg/dL Magnesium 2.1 (1.6-2.6) mg/dL Total Bilirubin 0.9 (0.0-1.0) mg/dL AST 20 (5-37) U/L ALT 15 (0-40) U/L Alkaline Phosphatase 84 (39-117) U/L Troponin I High Sens 7.1 (<3.5-35.0) ng/L Total Protein 6.8 (6.5-8.0) g/dL Albumin 3.9 (3.5-5.0) g/dL Lipase 31 (8-78) U/L Independent Interpretation I performed an independent interpretation of an: EKG Interpretation: Normal sinus rhythm heart rate 77 beats per minute normal interval left axis deviation no acute ST-T changes no acute ischemia Discharge Plan Discharge Clinical Impression: Atypical chest pain, Hypertension Patient Disposition: Home, Self-Care Instructions: Chest Pain (DC), Hypertension (ED) Additional Instructions: You have elevated blood pressure you need medication, Start taking medication for high blood pressure Normal blood pressure should be less than 135/85 Decrease salt intake Follow up with your PCP Avoid caffeine drinks Prescriptions: New amlodipine 5 mg tablet 5 mg PO DAILY Qty: 90 0RF No Action buprenorphine-naloxone [Suboxone] 8-2 mg film 1 strip sublingual BID levetiracetam [Keppra] 500 mg tablet 500 mg PO Q12H Qty: 60 0RF Tivicay 50 mg tablet 50 mg PO DAILY Prezcobix 800-150 mg-mg tablet 1 tab PO BEDTIME naloxone [Narcan] 4 mg/actuation spray,non-aerosol 1 spray intranasal PRN pyridoxine (vitamin B6) 100 mg tablet 100 mg PO DAILY 90 Days Qty: 90 2RF Humira(CF) 40 mg/0.4 mL syringe kit 40 mg subcut QWEEK Qty: 4 2RF Interventions: ED Discharge Assessment Last Done: 08/19/24 23:29 Discharge Date/Time: 08/19/24 23:29 Print Language: Sri Lankan
[2024-08-19 23:23] VITALS: BP 169/108; PULSE 73; RESP 12; TEMP 36.9; O2SAT 97
[2024-08-19] MEDS: amLODIPine Besylate 5 MG TABLET PO (23:26)
[2024-08-19 23:29] VITALS: BP 169/108; PULSE 73; RESP 12; TEMP 36.9; O2SAT 97
== END 2024-08-19 23:29 | disposition home or self-care (01) ==
PROVIDERS: Emergency Provider Internal Medicine; PCP Family Medicine
DX: R07.89 Other chest pain (principal); I10 Essential (primary) hypertension; B20 Human immunodeficiency virus [HIV] disease; B18.2 Chronic viral hepatitis C; B18.1 Chronic viral hepatitis B without delta-agent; K74.69 Other cirrhosis of liver; Z92.25 Personal history of immunosuppression therapy; F11.20 Opioid dependence, uncomplicated; Z79.899 Other long term (current) drug therapy
CPT/HCPCS: 36415; 80053; 83690; 83735; 84484; 85025; 93005; 99283; 99284

== ENCOUNTER → 2024-08-19 19:50 | Outpatient (BNV) | payer MEDICAID, SELFPAY | PROVIDERS: Emergency Provider Internal Medicine; PCP Family Medicine; Visit Provider Internal Medicine Cardiovascular Disease | DX: R07.9 Chest pain, unspecified (principal); R94.31 Abnormal electrocardiogram [ECG] [EKG] | CPT/HCPCS: 93010 ==

== ENCOUNTER 2024-08-25 09:06 | Outpatient (REF) | payer MEDICAID, SELFPAY ==
[2024-08-25 11:34] LABS: MANUAL DIFF FLAG NO
[2024-08-25 11:39] LABS: Basophils Percent Auto 0.5 % (0-2); Eosinophils Absolute Auto 0.2 X10*3/uL (0.0-0.4); Eosinophils Percent Auto 3.3 % (0-4); Hematocrit 44.1 % (42.0-52.0); Hemoglobin 15.2 g/dl (14.0-18.0); Imm Gran Abs Auto 0.02 X10*3/uL (0.00-0.03); Imm Gran Pct Auto 0.3 % (0.0-0.4); Lymphocytes Absolute Auto 1.3 X10*3/uL (1.2-4.9); Lymphocytes Percent Auto 22.1 % (20-40); Mean Corpuscular HGB Conc 34.5 g/dl (31.0-36.0); Mean Corpuscular Hemoglobin 30.3 pg (27.0-33.0); Mean Corpuscular Volume 87.8 fL (80.0-98.0); Mean Platelet Volume 11.8 fL (9.4-12.4); Monocytes Absolute Auto 0.4 X10*3/uL (0.1-1.2); Monocytes Percent Auto 6.1 % (2-11); Neutrophils Absolute Auto 4.1 x10*3/uL (2.0-8.3); Neutrophils Percent Auto 67.7 % (45-73); Platelet Count 173 X10*3/uL (160-400); Red Blood Count 5.02 X10*6/uL (4.60-5.80); Red Cell Distribution Width 12.3 % (11.0-16.0); White Blood Count 6.1 X10*3/uL (4.8-10.8)
[2024-08-25 13:04] LABS: Syphilis Screen Nonreactive (Nonreactive)
[2024-08-25 13:05] LABS: HBc Num1 0.75 S/CO (0.00-0.79); Hepatitis A Antibody IgG REACTIVE (Nonreactive); Hepatitis B Core Antibody Nonreactive (Nonreactive); Hepatitis B Surface Antigen Negative (Negative); ~Hepatitis A Antibody IgG 11.97 S/CO (0.00-0.99); ~Hepatitis B Surface Antibody NONREACTIVE (Nonreactive)
[2024-08-25 13:09] LABS: Alanine Aminotransferase 18 U/L (0-40); Albumin Level 4.1 g/dL (3.5-5.0); Alkaline Phosphatase 89 U/L (39-117); Anion Gap 12 (12-20); Aspartate Amino Transferase 23 U/L (5-37); Bilirubin Total 1.2 mg/dL (0.0-1.0); Blood Urea Nitrogen 29 mg/dL (9-16); Calcium 9.2 mg/dL (8.4-10.2); Carbon Dioxide 29 mmol/L (22-29); Chloride 105 mmol/L (96-108); Cholesterol 208 mg/dL (<200); Estimated Glomerular Filt Rate 37; Glucose Random 164 mg/dL (60-115); HDL Cholesterol 55 mg/dL (>40); LDL Cholesterol Calculated 139 mg/dL (<100); Potassium 3.5 mmol/L (3.3-5.1); Sodium 142 mmol/L (135-145); Total Protein 7.1 g/dL (6.5-8.0); Triglycerides 70 mg/dL (<150)
[2024-08-25 13:16] LABS: Reflex LDLD? No
[2024-08-25 13:43] LABS: CT PCR NOT DETECTED (Not Detect.); NG PCR NOT DETECTED (Not Detect.)
[2024-08-28 13:18] LABS: HCV Log PCR <1.18 NOT DETECTED Log IU/mL (NOT DETECTED); HIV RNA PCR Qn Copies 97 copies/mL (NOT DETECTED); HIV RNA PCR Qn Log Copies 1.99 (NOT DETECTED); HepC Viral Load <15 NOT DETECTED IU/mL (NOT DETECTED)
[2024-08-28 14:59] LABS: TS Negative Control Passed; TS Panel A 0; TS Panel B 0; TS Positive Control Passed; TSpotTB Negative (Negative)
[2024-08-29 15:57] LABS: Absolute CD3 Count 933 cells/uL (840-3060); Absolute CD4 Count 379 cells/uL (490-1740); Absolute CD8 Count 554 cells/uL (180-1170); Absolute Lymphocytes 1241 cells/uL (850-3900); CD4 CD8 Ratio 0.68 (0.86-5.00); Percent CD3 Cells 75 % (57-85); Percent CD4 Cells 31 % (30-61); Percent CD8 Cells 45 % (12-42)
== END 2024-08-25 09:07 | disposition home or self-care (01) ==
LOC: HO.HHCL 09:06
PROVIDERS: Visit Provider Internal Medicine
DX: Z21 Asymptomatic human immunodeficiency virus [HIV] infection status (principal)
CPT/HCPCS: 80053; 80061; 85025; 86359; 86360; 86481; 86704; 86706; 86708; 86780; 87340; 87491; 87522; 87536; 87591

== ENCOUNTER 2024-10-07 11:31 | Outpatient (REF) | payer MEDICAID, SELFPAY ==
--- OUTSIDE RECORDS SUMMARY | 2024-10-07 12:37 | XMS_ITS | Clinical Summary ---
Author Organization [facility] Address [address] [place] [address] Phone Care Team Providers Care Medical Instructor Name Role Phone Michell Mallory MD Primary Care Provider [phone] Allergies Active Allergy Reactions Criticality Noted Date Comments Dapsone Other (see comments) 03/19/2022 Methotrexate Other (see comments) 03/19/2022 Sulfa Antibiotics Other (see comments) 03/19/20 Sulfamethoxazole-Trimethoprim Other (see comments) 03/19/2022 Trimethoprim Other (see comments) 03/19/2022 Medications Suboxone 8-2 MG [address] SL film Place 1 Film under the tongue 2 (two) times a day 01/29/2022 Active Tivicay 50 MG tablet Take 1 tablet by mouth at bed time 02/17/2022 Active fluticasone (FLONASE) 50 MCG/ACT nasal spray if needed 12/10/2021 Active Humira 40 MG/0.4ML Prefilled Syringe Kit 03/06/2023 Active darunavir-cobici stat (Prezcobix) 800-150 MG per tablet Take 1 tablet by mouth 1 (one) time each day Do not crush or chew. Active Active Problems Problem Noted Date Diagnosed Date Chronic kidney disease, stage 4 (severe) 023 Chronic kidney disease stage 3 03/19/2022 Proteinuria 03/19/2022 Hypertensive chronic kidney disease, unspecified, with chronic kidney disease stage I through stage IV, or unspecified 03/19/2022 Renal stone 03/19/2022 Family History Medical History Relation Comments Cancer Mother Hypertension Mother Relation Status Comments Father Mother Alive Social History Tobacco Use Types Packs/Day Years Used Date Smoking Tobacco: Never Smokeless Tobacco: Never Alcohol Use Standard Drinks/Week Comments Never 0 (1 standard drink = 0.6 oz pur e alcohol) Sex and Gender Information Value Date Recorded Sex Assigned at Not on file Legal Sex Male 5:00 PM EST Gender Identity Not on file Sexual Orientation Not on file Last Filed Vital Signs Vital Sign Reading Time Taken Comments Blood Pressure 130/90 12/21/2023 1:59 PM EDT Pulse 76 12/21/2023 1:59 PM EDT Temperature - - Respiratory Rate - - Oxygen Saturation - - Inhaled Oxygen Concentration - - Weight 49 kg (108 lb) 12/21/2023 1:59 PM EDT Height 165.1 cm (5' 5 ) 12/23/2019 12:00 PM EDT Body Mass Index 17.97 12/23/2019 12:00 PM EDT Plan of Treatment Health Maintenance Due Date Last Done Comments Pneumococcal Vaccine: Pediat rics (0 to 5 Years) and At-Risk Patients (6 to 64 Years) (1 of 2 - PCV) 1971 Hepatitis B Vaccine (1 of 3 - 19+ 3-dose series) 06/13 Colorectal Cancer Screening: Annual FOBT 2014 Colorectal Cancer Screening: Colonoscopy 2014 Colorectal Cancer Screening: Sigmoidoscopy 2014 Influenza Vaccine (#1) 2024 Insurance MEDICAID [place] Care Teams Medical Instructor Relationship Specialty Start Date End Date Michell Mallory MD PCP - General Family Medicine 11/25/22
--- OUTSIDE RECORDS SUMMARY | 2024-10-07 12:37 | XMS_ITS | Encounter Summary ---
Author Organization [facility] Address [address] [place] [address] Phone Care Team Providers Care Gas Line Installer Name Role Phone Michell Mallory MD Primary Care Provider [phone] Encounter Details Date Type Department Care Team (Late st Contact Info) Description 12/21/2023 Office Communication [facility] [address] [place] [address] Shawnee Pulliam ARNP [address] [facility] [address] [place] [address] Social History Tobacco Use Types Packs/Day Years Used Date Smoking Tobacco: Never Smokeless Tobacco: Never Alcohol Use Standard Drinks/Week Comments Never 0 (1 standard drink = 0.6 oz pur e alcohol) Sex and Gender Information Value Date Recorded Sex Assigned at Not on file Legal Sex Male 5:00 PM EST Gender Identity Not on file Sexual Orientation Not on file documented as of this encounter Plan of Treatment Not on file documented as of this encounter Visit Diagnoses Not on filedocumented in this encounter Care Teams Gas Line Installer Relationship Specialty Start Date End Date Michell Mallory MD PCP - General Family Medicine 11/25/22 documented as of this encounter
[2024-10-07 13:51] LABS: Appearance Urine Clear; Color Urine Yellow; Glucose Urine UA 500 mg/dL (Negative); Leukocyte Esterase Urine Negative (Negative); Nitrite Urine Negative (Negative); PH 5.5 (5.0-9.0); UMIC TRIGGER UACC YES; Urine Blood Trace (Negative); Urine Ketones Negative (Negative); Urine Protein 30 (1+) mg/dL (Neg-Trace)
[2024-10-07 13:55] LABS: Bacteria Urine None Seen (None Seen); Hyaline Casts Urine 0-2 /LPF (0-2); RBC Urine 0-2 /HPF (0-2); Squamous Epithelial Cell Urine 0-2 /HPF (0-2); WBC Urine 0-5 /HPF (0-5)
[2024-10-07 16:41] LABS: CT PCR NOT DETECTED (Not Detect.); NG PCR NOT DETECTED (Not Detect.)
[2024-10-16 19:33] LABS: HIV 1 Integrase Proviral DNA DETECTED; HIV 1 PR RT Proviral DNA DETECTED
== END 2024-10-07 11:32 | disposition home or self-care (01) ==
LOC: HO.HHCL 11:31
PROVIDERS: Family Medicine; Visit Provider Internal Medicine
DX: Z21 Asymptomatic human immunodeficiency virus [HIV] infection status (principal); R10.9 Unspecified abdominal pain; R30.0 Dysuria
CPT/HCPCS: 36415; 81001; 87491; 87591; 87900; 87901; 87906

== ENCOUNTER 2024-10-28 11:02 | Outpatient (AMB) | payer MEDICAID, SELFPAY ==
--- NOTE | 2024-10-28 11:26 | HO.NEPHOV_ITS ---
Vital Signs 10/28/24 11:28 Height 5 ft 4 in Weight 120 lb BMI 20.6 BP 170/110 H Blood Pressure Location Rt brachial Position Sitting Pulse 94 Pulse Source Pulse Oximeter Pulse Oximetry (%) 99 Oxygen Delivery Method Room Air Intake Visit Reasons: ENP: Proteinuria-Conf Supervisor Tubing Required: No Accompanied by: Other Relationship Allergies bictegravir [BICTEGRAVIR] Adverse Reaction (Unknown, Verified 10/28/24 11:28) Fatigued dapsone [DAPSONE] Adverse Reaction (Unknown, Verified 10/28/24 11:28) G6PD DEFICIENT methotrexate [METHOTREXATE] Adverse Reaction (Unknown, Verified 10/28/24 11:28) HIGH LFT's, Elevated LFTs Sulfa (Sulfonamide Antibiotics) [SULFA (SULFONAMIDE ANTIBIOTICS)] Adverse Reaction (Unknown, Verified 10/28/24 11:28) G6PD DEFICIENT sulfamethoxazole [From BACTRIM] Adverse Reaction (Unknown, Verified 10/28/24 11:28) G6PD Deficient, elevated LFTs trimethoprim [From BACTRIM] Adverse Reaction (Unknown, Verified 10/28/24 11:28) G6PD DEFICIENT acetaminophen [From Tylenol] Adverse Reaction (Verified 10/28/24 11:28) Gastrointestinal Upset emtricitabine [From Biktarvy] Adverse Reaction (Verified 10/28/24 11:28) Fatigued ibuprofen Adverse Reaction (Verified 10/28/24 11:28) Gastrointestinal Upset tenofovir [From Biktarvy] Adverse Reaction (Verified 10/28/24 11:28) Fatigued HPI Comments Details: I had the pleasure of seeing Joe in follow-up of his chronic kidney disease. He was accompanied by his brother during this visit. He has history of her HIV and is on anti retrovirals. He is known to have proteinuria. He is hypertensive and ihad been on amlodipine, which he takes only intermittently. He denies any active ongoing drug use. His psoriasis is under control. He does not have any nausea, vomiting, diarrhea, shortness of breath, pedal edema, paroxysmal nocturnal dyspnea, orthopnea, hematuria, renal stones. He denies taking nonsteroidal anti-inflammatories on a regular basis. His recent serum creatinine is 1.88. [facility] Medical History Arthritis Unintentional weight loss Poor dentition Failure to thrive History of COVID-19 Epigastric pain Methadone maintenance therapy patient Venous stasis of both lower extremities Compensated HCV cirrhosis Chronic, continuous use of opioids Psoriatic arthritis Chronic kidney disease, stage 3 Chronic hepatitis B Chronic hepatitis C G6PD deficiency HIV (human immunodeficiency virus infection) Surgical History History of removal of cyst No significant past surgical history Social History Alcohol intake: never Patient Tobacco Use Status: Former Tobacco user Substance Use Type: Marijuana Review of Systems Const All systems reviewed & are unremarkable except as noted in HPI and below Physical Exam Vital Signs: Last Vital Signs Pulse 94 10/28/24 11:28 BP 170/110 H 10/28/24 11:28 Pulse Ox 99 10/28/24 11:28 Oxygen Delivery Method Room Air 10/28/24 11:28 BMI result Body Mass Index 20.6 Const General: comfortable and no acute distress Orientation/consciousness: patient oriented x3 HEENT Head: Yes normocephalic Mouth: Normal oral and palatal mucosa present Eyes EOM: EOMs intact bilaterally Neck Neck: Yes supple Resp Auscultation: clear to auscultation bilaterally Cardio Jugular venous distension: no JVD Rate: regular rate GI Palpation (GI): Soft to palpation Auscultation: normal bowel sounds Skin General skin exam: no rashes or lesions noted Neuro General: patient oriented x3 and moves all extremities Extrem General: Yes no pedal edema Results Reviewed Nephrology Results: Hgb 15.2 g/dl (14.0-18.0) 08/25/24 WBC 6.1 X10*3/uL (4.8-10.8) 08/25/24 Plt Count 173 X10*3/uL (160-400) 08/25/24 Sodium 142 mmol/L (135-145) 08/25/24 Potassium 3.5 mmol/L (3.3-5.1) 08/25/24 Chloride 105 mmol/L (96-108) 08/25/24 Carbon Dioxide 29 mmol/L (22-29) 08/25/24 BUN 29 mg/dL (9-16) H 08/25/24 Creatinine 1.88 mg/dL (0.5-1.4) H 08/25/24 Calcium 9.2 mg/dL (8.4-10.2) 08/25/24 Urine Protein 30 (1+) mg/dL (Neg-Trace) H 10/07/24 Assessment & Plan Assessment & Plan (1) Renal cyst: Code(s): N28.1 - Cyst of kidney, acquired Category: Medical (2) Atrophic kidney: Comment: Left atrophic Kidney Code(s): N26.1 - Atrophy of kidney (terminal) Category: Medical (3) Nephrolithiasis: Code(s): N20.0 - Calculus of kidney Category: Medical (4) CKD stage 3b, GFR 30-44 ml/min: Code(s): N18.32 - Chronic kidney disease, stage 3b Category: Medical Plan 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 His renal functions are fairly stable . He has non nephrotic range proteinuria. He has HIV and is on antiretrovirals. He does not have any renal calculi now. He maintains good hydration. I have ordered follow-up blood work for CKD. I restarted him on amlodipine to maintain his blood pressure at goal of less than 130/80 mmHg. It will be a challenge initiating him on MARTÍNEZ inhibitor or ARB due to his compliance problem. I did not make any other medication changes today. Follow-up blood work ordered and answered all questions. Orders: Orders Vitamin D 25-OH Total 3 Months N18.32 - Chronic kidney disease, stage 3b, N20.0 - Calculus of kidney, N26.1 - Atrophy of kidney (terminal), N28.1 - Cyst of kidney, acquired Electrolytes 3 Months N18.32 - Chronic kidney disease, stage 3b, N20.0 - Calculus of kidney, N26.1 - Atrophy of kidney (terminal), N28.1 - Cyst of kidney, acquired IRON PROFILE 3 Months N18.32 - Chronic kidney disease, stage 3b, N20.0 - Calculus of kidney, N26.1 - Atrophy of kidney (terminal), N28.1 - Cyst of kidney, acquired Complete Blood Count Auto Diff 3 Months N18.32 - Chronic kidney disease, stage 3b, N20.0 - Calculus of kidney, N26.1 - Atrophy of kidney (terminal), N28.1 - Cyst of kidney, acquired Parathyroid Hormone Intact 3 Months N18.32 - Chronic kidney disease, stage 3b, N20.0 - Calculus of kidney, N26.1 - Atrophy of kidney (terminal), N28.1 - Cyst of kidney, acquired Phosphorus 3 Months N18.32 - Chronic kidney disease, stage 3b, N20.0 - Calculus of kidney, N26.1 - Atrophy of kidney (terminal), N28.1 - Cyst of kidney, acquired Creatinine 3 Months N18.32 - Chronic kidney disease, stage 3b, N20.0 - Calculus of kidney, N26.1 - Atrophy of kidney (terminal), N28.1 - Cyst of kidney, acquired Blood Urea Nitrogen 3 Months N18.32 - Chronic kidney disease, stage 3b, N20.0 - Calculus of kidney, N26.1 - Atrophy of kidney (terminal), N28.1 - Cyst of kidney, acquired Calcium 3 Months N18.32 - Chronic kidney disease, stage 3b, N20.0 - Calculus of kidney, N26.1 - Atrophy of kidney (terminal), N28.1 - Cyst of kidney, acquired Ferritin 3 Months N18.32 - Chronic kidney disease, stage 3b, N20.0 - Calculus of kidney, N26.1 - Atrophy of kidney (terminal), N28.1 - Cyst of kidney, acquired Medications: New amlodipine 5 mg PO DAILY 30 tabs 3RF Coding Level of Care Code Est Pt Level 4 (24576) Diagnoses Renal cyst N28.1 Atrophic kidney N26.1 Nephrolithiasis N20.0 CKD stage 3b, GFR 30-44 ml/min N18.32
[2024-10-28 11:28] VITALS: BP 170/110; PULSE 94; O2SAT 99; BMI 20.6
--- OUTSIDE RECORDS SUMMARY | 2024-10-28 12:42 | XMS_ITS | Clinical Summary ---
Author Organization [facility] Address [address] [place] [address] Phone Care Team Providers Care Adhesive Bonding Machine Operator Name Role Phone Michell Mallory MD Primary Care Provider [phone] Allergies Active Allergy Reactions Criticality Noted Date [...] (#1) 2024 Insurance MEDICAID [place] Care Teams Adhesive Bonding Machine Operator Relationship Specialty Start Date End Date Michell Mallory MD PCP - General Family Medicine 11/25/22
--- OUTSIDE RECORDS SUMMARY | 2024-10-28 12:42 | XMS_ITS | Encounter Summary ---
Author Organization [facility] Address [address] [place] [address] Phone Care Team Providers Care Informatics Scientist Name Role Phone Michell Mallory MD Primary Care Provider Encounter Details Date Type Department Care Team (Late st Contact Info) Description 12/21/2023 Office Communication [facility] [address] [place] [address] Shawnee Pulliam ARNP [address] [facility] [address] [place] [address] Social History Tobacco Use Types [...] on filedocumented in this encounter Care Teams Informatics Scientist Relationship Specialty Start Date End Date Michell Mallory MD PCP - General Family Medicine 11/25/22 documented as of this encounter
== END 2024-10-28 11:48 | disposition home or self-care (01) ==
LOC: HO.HKA 11:02
PROVIDERS: PCP Family Medicine; Visit Provider Internal Medicine Nephrology
DX: N28.1 Cyst of kidney, acquired (principal); N26.1 Atrophy of kidney (terminal); N20.0 Calculus of kidney; N18.32 Chronic kidney disease, stage 3b
CPT/HCPCS: 99214

== ENCOUNTER → 2024-10-28 11:02 | Outpatient (BNVA) | payer MEDICAID, SELFPAY | PROVIDERS: PCP Family Medicine; Visit Provider Internal Medicine Nephrology | DX: N28.1 Cyst of kidney, acquired (principal); N26.1 Atrophy of kidney (terminal); N20.0 Calculus of kidney; N18.32 Chronic kidney disease, stage 3b; Z79.899 Other long term (current) drug therapy | CPT/HCPCS: 99212 ==

== ENCOUNTER 2024-11-24 08:19 | Outpatient (REF) | payer MEDICAID, SELFPAY ==
--- OUTSIDE RECORDS SUMMARY | 2024-11-24 08:29 | XMS_ITS | Clinical Summary ---
Author Organization [facility] Address [address] [place] [address] Phone Care Team Providers Care Bankruptcy Manager Name Role Phone Michell Mallory MD Primary Care Provider [phone] Allergies Active Allergy Reactions Criticality Noted Date [...] Due Date Last Done Comments Pneumococcal Vaccine: Peds ( 0 to 5 Years) and At-Risk Patients (6 to 49 Years) (1 of 2 - PCV) 1971 Hepatitis B Vaccine (1 of 3 - 19+ 3-dose series) 06/13 Colorectal Cancer Screening: Annual FOBT 2014 Colorectal Cancer Screening: Colonoscopy 2014 Colorectal Cancer Screening: Sigmoidoscopy 2014 Influenza Vaccine (Season Ended) 2025 Insurance Medicaid [place] Care Teams Bankruptcy Manager Relationship Specialty Start Date End Date Michell Mallory MD PCP - General Family Medicine 11/25/22
--- OUTSIDE RECORDS SUMMARY | 2024-11-24 08:29 | XMS_ITS | Encounter Summary ---
Author Organization [facility] Address [address] [place] [address] Phone Care Team Providers Care Lending Activities Supervisor Name Role Phone Michell Mallory MD Primary Care Provider [phone] Encounter Details Date Type Department Care Team (Late st Contact Info) Description 12/21/2023 Office Communication [facility] [address] [place] [address] Shawnee Pulliam ARNP [address] [facility] [address] [place] [address] Social History Tobacco Use Types [...] on filedocumented in this encounter Care Teams Lending Activities Supervisor Relationship Specialty Start Date End Date Michell Mallory MD PCP - General Family Medicine 11/25/22 documented as of this encounter
[2024-11-24 11:43] LABS: MANUAL DIFF FLAG NO
[2024-11-24 12:07] LABS: Basophils Percent Auto 0.4 % (0-2); Eosinophils Absolute Auto 0.2 X10*3/uL (0.0-0.4); Eosinophils Percent Auto 2.9 % (0-4); Hematocrit 43.7 % (42.0-52.0); Hemoglobin 15.1 g/dl (14.0-18.0); Imm Gran Abs Auto 0.01 X10*3/uL (0.00-0.03); Imm Gran Pct Auto 0.2 % (0.0-0.4); Lymphocytes Absolute Auto 1.3 X10*3/uL (1.2-4.9); Lymphocytes Percent Auto 25.1 % (20-40); Mean Corpuscular HGB Conc 34.6 g/dl (31.0-36.0); Mean Corpuscular Hemoglobin 30.2 pg (27.0-33.0); Mean Corpuscular Volume 87.4 fL (80.0-98.0); Mean Platelet Volume 11.9 fL (9.4-12.4); Monocytes Absolute Auto 0.3 X10*3/uL (0.1-1.2); Monocytes Percent Auto 5.6 % (2-11); Neutrophils Absolute Auto 3.4 x10*3/uL (2.0-8.3); Neutrophils Percent Auto 65.8 % (45-73); Platelet Count 156 X10*3/uL (160-400); Red Cell Distribution Width 12.3 % (11.0-16.0); White Blood Count 5.2 X10*3/uL (4.8-10.8)
[2024-11-24 12:13] LABS: Alanine Aminotransferase 15 U/L (0-40); Albumin Level 4.1 g/dL (3.5-5.0); Alkaline Phosphatase 90 U/L (39-117); Anion Gap 13 (12-20); Aspartate Amino Transferase 21 U/L (5-37); Bilirubin Total 1.2 mg/dL (0.0-1.0); Blood Urea Nitrogen 27 mg/dL (9-16); Calcium 9.3 mg/dL (8.4-10.2); Carbon Dioxide 30 mmol/L (22-29); Chloride 106 mmol/L (96-108); Estimated Glomerular Filt Rate 35; Glucose Random 94 mg/dL (60-115); Potassium 3.9 mmol/L (3.3-5.1); Sodium 145 mmol/L (135-145); Total Protein 6.7 g/dL (6.5-8.0)
[2024-11-24 12:28] LABS: Prostate Specific Antigen 0.24 ng/mL (<0.05-4.0)
[2024-11-25 14:57] LABS: HIV RNA PCR Qn Copies 390 copies/mL (NOT DETECTED); HIV RNA PCR Qn Log Copies 2.59 (NOT DETECTED)
[2024-11-29 12:43] LABS: Absolute CD3 Count 845 cells/uL (840-3060); Absolute CD4 Count 331 cells/uL (490-1740); Absolute CD8 Count 518 cells/uL (180-1170); Absolute Lymphocytes 1196 cells/uL (850-3900); CD4 CD8 Ratio 0.64 (0.86-5.00); Percent CD3 Cells 71 % (57-85); Percent CD4 Cells 28 % (30-61); Percent CD8 Cells 43 % (12-42)
== END 2024-11-24 08:20 | disposition home or self-care (01) ==
LOC: HO.HHCL 08:19
PROVIDERS: Nurse Practitioner Family; Visit Provider Internal Medicine
DX: Z21 Asymptomatic human immunodeficiency virus [HIV] infection status (principal); Z12.5 Encounter for screening for malignant neoplasm of prostate
CPT/HCPCS: 36415; 80053; 84153; 85025; 86359; 86360; 87536

== ENCOUNTER 2024-11-25 12:19 | Outpatient (AMB) | payer MEDICAID, SELFPAY ==
[2024-11-25 12:32] VITALS: BP 168/102; PULSE 89; O2SAT 97; BMI 20.8
--- NOTE | 2024-11-25 12:32 | HO.NEPHOV_ITS ---
Vital Signs 11/25/24 12:32 Height 5 ft 4 in Weight 121 lb 2 oz BMI 20.8 BP 168/102 H Blood Pressure Location Lt brachial Position Sitting Pulse 89 Pulse Source Pulse Oximeter Pulse Oximetry (%) 97 Oxygen Delivery Method Room Air Intake Visit Reasons: 1 MO FU/ Double book only per Dr Intake Note: Patient is having pain on RT upper quadrant, he things is his liver. Almost 1 month with pain. Latex Thread Machine Operator Required: No Accompanied by: Self / Same As Patient Allergies bictegravir [BICTEGRAVIR] Adverse Reaction (Unknown, Verified 11/25/24 12:36) Fatigued dapsone [DAPSONE] Adverse Reaction (Unknown, Verified 11/25/24 12:36) G6PD DEFICIENT methotrexate [METHOTREXATE] Adverse Reaction (Unknown, Verified 11/25/24 12:36) HIGH LFT's, Elevated LFTs Sulfa (Sulfonamide Antibiotics) [SULFA (SULFONAMIDE ANTIBIOTICS)] Adverse Reaction (Unknown, Verified 11/25/24 12:36) G6PD DEFICIENT sulfamethoxazole [From BACTRIM] Adverse Reaction (Unknown, Verified 11/25/24 12:36) G6PD Deficient, elevated LFTs trimethoprim [From BACTRIM] Adverse Reaction (Unknown, Verified 11/25/24 12:36) G6PD DEFICIENT acetaminophen [From Tylenol] Adverse Reaction (Verified 11/25/24 12:36) Gastrointestinal Upset emtricitabine [From Biktarvy] Adverse Reaction (Verified 11/25/24 12:36) Fatigued ibuprofen Adverse Reaction (Verified 11/25/24 12:36) Gastrointestinal Upset tenofovir [From Biktarvy] Adverse Reaction (Verified 11/25/24 12:36) Fatigued Do you need a note to return to daycare/school/sports/work: No HPI Comments Details: I had the pleasure of seeing Joe in follow-up of his chronic kidney disease. He has history of her HIV and is on anti retrovirals. He is known to have proteinuria. He is hypertensive and had been on amlodipine, which he takes only intermittently. He denies any active ongoing drug use. His psoriasis is under control. He does not have any nausea, vomiting, diarrhea, shortness of breath, pedal edema, paroxysmal nocturnal dyspnea, orthopnea, hematuria, renal stones. He denies taking nonsteroidal anti-inflammatories on a regular basis. His recent serum creatinine is 1.88. [facility] Medical History Arthritis Unintentional weight loss Poor dentition Failure to thrive History of COVID-19 Epigastric pain Methadone maintenance therapy patient Venous stasis of both lower extremities Compensated HCV cirrhosis Chronic, continuous use of opioids Psoriatic arthritis Chronic kidney disease, stage 3 Chronic hepatitis B Chronic hepatitis C G6PD deficiency HIV (human immunodeficiency virus infection) Surgical History History of removal of cyst No significant past surgical history Social History Alcohol intake: never Patient Tobacco Use Status: Former Tobacco user Substance Use Type: Marijuana Review of Systems Const All systems reviewed & are unremarkable except as noted in HPI and below Physical Exam Vital Signs: Last Vital Signs Pulse 89 11/25/24 12:32 BP 168/102 H 11/25/24 12:32 Pulse Ox 97 11/25/24 12:32 Oxygen Delivery Method Room Air 11/25/24 12:32 BMI result Body Mass Index 20.8 Const General: comfortable and no acute distress Orientation/consciousness: patient oriented x3 HEENT Head: Yes normocephalic Mouth: Normal oral and palatal mucosa present Eyes EOM: EOMs intact bilaterally Neck Neck: Yes supple Resp Auscultation: clear to auscultation bilaterally Cardio Jugular venous distension: no JVD Rate: regular rate GI Palpation (GI): Soft to palpation Auscultation: normal bowel sounds General: Yes no CVA tenderness Back/Spine/Pelvis Back: no CVA tenderness Skin General skin exam: no rashes or lesions noted Neuro General: patient oriented x3 and moves all extremities Extrem General: Yes no pedal edema Results Reviewed Nephrology Results: Hgb 15.1 g/dl (14.0-18.0) 11/24/24 WBC 5.2 X10*3/uL (4.8-10.8) 11/24/24 Plt Count 156 X10*3/uL (160-400) L 11/24/24 Sodium 145 mmol/L (135-145) 11/24/24 Potassium 3.9 mmol/L (3.3-5.1) 11/24/24 Chloride 106 mmol/L (96-108) 11/24/24 Carbon Dioxide 30 mmol/L (22-29) H 11/24/24 BUN 27 mg/dL (9-16) H 11/24/24 Creatinine 1.95 mg/dL (0.5-1.4) H 11/24/24 Calcium 9.3 mg/dL (8.4-10.2) 11/24/24 Urine Protein 30 (1+) mg/dL (Neg-Trace) H 10/07/24 Assessment & Plan Assessment & Plan (1) CKD stage 3b, GFR 30-44 ml/min: Code(s): N18.32 - Chronic kidney disease, stage 3b Category: Medical (2) Renal cyst: Code(s): N28.1 - Cyst of kidney, acquired Category: Medical (3) Atrophic kidney: Comment: Left atrophic Kidney Code(s): N26.1 - Atrophy of kidney (terminal) Category: Medical (4) Nephrolithiasis: Code(s): N20.0 - Calculus of kidney Category: Medical Plan 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 His renal functions are fairly stable . He has non nephrotic range proteinuria. He has HIV and is on antiretrovirals. He does not have any renal calculi now. He maintains good hydration. I increased his amlodipine to 10 mg to maintain his blood pressure at goal of less than 130/80 mmHg. It will be a challenge initiating him on MARTÍNEZ inhibitor or ARB due to his compliance problem. I did not make any other medication changes today. I answered all questions. Medications: Changed From amlodipine 5 mg PO DAILY 30 tabs 3RF To amlodipine 10 mg (2 x 5 mg) PO DAILY 30 tabs 3RF Coding Level of Care Code Est Pt Level 4 (56084) Diagnoses CKD stage 3b, GFR 30-44 ml/min N18.32 Renal cyst N28.1 Atrophic kidney N26.1 Nephrolithiasis N20.0
--- OUTSIDE RECORDS SUMMARY | 2024-11-25 13:02 | XMS_ITS | Clinical Summary ---
Author Organization [facility] Address [address] [place] [address] Phone Care Team Providers Care Binding Cutter Name Role Phone Michell Mallory MD Primary Care Provider [phone] Allergies Active Allergy Reactions Criticality Noted Date [...] Influenza Vaccine (Season Ended) 2025 Insurance Medicaid [place] Care Teams Binding Cutter Relationship Specialty Start Date End Date Michell Mallory MD PCP - General Family Medicine 11/25/22
--- OUTSIDE RECORDS SUMMARY | 2024-11-25 13:02 | XMS_ITS | Encounter Summary ---
Author Organization [facility] Address [address] [place] [address] Phone Care Team Providers Care Summer Nanny Name Role Phone Michell Mallory MD Primary Care Provider [phone] Encounter Details Date Type Department Care Team (Late st Contact Info) Description 12/21/2023 Office Communication [facility] [address] [place] [address] Shawnee Pulliam ARNP [address] [facility] [facility] [address] [place] [address] Social History Tobacco Use Types [...] on filedocumented in this encounter Care Teams Summer Nanny Relationship Specialty Start Date End Date Michell Mallory MD PCP - General Family Medicine 11/25/22 documented as of this encounter
== END 2024-11-25 12:55 | disposition home or self-care (01) ==
LOC: HO.HKA 12:19
PROVIDERS: PCP Family Medicine; Visit Provider Internal Medicine Nephrology
DX: N18.32 Chronic kidney disease, stage 3b (principal); N28.1 Cyst of kidney, acquired; N26.1 Atrophy of kidney (terminal); N20.0 Calculus of kidney
CPT/HCPCS: 99214

== ENCOUNTER → 2024-11-25 12:19 | Outpatient (BNVA) | payer MEDICAID, SELFPAY | PROVIDERS: PCP Family Medicine; Visit Provider Internal Medicine Nephrology | DX: I12.9 Hypertensive chronic kidney disease with stage 1 through stage 4 chronic kidney disease, or unspecified chronic kidney disease (principal); N18.32 Chronic kidney disease, stage 3b; B20 Human immunodeficiency virus [HIV] disease; R80.9 Proteinuria, unspecified; N28.1 Cyst of kidney, acquired; N26.1 Atrophy of kidney (terminal); N20.0 Calculus of kidney | CPT/HCPCS: 99212 ==

== ENCOUNTER 2024-12-30 11:33 | Outpatient (AMB) | payer MEDICAID, SELFPAY ==
--- OUTSIDE RECORDS SUMMARY | 2024-12-30 11:48 | XMS_ITS | Clinical Summary ---
Author Organization [facility] Address [address] [place] [address] Phone Care Team Providers Care Special Effects Artist Name Role Phone Michell Malolry MD Primary Care Provider [phone] Allergies Active Allergy Reactions Criticality Noted Date [...] Health Maintenance Due Date Last Done Comments Hepatitis B Vaccine (1 of 3 - 19+ 3-dose series) 06/13 Pneumococcal Vaccine: 50+ Years (1 of 2 - PCV) 984 Colorectal Cancer Screening: Annual FOBT 2014 Colorectal Cancer Screening: Colonoscopy 2014 Colorectal Cancer Screening: Sigmoidoscopy 2014 Influenza Vaccine (Season Ended) 2025 Insurance Medicaid [place] Medicaid [place] Care Teams Special Effects Artist Relationship Specialty Start Date End Date Michell Mallory MD PCP - General Family Medicine 11/25/22
--- OUTSIDE RECORDS SUMMARY | 2024-12-30 11:48 | XMS_ITS | Encounter Summary ---
Author Organization [facility] Address [address] [place] [address] Phone Care Team Providers Care Emc Storage Architect Name Role Phone Michell Mallory MD Primary Care Provider [phone] Encounter Details Date Type Department Care Team (Late st Contact Info) Description 12/21/2023 Office Communication [facility] [address] [place] [address] Shawnee Pulliam ARNP [address] [facility] [address] [place] [address] Social History Tobacco Use Types [...] on filedocumented in this encounter Care Teams Emc Storage Architect Relationship Specialty Start Date End Date Michell Mallory MD PCP - General Family Medicine 11/25/22 documented as of this encounter
--- NOTE | 2024-12-30 12:12 | HO.NEPHOV ---
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 Accompanied by: Self / Same As Patient Allergies bictegravir [BICTEGRAVIR] Adverse Reaction (Unknown, Verified 12/30/24 12:13) Fatigued dapsone [DAPSONE] Adverse Reaction (Unknown, Verified 12/30/24 12:13) G6PD DEFICIENT methotrexate [METHOTREXATE] Adverse Reaction (Unknown, Verified 12/30/24 12:13) HIGH LFT's, Elevated LFTs Sulfa (Sulfonamide Antibiotics) [SULFA (SULFONAMIDE ANTIBIOTICS)] Adverse Reaction (Unknown, Verified 12/30/24 12:13) G6PD DEFICIENT sulfamethoxazole [From BACTRIM] Adverse Reaction (Unknown, Verified 12/30/24 12:13) G6PD Deficient, elevated LFTs trimethoprim [From BACTRIM] Adverse Reaction (Unknown, Verified 12/30/24 12:13) G6PD DEFICIENT acetaminophen [From Tylenol] Adverse Reaction (Verified 12/30/24 12:13) Gastrointestinal Upset emtricitabine [From Biktarvy] Adverse Reaction (Verified 12/30/24 12:13) Fatigued ibuprofen Adverse Reaction (Verified 12/30/24 12:13) Gastrointestinal Upset tenofovir [From Biktarvy] Adverse Reaction (Verified 12/30/24 12:13) Fatigued HPI Comments Details: I had the pleasure of seeing Joe in follow-up of his chronic kidney disease. He has history of her HIV and is on anti retrovirals. He is known to have proteinuria. He is hypertensive and had been on amlodipine, which he takes only intermittently. He denies any active ongoing drug use. His psoriasis is under control. He does not have any nausea, vomiting, diarrhea, shortness of breath, pedal edema, paroxysmal nocturnal dyspnea, orthopnea, hematuria, renal stones. He denies taking nonsteroidal anti-inflammatories on a regular basis. His recent serum creatinine is 1.95. His BP is still not at goal even after increasing the dose of Amlodipine. [facility] Medical History Arthritis Unintentional weight loss Poor dentition Failure to thrive History of COVID-19 Epigastric pain Methadone maintenance therapy patient Venous stasis of both lower extremities Compensated HCV cirrhosis Chronic, continuous use of opioids Psoriatic arthritis Chronic kidney disease, stage 3 Chronic hepatitis B Chronic hepatitis C G6PD deficiency HIV (human immunodeficiency virus infection) Surgical History History of removal of cyst No significant past surgical history Social History Alcohol intake: never Patient Tobacco Use Status: Former Tobacco user Substance Use Type: Marijuana Review of Systems Const All systems reviewed & are unremarkable except as noted in HPI and below Physical Exam Vital Signs: Last Vital Signs Pulse 89 12/30/24 12:13 BP 150/90 H 12/30/24 12:13 Pulse Ox 97 12/30/24 12:13 Oxygen Delivery Method Room Air 12/30/24 12:13 BMI result Body Mass Index 21.0 Const General: comfortable and no acute distress Orientation/consciousness: patient oriented x3 HEENT Head: Yes normocephalic Mouth: Normal oral and palatal mucosa present Eyes EOM: EOMs intact bilaterally Neck Neck: Yes supple Resp Auscultation: clear to auscultation bilaterally Cardio Jugular venous distension: no JVD Rate: regular rate GI Palpation (GI): Soft to palpation Auscultation: normal bowel sounds General: Yes no CVA tenderness Back/Spine/Pelvis Back: no CVA tenderness Skin General skin exam: no rashes or lesions noted Neuro General: patient oriented x3 and moves all extremities Extrem General: Yes no pedal edema Results Reviewed Nephrology Results: Hgb 15.1 g/dl (14.0-18.0) 11/24/24 WBC 5.2 X10*3/uL (4.8-10.8) 11/24/24 Plt Count 156 X10*3/uL (160-400) L 11/24/24 Sodium 145 mmol/L (135-145) 11/24/24 Potassium 3.9 mmol/L (3.3-5.1) 11/24/24 Chloride 106 mmol/L (96-108) 11/24/24 Carbon Dioxide 30 mmol/L (22-29) H 11/24/24 BUN 27 mg/dL (9-16) H 11/24/24 Creatinine 1.95 mg/dL (0.5-1.4) H 11/24/24 Calcium 9.3 mg/dL (8.4-10.2) 11/24/24 Urine Protein 30 (1+) mg/dL (Neg-Trace) H 10/07/24 Assessment & Plan Assessment & Plan (1) CKD stage 3b, GFR 30-44 ml/min: Code(s): N18.32 - Chronic kidney disease, stage 3b Category: Medical (2) Renal cyst: Code(s): N28.1 - Cyst of kidney, acquired Category: Medical (3) Atrophic kidney: Comment: Left atrophic Kidney Code(s): N26.1 - Atrophy of kidney (terminal) Category: Medical (4) Nephrolithiasis: Code(s): N20.0 - Calculus of kidney Category: Medical (5) Hypertension: Code(s): I10 - Essential (primary) hypertension Category: Medical Qualifiers: Hypertension type: secondary to other renal disorders Qualified Code(s): I15.1 - Hypertension secondary to other renal disorders Plan 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 His renal functions are fairly stable . He has non nephrotic range proteinuria. He has HIV and is on antiretrovirals. He does not have any renal calculi now. He maintains good hydration. I increased his amlodipine to 10 mg at the last visit to maintain his blood pressure at goal of less than 130/80 mmHg. His BP is still not at goal. I started him on Carvedilol 6.25 mg bid. It will be a challenge initiating him on MARTÍNEZ inhibitor or ARB due to his compliance problem. I did not make any other medication changes today. I answered all questions. Medications: New carvedilol 6.25 mg PO BID 60 tabs 4RF Coding Level of Care Code Est Pt Level 4 (70883) Diagnoses CKD stage 3b, GFR 30-44 ml/min N18.32 Renal cyst N28.1 Atrophic kidney N26.1 Nephrolithiasis N20.0 Hypertension secondary to other renal disorders I15.1 Hypertension type: secondary to other renal disorders
[2024-12-30 12:13] VITALS: BP 150/90; PULSE 89; O2SAT 97; BMI 21.0
== END 2024-12-30 12:22 | disposition home or self-care (01) ==
LOC: HO.HKA 11:34
PROVIDERS: PCP Family Medicine; Visit Provider Internal Medicine Nephrology
DX: N18.32 Chronic kidney disease, stage 3b (principal); N28.1 Cyst of kidney, acquired; N26.1 Atrophy of kidney (terminal); N20.0 Calculus of kidney; I15.1 Hypertension secondary to other renal disorders
CPT/HCPCS: 99214

== ENCOUNTER → 2024-12-30 11:33 | Outpatient (BNVA) | payer MEDICAID, SELFPAY | PROVIDERS: PCP Family Medicine; Visit Provider Internal Medicine Nephrology | DX: N18.32 Chronic kidney disease, stage 3b (principal); I15.1 Hypertension secondary to other renal disorders; N28.1 Cyst of kidney, acquired; N26.1 Atrophy of kidney (terminal); N20.0 Calculus of kidney | CPT/HCPCS: 99212 ==

== ENCOUNTER 2025-01-19 08:30 | Outpatient (REF) | payer MEDICAID, SELFPAY ==
--- OUTSIDE RECORDS SUMMARY | 2025-01-19 08:49 | XMS_ITS | Clinical Summary ---
Author Organization [facility] Address [address] [place] [address] Phone Care Team Providers Care Computer Systems Manager Name Role Phone Michell Mallory MD Primary Care Provider [phone] Allergies Active Allergy Reactions Criticality Noted Date [...] Insurance Medicaid [place] Medicaid [place] Care Teams Computer Systems Manager Relationship Specialty Start Date End Date Michell Mallory MD PCP - General Family Medicine 11/25/22
[2025-01-19 12:14] LABS: Anion Gap 11 (12-20); Blood Urea Nitrogen 25 mg/dL (9-16); Calcium 9.4 mg/dL (8.4-10.2); Carbon Dioxide 29 mmol/L (22-29); Chloride 107 mmol/L (96-108); Estimated Glomerular Filt Rate 40; Glucose Random 102 mg/dL (60-115); Potassium 3.7 mmol/L (3.3-5.1); Sodium 143 mmol/L (135-145)
[2025-01-20 14:54] LABS: HIV RNA PCR Qn Copies 54 copies/mL (NOT DETECTED); HIV RNA PCR Qn Log Copies 1.73 (NOT DETECTED)
== END 2025-01-19 08:31 | disposition home or self-care (01) ==
LOC: HO.HHCL 08:30
PROVIDERS: Visit Provider Internal Medicine
DX: R80.9 Proteinuria, unspecified (principal); Z21 Asymptomatic human immunodeficiency virus [HIV] infection status
CPT/HCPCS: 36415; 80048; 87536

== ENCOUNTER 2025-02-03 11:57 | Outpatient (AMB) | payer MEDICAID, SELFPAY ==
--- NOTE | 2025-02-03 12:02 | HO.NEPHOV_ITS ---
Vital Signs 02/03/25 12:04 Height 5 ft 4 in Weight 119 lb 2 oz BMI 20.4 BP 152/100 H Blood Pressure Location Lt brachial Position Sitting Pulse 96 Pulse Source Pulse Oximeter Pulse Oximetry (%) 95 Oxygen Delivery Method Room Air Intake Visit Reasons: 1mon follow-up No labs-Conf Under Seal Operator Required: No Accompanied by: Self / Same As Patient Allergies bictegravir (BICTEGRAVIR) Adverse Reaction (Unknown, Verified 02/03/25 12:03) Fatigued dapsone (DAPSONE) Adverse Reaction (Unknown, Verified 02/03/25 12:03) G6PD DEFICIENT methotrexate (METHOTREXATE) Adverse Reaction (Unknown, Verified 02/03/25 12:03) HIGH LFT's, Elevated LFTs Sulfa (Sulfonamide Antibiotics) (SULFA (SULFONAMIDE ANTIBIOTICS)) Adverse Reaction (Unknown, Verified 02/03/25 12:03) G6PD DEFICIENT sulfamethoxazole (From BACTRIM) Adverse Reaction (Unknown, Verified 02/03/25 12:03) G6PD Deficient, elevated LFTs trimethoprim (From BACTRIM) Adverse Reaction (Unknown, Verified 02/03/25 12:03) G6PD DEFICIENT acetaminophen (From Tylenol) Adverse Reaction (Verified 02/03/25 12:03) Gastrointestinal Upset emtricitabine (From Biktarvy) Adverse Reaction (Verified 02/03/25 12:03) Fatigued ibuprofen Adverse Reaction (Verified 02/03/25 12:03) Gastrointestinal Upset tenofovir (From Biktarvy) Adverse Reaction (Verified 02/03/25 12:03) Fatigued HPI Comments Details: I had the pleasure of seeing Joe in follow-up of his chronic kidney disease. He has history of her HIV and is on anti retrovirals. He is known to have proteinuria. He is hypertensive and had been on amlodipine, which he takes only intermittently. He denies any active ongoing drug use. His psoriasis is under control. He does not have any nausea, vomiting, diarrhea, shortness of breath, pedal edema, paroxysmal nocturnal dyspnea, orthopnea, hematuria, renal stones. He denies taking nonsteroidal anti-inflammatories on a regular basis. His recent serum creatinine is 1.95. His BP is still not at goal even after increasing the dose of Amlodipine and initiation of Carvedilol. He has not tolerated ACEI well in the past. [facility] Medical History Arthritis Unintentional weight loss Poor dentition Failure to thrive History of COVID-19 Epigastric pain Methadone maintenance therapy patient Venous stasis of both lower extremities Compensated HCV cirrhosis Chronic, continuous use of opioids Psoriatic arthritis Chronic kidney disease, stage 3 Chronic hepatitis B Chronic hepatitis C G6PD deficiency HIV (human immunodeficiency virus infection) Surgical History History of removal of cyst No significant past surgical history Social History Alcohol intake: never Patient Tobacco Use Status: Former Tobacco user Substance Use Type: Marijuana Review of Systems Const All systems reviewed & are unremarkable except as noted in HPI and below Physical Exam Vital Signs: Last Vital Signs Pulse 96 02/03/25 12:04 BP 152/100 H 02/03/25 12:04 Pulse Ox 95 02/03/25 12:04 Oxygen Delivery Method Room Air 02/03/25 12:04 BMI result Body Mass Index 20.4 Const Other: RA changes of the small joints General: comfortable and no acute distress Orientation/consciousness: patient oriented x3 HEENT Head: Yes normocephalic Mouth: Normal oral and palatal mucosa present Eyes EOM: EOMs intact bilaterally Neck Neck: Yes supple Resp Auscultation: clear to auscultation bilaterally Cardio Jugular venous distension: no JVD Rate: regular rate GI Palpation (GI): Soft to palpation Auscultation: normal bowel sounds General: Yes no CVA tenderness Back/Spine/Pelvis Back: no CVA tenderness Skin General skin exam: no rashes or lesions noted Neuro General: patient oriented x3 and moves all extremities Extrem General: Yes no pedal edema Results Reviewed Nephrology Results: Hgb, (14.0-18.0) 15.1 g/dl 11/24/24 WBC, (4.8-10.8) 5.2 X10*3/uL 11/24/24 Plt Count, (160-400) 156 X10*3/uL L 11/24/24 Sodium, (135-145) 143 mmol/L 01/19/25 Potassium, (3.3-5.1) 3.7 mmol/L 01/19/25 Chloride, (96-108) 107 mmol/L 01/19/25 Carbon Dioxide, (22-29) 29 mmol/L 01/19/25 BUN, (9-16) 25 mg/dL H 01/19/25 Creatinine, (0.5-1.4) 1.76 mg/dL H 01/19/25 Calcium, (8.4-10.2) 9.4 mg/dL 01/19/25 Urine Protein, (Neg-Trace) 30 (1+) mg/dL H 10/07/24 Renal US 11/04/23 Assessment & Plan Assessment & Plan (1) Hypertension: Code(s): I10 - Essential (primary) hypertension Category: Medical Qualifiers: Hypertension type: secondary to other renal disorders Qualified Code(s): I15.1 - Hypertension secondary to other renal disorders (2) Nephrolithiasis: Code(s): N20.0 - Calculus of kidney Category: Medical (3) Atrophic kidney: Comment: Left atrophic Kidney Code(s): N26.1 - Atrophy of kidney (terminal) Category: Medical (4) CKD stage 3b, GFR 30-44 ml/min: Code(s): N18.32 - Chronic kidney disease, stage 3b Category: Medical Plan 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 His renal functions are fairly stable . He has non nephrotic range proteinuria. He has HIV and is on antiretrovirals. He does not have any renal calculi now. He maintains good hydration. He is on amlodipine 10 mg as well as carvedilol 6.25 mg bid which I increased to 12.5 mg bid as his BP is still not at goal. It will be a challenge initiating him on MARTÍNEZ inhibitor or ARB due to his compliance problem. I did not make any other medication changes today. I answered all questions. Coding Level of Care Code Est Pt Level 4 (20938) Diagnoses Hypertension secondary to other renal disorders I15.1 Hypertension type: secondary to other renal disorders Nephrolithiasis N20.0 Atrophic kidney N26.1 CKD stage 3b, GFR 30-44 ml/min N18.32
[2025-02-03 12:04] VITALS: BP 152/100; PULSE 96; O2SAT 95; BMI 20.4
--- OUTSIDE RECORDS SUMMARY | 2025-02-03 12:12 | XMS_ITS | Clinical Summary ---
Author Organization [facility] Address [address] [place] [address] Phone Care Team Providers Care Decorator Street And Building Name Role Phone Michell Mallory MD Primary Care Provider [phone] Allergies Active Allergy Reactions Criticality Noted Date [...] (Season Ended) 2025 Insurance Medicaid [place] Medicaid [place] Care Teams Decorator [employer] Building Relationship Specialty Start Date End Date Michell Mallory MD PCP - General Family Medicine 11/25/22
== END 2025-02-03 12:14 | disposition home or self-care (01) ==
LOC: HO.HKA 11:58
PROVIDERS: PCP Family Medicine; Visit Provider Internal Medicine Nephrology
DX: I15.1 Hypertension secondary to other renal disorders (principal); N20.0 Calculus of kidney; N26.1 Atrophy of kidney (terminal); N18.32 Chronic kidney disease, stage 3b
CPT/HCPCS: 99214

== ENCOUNTER → 2025-02-03 11:57 | Outpatient (BNVA) | payer MEDICAID, SELFPAY | PROVIDERS: PCP Family Medicine; Visit Provider Internal Medicine Nephrology | DX: I15.1 Hypertension secondary to other renal disorders (principal); N18.32 Chronic kidney disease, stage 3b; N26.1 Atrophy of kidney (terminal); N20.0 Calculus of kidney | CPT/HCPCS: 99212 ==

== ENCOUNTER 2025-03-03 12:13 | Outpatient (AMB) | payer MEDICAID, SELFPAY ==
--- NOTE | 2025-03-03 12:14 | HO.NEPHOV ---
Vital Signs 03/03/25 12:17 Height 5 ft 4 in Weight 121 lb 8 oz BMI 20.9 BP 168/110 H Blood Pressure Location Lt brachial Position Sitting Pulse 97 Pulse Source Pulse Oximeter Pulse Oximetry (%) 96 Oxygen Delivery Method Room Air Intake Visit Reasons: mon follow-up/ Conf Health Care Analyst Required: Yes Health Care Analyst Language: Maid Supervisor Services: Health Care Analyst Offered & Declined ([facility] [place] Care Analyst [place] refused [place] Accompanied by: Self / Same As Patient Allergies bictegravir (BICTEGRAVIR) Adverse Reaction (Unknown, Verified 03/03/25 12:17) Fatigued dapsone (DAPSONE) Adverse Reaction (Unknown, Verified 03/03/25 12:17) G6PD DEFICIENT methotrexate (METHOTREXATE) Adverse Reaction (Unknown, Verified 03/03/25 12:17) HIGH LFT's, Elevated LFTs Sulfa (Sulfonamide Antibiotics) (SULFA (SULFONAMIDE ANTIBIOTICS)) Adverse Reaction (Unknown, Verified 03/03/25 12:17) G6PD DEFICIENT sulfamethoxazole (From BACTRIM) Adverse Reaction (Unknown, Verified 03/03/25 12:17) G6PD Deficient, elevated LFTs trimethoprim (From BACTRIM) Adverse Reaction (Unknown, Verified 03/03/25 12:17) G6PD DEFICIENT acetaminophen (From Tylenol) Adverse Reaction (Verified 03/03/25 12:17) Gastrointestinal Upset emtricitabine (From Biktarvy) Adverse Reaction (Verified 03/03/25 12:17) Fatigued ibuprofen Adverse Reaction (Verified 03/03/25 12:17) Gastrointestinal Upset tenofovir (From Biktarvy) Adverse Reaction (Verified 03/03/25 12:17) Fatigued HPI Comments Details: Joe was seen in follow-up of his chronic kidney disease and hypertension. He has history of her HIV and is on anti retrovirals. He is known to have proteinuria. He denies any active ongoing drug use. His psoriasis is under control. He does not have any nausea, vomiting, diarrhea, shortness of breath, pedal edema, paroxysmal nocturnal dyspnea, orthopnea, hematuria, renal stones. He denies taking nonsteroidal anti-inflammatories on a regular basis. His last serum creatinine was 1.76. His BP is still not at goal even after increasing the dose of medications. He has not tolerated ACEI well in the past. [facility] Medical History Arthritis Unintentional weight loss Poor dentition Failure to thrive History of COVID-19 Epigastric pain Methadone maintenance therapy patient Venous stasis of both lower extremities Compensated HCV cirrhosis Chronic, continuous use of opioids Psoriatic arthritis Chronic kidney disease, stage 3 Chronic hepatitis B Chronic hepatitis C G6PD deficiency HIV (human immunodeficiency virus infection) Surgical History History of removal of cyst No significant past surgical history Social History Alcohol intake: never Patient Tobacco Use Status: Former Tobacco user Substance Use Type: Marijuana Review of Systems Const All systems reviewed & are unremarkable except as noted in HPI and below Physical Exam Vital Signs: Last Vital Signs Pulse 97 03/03/25 12:17 BP 168/110 H 03/03/25 12:17 Pulse Ox 96 03/03/25 12:17 Oxygen Delivery Method Room Air 03/03/25 12:17 BMI result Body Mass Index 20.9 Const General: comfortable and no acute distress Orientation/consciousness: patient oriented x3 HEENT Head: Yes normocephalic Mouth: Normal oral and palatal mucosa present Eyes EOM: EOMs intact bilaterally Neck Neck: Yes supple Resp Auscultation: clear to auscultation bilaterally Cardio Jugular venous distension: no JVD Rate: regular rate GI Palpation (GI): Soft to palpation Auscultation: normal bowel sounds General: Yes no CVA tenderness Back/Spine/Pelvis Back: no CVA tenderness Skin General skin exam: no rashes or lesions noted Neuro General: patient oriented x3 and moves all extremities Extrem General: Yes no pedal edema Results Reviewed Nephrology Results: Hgb, (14.0-18.0) 15.1 g/dl 11/24/24 WBC, (4.8-10.8) 5.2 X10*3/uL 11/24/24 Plt Count, (160-400) 156 X10*3/uL L 11/24/24 Sodium, (135-145) 143 mmol/L 01/19/25 Potassium, (3.3-5.1) 3.7 mmol/L 01/19/25 Chloride, (96-108) 107 mmol/L 01/19/25 Carbon Dioxide, (22-29) 29 mmol/L 01/19/25 BUN, (9-16) 25 mg/dL H 01/19/25 Creatinine, (0.5-1.4) 1.76 mg/dL H 01/19/25 Calcium, (8.4-10.2) 9.4 mg/dL 01/19/25 Renal US 11/04/23 Assessment & Plan Assessment & Plan (1) Nephrolithiasis: Code(s): N20.0 - Calculus of kidney Category: Medical (2) Atrophic kidney: Comment: Left atrophic Kidney Code(s): N26.1 - Atrophy of kidney (terminal) Category: Medical (3) Renal cyst: Code(s): N28.1 - Cyst of kidney, acquired Category: Medical (4) CKD stage 3b, GFR 30-44 ml/min: Code(s): N18.32 - Chronic kidney disease, stage 3b Category: Medical (5) Hypertension: Code(s): I10 - Essential (primary) hypertension Category: Medical Qualifiers: Hypertension type: secondary to other renal disorders Qualified Code(s): I15.1 - Hypertension secondary to other renal disorders Plan 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 His renal functions are fairly stable . He has non nephrotic range proteinuria. He has HIV and is on antiretrovirals. He does not have any renal calculi now. He maintains good hydration. He is on amlodipine 10 mg as well as carvedilol 6.25 mg bid which I increased to 12.5 mg bid as his BP is still not at goal. It will be a challenge initiating him on MARTÍNEZ inhibitor or ARB due to his compliance problem. I shall consider switching his Amlodipine to Nifedipine at next visit if BP control remains sub optimally controlled. I did not make any other medication changes today. I answered all questions. Orders: Orders Electrolytes 1 Month I15.1 - Hypertension secondary to other renal disorders, N18.32 - Chronic kidney disease, stage 3b, N20.0 - Calculus of kidney, N26.1 - Atrophy of kidney (terminal), N28.1 - Cyst of kidney, acquired Creatinine 1 Month I15.1 - Hypertension secondary to other renal disorders, N18.32 - Chronic kidney disease, stage 3b, N20.0 - Calculus of kidney, N26.1 - Atrophy of kidney (terminal), N28.1 - Cyst of kidney, acquired Blood Urea Nitrogen 1 Month I15.1 - Hypertension secondary to other renal disorders, N18.32 - Chronic kidney disease, stage 3b, N20.0 - Calculus of kidney, N26.1 - Atrophy of kidney (terminal), N28.1 - Cyst of kidney, acquired Medications: Changed From carvedilol 6.25 mg PO BID 60 tabs 4RF To carvedilol 12.5 mg PO BID 90 days 180 tabs 4RF Refilled carvedilol 12.5 mg PO BID 180 tabs 4RF 90 days Coding Level of Care Code Est Pt Level 4 (82788) Diagnoses Nephrolithiasis N20.0 Atrophic kidney N26.1 Renal cyst N28.1 CKD stage 3b, GFR 30-44 ml/min N18.32 Hypertension secondary to other renal disorders I15.1 Hypertension type: secondary to other renal disorders
--- OUTSIDE RECORDS SUMMARY | 2025-03-03 12:15 | XMS_ITS | Clinical Summary ---
Author Organization [facility] Address [address] [place] [address] Phone Care Team Providers Care Museum Docent Name Role Phone Michell Mallory MD Primary Care Provider [phone] Allergies Active Allergy Reactions Criticality Noted Date [...] Cancer Screening: Sigmoidoscopy 2014 Influenza Vaccine (#1) 2025 Insurance Medicaid [place] Medicaid [place] Care Teams Museum Docent Relationship Specialty Start Date End Date Michell Mallory MD PCP - General Family Medicine 11/25/22
[2025-03-03 12:17] VITALS: BP 168/110; PULSE 97; O2SAT 96; BMI 20.9
== END 2025-03-03 12:26 | disposition home or self-care (01) ==
LOC: HO.HKA 12:13
PROVIDERS: PCP Family Medicine; Visit Provider Internal Medicine Nephrology
DX: N20.0 Calculus of kidney (principal); N26.1 Atrophy of kidney (terminal); N28.1 Cyst of kidney, acquired; N18.32 Chronic kidney disease, stage 3b; I15.1 Hypertension secondary to other renal disorders
CPT/HCPCS: 99214

== ENCOUNTER → 2025-03-03 12:13 | Outpatient (BNVA) | payer MEDICAID, SELFPAY | PROVIDERS: PCP Family Medicine; Visit Provider Internal Medicine Nephrology | DX: N18.32 Chronic kidney disease, stage 3b (principal); I15.1 Hypertension secondary to other renal disorders; N20.0 Calculus of kidney; N26.1 Atrophy of kidney (terminal); N28.1 Cyst of kidney, acquired | CPT/HCPCS: 99212 ==

== ENCOUNTER 2025-04-12 11:21 | Outpatient (AMB) | payer MEDICAID, SELFPAY ==
--- NOTE | 2025-04-12 11:22 | HO.NEPHOV_ITS ---
Vital Signs 04/12/25 11:23 Height 5 ft 4 in Weight 128 lb 2 oz BMI 22.0 BP 140/100 H Blood Pressure Location Lt brachial Position Sitting Pulse 98 Pulse Source Pulse Oximeter Pulse Oximetry (%) 95 Oxygen Delivery Method Room Air Intake Visit Reasons: 1 MO FU-LVM Cot Assembler Required: Yes Cot Assembler Language: Lens Engraver Services: Cot Assembler Offered & Declined ([facility] Cot Assembler services refused. ) Accompanied by: Self / Same As Patient Allergies bictegravir (BICTEGRAVIR) Adverse Reaction (Unknown, Verified 04/12/25 11:23) Fatigued dapsone (DAPSONE) Adverse Reaction (Unknown, Verified 04/12/25 11:23) G6PD DEFICIENT methotrexate (METHOTREXATE) Adverse Reaction (Unknown, Verified 04/12/25 11:23) HIGH LFT's, Elevated LFTs Sulfa (Sulfonamide Antibiotics) (SULFA (SULFONAMIDE ANTIBIOTICS)) Adverse Reaction (Unknown, Verified 04/12/25 11:23) G6PD DEFICIENT sulfamethoxazole (From BACTRIM) Adverse Reaction (Unknown, Verified 04/12/25 11:23) G6PD Deficient, elevated LFTs trimethoprim (From BACTRIM) Adverse Reaction (Unknown, Verified 04/12/25 11:23) G6PD DEFICIENT acetaminophen (From Tylenol) Adverse Reaction (Verified 04/12/25 11:23) Gastrointestinal Upset emtricitabine (From Biktarvy) Adverse Reaction (Verified 04/12/25 11:23) Fatigued ibuprofen Adverse Reaction (Verified 04/12/25 11:23) Gastrointestinal Upset tenofovir (From Biktarvy) Adverse Reaction (Verified 04/12/25 11:23) Fatigued HPI Comments Details: Joe was seen in follow-up of his chronic kidney disease and hypertension. He has history of her HIV and is on anti retrovirals. He is known to have proteinuria. He denies any active ongoing drug use. His psoriasis is under control. He does not have any nausea, vomiting, diarrhea, shortness of breath, pedal edema, paroxysmal nocturnal dyspnea, orthopnea, hematuria, renal stones. He denies taking nonsteroidal anti-inflammatories on a regular basis. His last serum creatinine was 1.76. His BP is still not at goal even after increasing the dose of medications. He has not tolerated ACEI well in the past. [facility] Medical History Arthritis Unintentional weight loss Poor dentition Failure to thrive History of COVID-19 Epigastric pain Methadone maintenance therapy patient Venous stasis of both lower extremities Compensated HCV cirrhosis Chronic, continuous use of opioids Psoriatic arthritis Chronic kidney disease, stage 3 Chronic hepatitis B Chronic hepatitis C G6PD deficiency HIV (human immunodeficiency virus infection) Surgical History History of removal of cyst No significant past surgical history Social History Alcohol intake: never Patient Tobacco Use Status: Former Tobacco user Substance Use Type: Marijuana Review of Systems Const All systems reviewed & are unremarkable except as noted in HPI and below Physical Exam Vital Signs: Last Vital Signs Pulse 98 04/12/25 11:23 BP 140/100 H 04/12/25 11:23 Pulse Ox 95 04/12/25 11:23 Oxygen Delivery Method Room Air 04/12/25 11:23 BMI result Body Mass Index 22.0 Const General: comfortable and no acute distress Orientation/consciousness: patient oriented x3 HEENT Head: Yes normocephalic Mouth: Normal oral and palatal mucosa present Eyes EOM: EOMs intact bilaterally Neck Neck: Yes supple Resp Auscultation: clear to auscultation bilaterally Cardio Jugular venous distension: no JVD Rate: regular rate GI Palpation (GI): Soft to palpation Auscultation: normal bowel sounds General: Yes no CVA tenderness Back/Spine/Pelvis Back: no CVA tenderness Skin General skin exam: no rashes or lesions noted Neuro General: patient oriented x3 and moves all extremities Extrem General: Yes no pedal edema Results Reviewed Nephrology Results: Hgb, (14.0-18.0) 15.1 g/dl 11/24/24 WBC, (4.8-10.8) 5.2 X10*3/uL 11/24/24 Plt Count, (160-400) 156 X10*3/uL L 11/24/24 Sodium, (135-145) 143 mmol/L 01/19/25 Potassium, (3.3-5.1) 3.7 mmol/L 01/19/25 Chloride, (96-108) 107 mmol/L 01/19/25 Carbon Dioxide, (22-29) 29 mmol/L 01/19/25 BUN, (9-16) 25 mg/dL H 01/19/25 Creatinine, (0.5-1.4) 1.76 mg/dL H 01/19/25 Calcium, (8.4-10.2) 9.4 mg/dL 01/19/25 Renal US 11/04/23 Assessment & Plan Assessment & Plan (1) Hypertension: Code(s): I10 - Essential (primary) hypertension Category: Medical Qualifiers: Hypertension type: secondary to other renal disorders Qualified Code(s): I15.1 - Hypertension secondary to other renal disorders (2) Nephrolithiasis: Code(s): N20.0 - Calculus of kidney Category: Medical (3) Atrophic kidney: Comment: Left atrophic Kidney Code(s): N26.1 - Atrophy of kidney (terminal) Category: Medical (4) Renal cyst: Code(s): N28.1 - Cyst of kidney, acquired Category: Medical (5) CKD stage 3b, GFR 30-44 ml/min: Code(s): N18.32 - Chronic kidney disease, stage 3b Category: Medical Plan 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 His renal functions are fairly stable . He has non nephrotic range proteinuria. He has HIV and is on antiretrovirals. He does not have any renal calculi now. He maintains good hydration. He is on amlodipine 10 mg daily. I Increased his carvedilol to 25 mg bid as his BP is still not at goal. It will be a challenge initiating him on MARTÍNEZ inhibitor or ARB due to his compliance problem. I shall consider switching his Amlodipine to Nifedipine at next visit if BP control remains sub optimally controlled. I did not make any other medication changes today. I answered all questions. Medications: Changed From carvedilol 12.5 mg PO BID 90 days 180 tabs 4RF To carvedilol 25 mg PO BID 180 tabs 4RF 90 days Coding Level of Care Code Est Pt Level 4 (92242) Diagnoses Hypertension secondary to other renal disorders I15.1 Hypertension type: secondary to other renal disorders Nephrolithiasis N20.0 Atrophic kidney N26.1 Renal cyst N28.1 CKD stage 3b, GFR 30-44 ml/min N18.32
[2025-04-12 11:23] VITALS: BP 140/100; PULSE 98; O2SAT 95; BMI 22.0
--- OUTSIDE RECORDS SUMMARY | 2025-04-12 12:12 | XMS_ITS | Encounter Summary ---
Author Organization [facility] Address [address] [place] [address] Phone Care Team Providers Care Heavy Repairer Name Role Phone Michell Mallory MD Primary Care Provider [phone] Encounter Details Date Type Department Care Team (Late st Contact Info) Description 12/21/2023 Office Communication [facility] [address] [place] [address] Shawnee Pulliam ARNP [address] [facility] [address] [facility] [address] [place] [address] Social History Tobacco Use Types [...] on filedocumented in this encounter Care Teams Heavy Repairer Relationship Specialty Start Date End Date Michell Mallory MD PCP - General Family Medicine 11/25/22 documented as of this encounter
--- OUTSIDE RECORDS SUMMARY | 2025-04-12 12:12 | XMS_ITS | Clinical Summary ---
Author Organization [facility] Address [address] [place] [address] Phone Care Team Providers Care Grain I Farmworker Name Role Phone Michell Mallory MD Primary Care Provider [phone] Allergies Active Allergy Reactions Criticality Noted Date [...] Vaccine (#1) 2025 Insurance Medicaid [place] Medicaid [place] Care Teams Grain I Farmworker Relationship Specialty Start Date End Date Michell Mallory MD PCP - General Family Medicine 11/25/22
== END 2025-04-12 11:35 | disposition home or self-care (01) ==
LOC: HO.HKA 11:21
PROVIDERS: PCP Family Medicine; Visit Provider Internal Medicine Nephrology
DX: I15.1 Hypertension secondary to other renal disorders (principal); N20.0 Calculus of kidney; N26.1 Atrophy of kidney (terminal); N28.1 Cyst of kidney, acquired; N18.32 Chronic kidney disease, stage 3b
CPT/HCPCS: 99214

== ENCOUNTER → 2025-04-12 11:21 | Outpatient (BNVA) | payer MEDICAID, SELFPAY | PROVIDERS: PCP Family Medicine; Visit Provider Internal Medicine Nephrology | DX: I15.1 Hypertension secondary to other renal disorders (principal); N20.0 Calculus of kidney; N26.1 Atrophy of kidney (terminal); N28.1 Cyst of kidney, acquired; N18.32 Chronic kidney disease, stage 3b | CPT/HCPCS: 99212 ==

== ENCOUNTER 2025-07-27 09:52 | Outpatient (REF) | payer MEDICAID, SELFPAY ==
[2025-07-27 11:06] LABS: MANUAL DIFF FLAG NO
[2025-07-27 11:13] LABS: Hematocrit 42.9 % (42.0-52.0); Hemoglobin 14.6 g/dl (14.0-18.0); Imm Gran Abs Auto 0.02 X10*3/uL (0.00-0.03); Imm Gran Pct Auto 0.3 % (0.0-0.4); Lymphocytes Absolute Auto 0.7 X10*3/uL (1.2-4.9); Mean Corpuscular HGB Conc 34.0 g/dl (31.0-36.0); Mean Corpuscular Hemoglobin 31.3 pg (27.0-33.0); Mean Corpuscular Volume 92.1 fL (80.0-98.0); NRBC Abs Auto 0.000 X10*3/uL (0.0-0.012); NRBC Pct Auto 0.0 /100WBC (0.0-0.2); Platelet Count 162 X10*3/uL (160-400); Red Blood Count 4.66 X10*6/uL (4.60-5.80); White Blood Count 6.4 X10*3/uL (4.8-10.8)
[2025-07-27 11:56] LABS: Parathyroid Hormone Intact 126.4 pg/mL (8.7-77.1)
[2025-07-27 14:27] LABS: Cholesterol 150 mg/dL (<200); HDL Cholesterol 41 mg/dL (>40); Triglycerides 54 mg/dL (<150)
[2025-07-27 14:30] LABS: Alanine Aminotransferase 18 U/L (0-40); Albumin Level 4.3 g/dL (3.5-5.0); Alkaline Phosphatase 121 U/L (39-117); Anion Gap 11 (12-20); Aspartate Amino Transferase 27 U/L (5-37); Blood Urea Nitrogen 21 mg/dL (9-16); Calcium 9.8 mg/dL (8.4-10.2); Carbon Dioxide 31 mmol/L (22-29); Chloride 105 mmol/L (96-108); Estimated Glomerular Filt Rate 35; Iron 71 mcg/dL (45-160); Percent Iron Saturation 23 % (15-50); Potassium 4.0 mmol/L (3.3-5.1); Sodium 143 mmol/L (135-145); Total Iron Binding Capacity 304 mcg/dL (228-428); Total Protein 7.3 g/dL (6.5-8.0); Unsaturated Iron Binding 233 ug/dL
[2025-07-27 14:34] LABS: Ferritin 60 ng/mL (20-250)
[2025-07-27 15:03] LABS: Reflex LDLD? No
== END 2025-07-27 09:53 ==
LOC: HO.HHCL 09:52
PROVIDERS: PCP Family Medicine; Referring Provider Internal Medicine Nephrology; Visit Provider Internal Medicine
DX: N20.0 Calculus of kidney (principal); N28.1 Cyst of kidney, acquired; N26.1 Atrophy of kidney (terminal); N18.32 Chronic kidney disease, stage 3b; Z21 Asymptomatic human immunodeficiency virus [HIV] infection status
CPT/HCPCS: 36415; 80053; 80061; 82306; 82728; 83540; 83970; 84100; 85025; 86359; 86360; 87536

== ENCOUNTER 2025-08-09 13:22 | Outpatient (AMB) | payer MEDICAID, SELFPAY ==
--- OUTSIDE RECORDS SUMMARY | 2025-08-09 13:26 | XMS_ITS | Clinical Summary ---
Author Organization [facility] Address [address] [place] [address] Phone Care Team Providers Care Supervisor Reinforced Steel Placing Name Role Phone Michell Mallory MD Primary Care Provider [phone] Allergies Active Allergy Reactions Criticality Noted Date [...] Due Date Last Done Comments Pneumococcal Vaccine: 50+ Ye ars (1 of 2 - PCV) 1984 Colorectal Cancer Screening: Annual FOBT 2014 Colorectal Cancer Screening: Colonoscopy 2014 Colorectal Cancer Screening: Sigmoidoscopy 2014 Influenza Vaccine (#1) 2025 Hepatitis B Vaccine Aged Out No longe r eligible based on patient's age to complete this topic Insurance Medicaid [place] Medicaid [place] Care Teams Supervisor Reinforced Steel Placing Relationship Specialty Start Date End Date Michell Mallory MD PCP - General Family Medicine 11/25/22
[2025-08-09 14:12] VITALS: BP 130/90; PULSE 93; O2SAT 97; BMI 21.1
--- NOTE | 2025-08-09 14:12 | HO.NEPHOV_ITS ---
Vital Signs 08/09/25 14:12 Height 5 ft 4 in Weight 123 lb BMI 21.1 BP 130/90 H Blood Pressure Location Rt brachial Position Sitting Pulse 93 Pulse Source Pulse Oximeter Pulse Oximetry (%) 97 Oxygen Delivery Method Room Air Intake Visit Reasons: CKD Coordinator Of Online Programs Required: No Accompanied by: Self / Same As Patient Allergies bictegravir (BICTEGRAVIR) Adverse Reaction (Unknown, Verified 08/09/25 14:13) Fatigued dapsone (DAPSONE) Adverse Reaction (Unknown, Verified 08/09/25 14:13) G6PD DEFICIENT methotrexate (METHOTREXATE) Adverse Reaction (Unknown, Verified 08/09/25 14:13) HIGH LFT's, Elevated LFTs Sulfa (Sulfonamide Antibiotics) (SULFA (SULFONAMIDE ANTIBIOTICS)) Adverse Reaction (Unknown, Verified 08/09/25 14:13) G6PD DEFICIENT sulfamethoxazole (From BACTRIM) Adverse Reaction (Unknown, Verified 08/09/25 14:13) G6PD Deficient, elevated LFTs trimethoprim (From BACTRIM) Adverse Reaction (Unknown, Verified 08/09/25 14:13) G6PD DEFICIENT acetaminophen (From Tylenol) Adverse Reaction (Verified 08/09/25 14:13) Gastrointestinal Upset emtricitabine (From Biktarvy) Adverse Reaction (Verified 08/09/25 14:13) Fatigued ibuprofen Adverse Reaction (Verified 08/09/25 14:13) Gastrointestinal Upset tenofovir (From Biktarvy) Adverse Reaction (Verified 08/09/25 14:13) Fatigued HPI Comments Details: Joe was seen in follow-up of his chronic kidney disease and hypertension. He has history of her HIV and is on anti retrovirals. He is known to have proteinuria. He denies any active ongoing drug use. His psoriasis is under control. He does not have any nausea, vomiting, diarrhea, shortness of breath, pedal edema, paroxysmal nocturnal dyspnea, orthopnea, hematuria, renal stones. He denies taking nonsteroidal anti-inflammatories on a regular basis. His last serum creatinine was 1.96. His BP is still not at goal even after increasing the dose of medications. He has not tolerated ACEI well in the past. [facility] Medical History Arthritis Unintentional weight loss Poor dentition Failure to thrive History of COVID-19 Epigastric pain Methadone maintenance therapy patient Venous stasis of both lower extremities Compensated HCV cirrhosis Chronic, continuous use of opioids Psoriatic arthritis Chronic kidney disease, stage 3 Chronic hepatitis B Chronic hepatitis C G6PD deficiency HIV (human immunodeficiency virus infection) Surgical History History of removal of cyst No significant past surgical history Social History Alcohol intake: never Patient Tobacco Use Status: Former Tobacco user Substance Use Type: Marijuana Review of Systems Const All systems reviewed & are unremarkable except as noted in HPI and below Physical Exam Vital Signs: Last Vital Signs Pulse 93 08/09/25 14:12 BP 154/90 H 08/09/25 14:12 Pulse Ox 97 08/09/25 14:12 Oxygen Delivery Method Room Air 08/09/25 14:12 BMI result Body Mass Index 21.1 Const General: comfortable and no acute distress Orientation/consciousness: patient oriented x3 HEENT Head: Yes normocephalic Mouth: Normal oral and palatal mucosa present Eyes EOM: EOMs intact bilaterally Neck Neck: Yes supple Resp Auscultation: clear to auscultation bilaterally Cardio Jugular venous distension: no JVD Rate: regular rate GI Palpation (GI): Soft to palpation Auscultation: normal bowel sounds General: Yes no CVA tenderness Back/Spine/Pelvis Back: no CVA tenderness Skin General skin exam: no rashes or lesions noted Neuro General: patient oriented x3 and moves all extremities Extrem General: Yes no pedal edema Results Reviewed Nephrology Results: Hgb, (14.0-18.0) 14.6 g/dl 07/27/25 WBC, (4.8-10.8) 6.4 X10*3/uL 07/27/25 Plt Count, (160-400) 162 X10*3/uL 07/27/25 Sodium, (135-145) 143 mmol/L 07/27/25 Potassium, (3.3-5.1) 4.0 mmol/L 07/27/25 Chloride, (96-108) 105 mmol/L 07/27/25 Carbon Dioxide, (22-29) 31 mmol/L H 07/27/25 BUN, (9-16) 21 mg/dL H 07/27/25 Creatinine, (0.5-1.4) 1.96 mg/dL H 07/27/25 Calcium, (8.4-10.2) 9.8 mg/dL 07/27/25 Phosphorus, (2.7-4.5) 1.9 mg/dL L 07/27/25 PTH Intact, (8.7-77.1) 126.4 pg/mL H 07/27/25 Renal US 11/04/23 Assessment & Plan Assessment & Plan (1) Nephrolithiasis: Code(s): N20.0 - Calculus of kidney Category: Medical (2) Atrophic kidney: Comment: Left atrophic Kidney Code(s): N26.1 - Atrophy of kidney (terminal) Category: Medical (3) CKD stage 3b, GFR 30-44 ml/min: Code(s): N18.32 - Chronic kidney disease, stage 3b Category: Medical Plan 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 His renal functions are fairly stable . He has non nephrotic range proteinuria. He has HIV and is on antiretrovirals. He does not have any renal calculi now. He maintains good hydration. He is on amlodipine 10 mg daily and C/W carvedilol to 25 mg bid . It will be a challenge initiating him on MARTÍNEZ inhibitor or ARB due to his compliance problem. I shall consider switching his Amlodipine to Nifedipine at next visit if BP control remains sub optimally controlled. I did not make any other medication changes today. I answered all questions. Orders: Orders Electrolytes 3 Months N18.32 - Chronic kidney disease, stage 3b Blood Urea Nitrogen 3 Months N18.32 - Chronic kidney disease, stage 3b Creatinine 3 Months N18.32 - Chronic kidney disease, stage 3b Coding Level of Care Code Est Pt Level 4 (60444) Diagnoses Nephrolithiasis N20.0 Atrophic kidney N26.1 CKD stage 3b, GFR 30-44 ml/min N18.32
== END 2025-08-09 14:27 | disposition home or self-care (01) ==
LOC: HO.HKA 13:23
PROVIDERS: PCP Family Medicine; Visit Provider Internal Medicine Nephrology
DX: N20.0 Calculus of kidney (principal); N26.1 Atrophy of kidney (terminal); N18.32 Chronic kidney disease, stage 3b
CPT/HCPCS: 99214

== ENCOUNTER → 2025-08-09 13:22 | Outpatient (BNVA) | payer MEDICAID, SELFPAY | PROVIDERS: PCP Family Medicine; Visit Provider Internal Medicine Nephrology | DX: I12.9 Hypertensive chronic kidney disease with stage 1 through stage 4 chronic kidney disease, or unspecified chronic kidney disease (principal); N18.32 Chronic kidney disease, stage 3b; N20.0 Calculus of kidney; R80.9 Proteinuria, unspecified; Z21 Asymptomatic human immunodeficiency virus [HIV] infection status; Z79.899 Other long term (current) drug therapy; Z87.891 Personal history of nicotine dependence | CPT/HCPCS: 99212 ==